=== PATIENT | female | born 1930 | race Caucasian/White ===

== ENCOUNTER 2016-10-31 11:59 | Emergency (ER) | payer OTHER ==
[2016-10-31 12:10] VITALS: BP 144/86; PULSE 82; TEMP 98.3; BMI 31.2
[2016-10-31] MEDS ORDERED: KETOROLAC TROMETHAMINE 30 MG/1 ML VIAL IM ONE (13:05)
--- NOTE | 2016-10-31 13:13 | PDOC ---
History of Present Illness - General Chief Complaint: Pain Stated Complaint: PAIN Time Seen by Provider: 10/31/16 12:27 - History of Present Illness Initial Comments: 10/31/16 13:07 CHIEF COMPLAINT: hip/leg pain HISTORY OF PRESENT ILLNESS: 86 yo F with hx of HTN [facility] with chronic hip and leg pain. Patient reports that she has had this pain "for a long time" and was in physical therapy last year for it, which did help but the pain has returned. She describes the pain as started from her left lower back radiating down her L hip and leg. She was prescribed gabapentin and ibuprofen by her primary care doctor but she has stopped taking the ibuprofen. She reports that the gabapentin does help with her pain but only for a short amount of time. She denies any recent fall, trauma, or injury. She denies any loss of sensation to her legs or any loss of bowel or bladder function. No recent travel or sick contacts. PAST MEDICAL HISTORY: Denies past medical history FAMILY HISTORY: Denies SOCIAL HISTORY: Denies tobacco, alcohol, illicit drug use. SURGICAL HISTORY: Denies ALLERGIES: N REVIEW OF SYSTEMS General/Constitutional: Denies fever or chills. Denies weakness, weight change. HEENT: Denies change in vision. Denies ear pain or discharge. Denies sore throat. Cardiovascular: Denies chest pain or shortness of breath. Respiratory: Denies cough, wheezing, or hemoptysis. Gastrointestinal: Denies nausea, vomiting, diarrhea or constipation. Denies rectal bleeding. Genitourinary: Denies dysuria, frequency, or change in urination. Musculoskeletal: Left lower back/hip/leg pain. Denies neck pain Skin and breasts: Denies rash or easy bruising. Neurologic: Denies headache, vertigo, loss of consciousness, or loss of sensation. PHYSICAL EXAM General Appearance: Well-appearing, appropriately dressed. No apparent distress. HEENT: EOMI, PERRLA Respiratory/Chest: Lungs CTAB. Cardiovascular: RRR. S1, S2. Gastrointestinal/Abdominal: Normal bowel sounds. Abdomen soft, non-distended. No tenderness or rebound tenderness. No organomegaly, pulsatile mass, guarding , hernia, hepatomegaly, splenomegaly. Musculoskeletal/Extremities: Tenderness to L hip on palpation. Normal inspection. FROM of all extremities, normal capillary refill. Pelvis Stable. No tenderness to extremities, pedal edema, swelling, erythema or deformity. Integumentary: Appropriate color, dry, warm. No cyanosis, erythema, jaundice or rash Neurologic: microstrategy developer II-XII intact. Fully oriented, alert. Appropriate mood/affect. Motor strength 5/5. No appreciable EOM palsy, facial droop or sensory deficit. Past History - Past Medical History Allergies/Adverse Reactions: Allergies Allergy/AdvReac Type Severity Reaction Status Date / Time Penicillins Allergy Unknown Verified 10/31/16 12:06 Home Medications: Ambulatory Orders Aspirin [Aspirin EC] 81 mg PO DAILY 06/09/11 Enalapril Maleate [Vasotec -] 2.5 mg PO DAILY 06/09/11 Hydrochlorothiazide [Hydrodiuril] 25 mg PO DAILY 06/09/11 Ibuprofen [Motrin -] 600 mg PO QID 03/29/14 Anemia: No Asthma: No Cancer: No Cardiac Disorders: No CVA: No COPD: No CHF: No Dementia: No Diabetes: No GI Disorders: No Disorders: No HTN: Yes Hypercholesterolemia: No Liver Disease: No Seizures: No Thyroid Disease: No - Surgical History Abdominal Surgery: Yes Appendectomy: Yes Cardiac Surgery: No Cholecystectomy: Yes Lung Surgery: No Neurologic Surgery: No Orthopedic Surgery: No - Psycho/Social/Smoking Cessation Hx Anxiety: No Suicidal Ideation: No Smoking Status: No Smoking History: Never smoked Have you smoked in the past 12 months: No Number of Cigarettes Smoked Daily: 0 Information on smoking cessation initiated: No Hx Alcohol Use: No Drug/Substance Use Hx: No Substance Use Type: None Hx Substance Use Treatment: No *Physical Exam - Vital Signs Last Vital Signs Temp Pulse Resp BP Pulse Ox 98.3 F 82 18 144/86 100 10/31/16 12:07 10/31/16 12:07 10/31/16 12:07 10/31/16 12:07 10/31/16 12:07 Medical Decision Making - Medical Decision Making 10/31/16 13:11 86 yo F with hx of HTN [facility] with chronic L hip and leg pain. -30 mg IM Toradol Advised patient to f/u with orthopedics for MRI/PT and of signs and symptoms for return to ER. Patient and daughter at bedside verbalized understanding and agree to plan. *DC/Admit/Observation/Transfer Diagnosis at time of Disposition: Leg pain, left Hip pain Qualifiers: Laterality: left Qualified Code(s): M25.552 - Pain in left hip - Discharge Dispostion Disposition: HOME Condition at time of disposition: Stable Admit: No - Referrals Referrals: Melva Lopez MD [Primary Care Provider] - Mayur Castellon MD [Staff Physician] - - Patient Instructions Printed Discharge Instructions: Help for Hip Pain, DI for Back Pain With Sciatica Additional Instructions: As discussed, please continue taking the gabapenting that was prescribed by your primary care doctor. Please follow up with orthopedics this week for a possible MRI and/or physical therapy to help with your pain. If you experience any numbness, tingling, or loss of sensation to your legs, loss of bowel or bladder function, fever, chest pain, shortness of breath, or any new or worsening symptoms, please return to the ER. [place] se discuti, por favor contine tomando gabapentin que fue recetado por romo mdico. Por favor, siga con la ortopedia esta semana para namita posible MRI y / o terapia fsica para ayudar con romo dolor. Si experimenta cualquier entumecimiento , hormigueo o prdida de sensibilidad en las piernas, prdida de la funcin de orina or defecacion, fiebre, dolor en el pecho, dificultad para respirar o cualquier sntoma nuevo o que empeora, por favor regrese a la edvin de emergencias. Print Language: NAMIBIAN
[2016-10-31] MEDS ORDERED: KETOROLAC TROMETHAMINE 30 MG/1 ML VIAL ONE (13:15)
== END 2016-10-31 13:34 | disposition home or self-care (01) ==
LOC: JERFT 11:59
PROC: 3E0233Z Introduction of Anti-inflammatory into Muscle, Percutaneous Approach (ICD-10-PCS; principal; 2016-10-31)
DX: M25.552 Pain in left hip (principal); M79.605 Pain in left leg; G89.29 Other chronic pain
CPT/HCPCS: 96372; 99281-25

== ENCOUNTER 2016-11-14 06:48 | Emergency (ER) | payer OTHER ==
[2016-11-14 07:25] VITALS: BP 124/68; PULSE 76; TEMP 98; BMI 31.4
--- NOTE | 2016-11-14 08:20 | PDOC ---
History of Present Illness - General Chief Complaint: Back Pain Stated Complaint: RIGHT HIP PAIN Time Seen by Provider: 11/14/16 08:17 History Source: Patient Exam Limitations: No Limitations - History of Present Illness Initial Comments: CHIEF COMPLAINT: 86 y/o afebrile female with PMH HTN here with right hip and leg pain. HISTORY OF PRESENT ILLNESS: The patient has chronic left hip pain, was seen here about 10 days ago for that pain and had a toradol injection in her right buttock. She states since then she has had right hip pain that radiates into her right leg. She is currently taking meloxicam once a day for her symptoms which doesn't help as much as the ibuprofen she used to take. She denies fall, trauma to back or hip, inability to walk, numbness/tingling in LEs, saddle anesthesia, bowel/bladder incontinence. Vital signs on arrival are within normal limits. REVIEW OF SYSTEMS: GENERAL/CONSTITUTIONAL: No fever/chills. No weakness. No weight change.. GENITOURINARY: No dysuria, frequency, or change in urination. MUSCULOSKELETAL: +right hip pain. No neck or back pain. SKIN: No rash or easy bruising. NEUROLOGIC: No headache, vertigo, loss of consciousness, or loss of sensation. PHYSICAL EXAM GENERAL: The patient is awake, alert, and fully oriented, in no acute distress. She ambulates with a limp and uses a cane. HEAD: Normal with no signs of trauma. EYES: Pupils equal, round and reactive to light, extraocular movements intact, sclera anicteric, conjunctiva clear. BACK: No midline lumbar spine TTP. Full flexion/extension of lumbar spine. EXTREMITIES: Normal range of motion, no edema. Pain and reproduction of sympotoms with palpation of right buttock, especially in the area of the piriformis muscles. NEUROLOGICAL: Normal speech. ambulates with limp. No saddle anesthesia. SKIN: Warm, Dry, normal turgor, no rashes or lesions noted. Past History - Past Medical History Allergies/Adverse Reactions: Allergies Allergy/AdvReac Type Severity Reaction Status Date / Time Penicillins Allergy Unknown Verified 11/14/16 07:05 Home Medications: Ambulatory Orders Aspirin [Aspirin EC] 81 mg PO DAILY 06/09/11 Enalapril Maleate [Vasotec -] 2.5 mg PO DAILY 06/09/11 Hydrochlorothiazide [Hydrodiuril] 25 mg PO DAILY 06/09/11 Ibuprofen [Motrin -] 600 mg PO QID 03/29/14 Meloxicam [Mobic (Nf) -] 15 mg PO DAILY #30 tablet MDD 15mg 11/03/16 Anemia: No Asthma: No Cancer: No Cardiac Disorders: No CVA: No COPD: No CHF: No Dementia: No Diabetes: No GI Disorders: No Disorders: No HTN: Yes Hypercholesterolemia: No Liver Disease: No Seizures: No Thyroid Disease: No - Surgical History Abdominal Surgery: Yes Appendectomy: Yes Cardiac Surgery: No Cholecystectomy: Yes Lung Surgery: No Neurologic Surgery: No Orthopedic Surgery: No - Psycho/Social/Smoking Cessation Hx Anxiety: No Suicidal Ideation: No Smoking Status: No Smoking History: Never smoked Have you smoked in the past 12 months: No Number of Cigarettes Smoked Daily: 0 Information on smoking cessation initiated: No Hx Alcohol Use: No Drug/Substance Use Hx: No Substance Use Type: None Hx Substance Use Treatment: No *Physical Exam - Vital Signs Last Vital Signs Temp Pulse Resp BP Pulse Ox 98.0 F 76 18 124/68 100 11/14/16 07:05 11/14/16 07:05 11/14/16 07:05 11/14/16 07:05 11/14/16 07:05 Medical Decision Making - Medical Decision Making A/P: 86 y/o female with right sided sciatica. When she was here 10 days ago she was instructed to call Dr. Castellon and her PCP for follow up MRI and physical therapy. She has not called either doctor. I strongly encouraged her to follow up with both as soon as possible. Her daughter is here with her and states she will call today. I showed her some stretching exercises in the ER to help with her pain and suggested she do them every hour but she is refusing because it causes pain. I suggested she stop taking the meloxicam and restart taking the ibuprofen as it helped her more. Pt instructed to return to the ER with any worsening or concerning symptoms. The patient verbalizes understanding of all instructions, has no further questions and is awaiting discharge. *DC/Admit/Observation/Transfer Diagnosis at time of Disposition: Piriformis syndrome of right side - Discharge Dispostion Disposition: HOME Condition at time of disposition: Good - Referrals Referrals: Melva Lopez MD [Primary Care Provider] - (Call today) Mayur Castellon MD [Staff Physician] - (Call today) - Patient Instructions Printed Discharge Instructions: DI for Sciatica Additional Instructions: Discharge Instructions: -Stop taking Meloxicam. Start taking Ibuprofen again - you can take 3 times per day with food -Stretch both hips every hour at home -Call Dr. Gely Nelson and Dr. Castellon today to schedule follow up appointments for MRI and Physical therapy Instrucciones de sudhakar: - Deje de misael Meloxicam. Comience a misael de nuevo el ibuprofeno - puede misael 3 veces al da con alimentos - Estirar ambas caderas cada hora en casa - Llame al Dr. Gely Nelson y al Dr. Ravinder huggins para programar citas de seguimiento para MRI y Fisioterapia
== END 2016-11-14 09:06 | disposition home or self-care (01) ==
LOC: JERFT 06:48 → JER 06:48 → JERFT 09:06
DX: M54.31 Sciatica, right side (principal); I10 Essential (primary) hypertension
CPT/HCPCS: 99281-25

== ENCOUNTER 2018-11-01 06:17 | Emergency (ER) | payer OTHER | END 2018-11-01 11:08 | disposition home or self-care (01) | LOC: JER 06:17 ==

== ENCOUNTER 2019-07-24 06:42 | Emergency (ER) | payer OTHER ==
[2019-07-24 06:58] VITALS: BMI 29.9
[2019-07-24 07:59] LABS: BASO % 0.9 % (0-2.0); EOS % 2.2 % (0-4.5); HEMATOCRIT 40.8 % (32.4-45.2); HEMOGLOBIN 13.9 GM/dL (10.7-15.3); LYMPH % 20.6 % (8-40); MCH 33.5 pg (25.7-33.7); MCHC 34.1 g/dl (32.0-36.0); MEAN CELL VOLUME 98.3 fl (80-96); MEAN PLT VOLUME 8.4 fl (7.5-11.1); MONO % 11.3 % (3.8-10.2); PLATELET COUNT 241 K/MM3 (134-434); RBC 4.15 M/mm3 (3.60-5.2); RDW 14.6 % (11.6-15.6); WHITE BLOOD COUNT 5.5 K/mm3 (4.0-10.0)
[2019-07-24 08:22] LABS: ALBUMIN 3.4 g/dl (3.4-5.0); BLOOD UREA NITROGEN 19.1 mg/dL (7-18); CALCIUM 8.7 mg/dL (8.5-10.1); CREATININE 0.8 mg/dL (0.55-1.3); POTASSIUM 4.7 mmol/L (3.5-5.1); TOT PROT 7.1 g/dl (6.4-8.2)
[2019-07-24 08:30] LABS: PH,URINE 6.5 (5.0-8.0); URINE APPEARANCE CLEAR; URINE BILIRUBIN NEGATIVE (NEGATIVE); URINE COLOR YELLOW; URINE GLUCOSE (UA) NEGATIVE (NEGATIVE); URINE KETONE NEGATIVE (NEGATIVE); URINE LEUK ESTERASE NEGATIVE (NEGATIVE); URINE NITRITE NEGATIVE (NEGATIVE); URINE PROTEIN NEGATIVE (NEGATIVE); URINE UROBILINOGEN 0.2 mg/dL (0.2-1.0)
--- NOTE | 2019-07-24 08:34 | PDOC ---
Documentation entered by Mouna Abraham SCRIBE, acting as scribe for Braden Ornelas MD. Braden Ornelas MD: This documentation has been prepared by the Jarad de anda Adrianna, SCRIBE, under my direction and personally reviewed by me in its entirety. I confirm that the documentation accurately reflects all work, treatment, procedures, and medical decision making performed by me. History of Present Illness - General Chief Complaint: Urinary Problem Stated Complaint: URINARY RETENTION Time Seen by Provider: 07/24/19 07:10 - History of Present Illness Initial Comments: The patient is an 89 year old female, with a significant PMH of HTN, depression , and overactive bladder, who presents to the ED for evaluation of urinary retention and constipation for 2-3 days. Patient complains of urinary urgency and frequency, but voids little to no urine (feels like she cannot void entirely ). She states it takes effort to urinate, and when trying to do so she experiences suprapubic discomfort. Denies any dysuria or hematuria. Patient additionally complains of constipation, noting she strains but is only able to pass small, hard stools. Denies nausea, vomit, diarrhea, flank pain. Allergies: Penicillins Surgical History: Appendectomy, cholecystectomy Social History: No toxic habits PCP: Dr. Hong Past History - Past Medical History Allergies/Adverse Reactions: Allergies Allergy/AdvReac Type Severity Reaction Status Date / Time Penicillins Allergy Unknown Verified 07/24/19 06:58 Home Medications: Ambulatory Orders Bupropion HCl [Bupropion Xl] 150 mg PO DAILY 07/24/19 Cholecalciferol (Vitamin D3) [Vitamin D3] 50,000 unit PO WEEKLY 07/24/19 Enalapril Maleate 2.5 mg PO DAILY 07/24/19 Trospium Chloride [Trospium Chloride ER] 20 mg PO BID 07/24/19 Anemia: No Asthma: No Cancer: No Cardiac Disorders: No CVA: No COPD: No CHF: No DVT: No Dementia: No Diabetes: No GI Disorders: No Disorders: No HTN: Yes Hypercholesterolemia: No Liver Disease: No Seizures: No Thyroid Disease: No - Surgical History Abdominal Surgery: Yes Appendectomy: Yes Cardiac Surgery: No Cholecystectomy: Yes Lung Surgery: No Neurologic Surgery: No Orthopedic Surgery: No - Psycho Social/Smoking Cessation Hx Smoking Status: No Smoking History: Unknown if ever smoked Have you smoked in the past 12 months: No Number of Cigarettes Smoked Daily: 0 Hx Alcohol Use: No Drug/Substance Use Hx: No Substance Use Type: None Hx Substance Use Treatment: No Abd/GI Specific PMHX - Complaint Specific PMHX Colitis: No Diverticulitis: No Gall Bladder Disease: No GERD: No Hepatitis: No Irritable Bowel Synd (IBS): No Pancreatitis: No GI Ulcer Disease: No Review of Systems - Review of Systems Comments:: CONSTITUTIONAL: No fever, no chills, no fatigue EYES: No visual changes ENT: No ear pain, no sore throat CARDIOVASCULAR: No chest pain, no palpitations RESPIRATORY: No cough, no SOB GI: +Constipation. +Suprapubic discomfort when trying to void. No nausea, no vomiting, no diarrhea GENITOURINARY: +Urinary retention. +Urinary frequency. +Urinary urgency. No dysuria, no hematuria MUSKULOSKELETAL: No back pain, no joint pain, no myalgias SKIN: No rash NEURO: No headache *Physical Exam - Vital Signs Last Vital Signs Temp Pulse Resp BP Pulse Ox 98.3 F 96 H 18 147/72 95 07/24/19 06:51 07/24/19 06:51 07/24/19 06:51 07/24/19 06:51 07/24/19 06:51 - Physical Exam CONSTITUTIONAL: Well-appearing; well-nourished; in no apparent distress HEAD: Normocephalic; atraumatic EYES: PERRL; EOM intact ENMT: External appears normal; normal oropharynx NECK: Supple; non-tender; no cervical lymphadenopathy CARD: Normal S1, S2; no murmurs, rubs, or gallops RESP: Normal chest excursion with respiration; breath sounds clear and equal bilaterally; no wheezes, rhonchi, or rales ABD: Soft, non-distended; non-tender; no palpable organomegaly, no palpable hernias EXT: Normal ROM in all four extremities; non-tender to palpation; distal pulses intact SKIN: Warm, dry, no rash NEURO: No focal neurological deficiencies. ED Treatment Course - LABORATORY CBC & Chemistry Diagram: 07/24/19 07:40 07/24/19 07:40 - ADDITIONAL ORDERS Additional order review: Laboratory Results 07/24/19 07:40 Sodium 137 Potassium 4.7 Chloride 105 Carbon Dioxide 26 Anion Gap 5 L BUN 19.1 H Creatinine 0.8 Est GFR (CKD-EPI)AfAm 76.29 Est GFR (CKD-EPI)NonAf 65.82 Random Glucose 99 Calcium 8.7 Total Bilirubin 1.0 AST 19 ALT 17 Alkaline Phosphatase 75 Total Protein 7.1 Albumin 3.4 07/24/19 07:40 RBC 4.15 MCV 98.3 H MCHC 34.1 RDW 14.6 MPV 8.4 Neutrophils % 65.0 Lymphocytes % 20.6 D Monocytes % 11.3 H Eosinophils % 2.2 Basophils % 0.9 - RADIOLOGY Radiology Studies Ordered: Category Date Time Status ABDOMEN-KUB FLAT PLATE [RAD] Stat Radiology 07/24/19 07:29 Ordered Radiograph Interpretation: EXAM#: TYPE/EXAM: RESULT: [id number] RAD/ABDOMEN-KUB FLAT PLATE ADDENDUM ADDENDUM #1 Incidental note is made of some punctate densities seen in the excessive soft tissues and projected over the right colon. ORIGINAL REPORT Abdomen: Pain Impression: Constipation. Scoliosis with degenerative changes. Reported By: Venkatesh Brown MD 07/24/19 09:01 Medical Decision Making - Medical Decision Making 07/24/19 08:32 Patient is an 89-year-old Upper Sor[place]-speaking female with history of hypertension, depression, overactive bladder who presents to the ER with 3 days of persistent symptoms of constipation and difficulty urinating, requiring excessive straining to void. Patient denies abdominal pain/dysuria/fever/chills/nausea/ vomiting. In the ER, patient is awake and alert; serial abdominal exams reveal no focal abdominal tenderness. There is no CVA tenderness bilaterally. Cadena catheter placement revealed 200 mL of clear urine. I suspect patient's symptoms are related to medication used for treatment of the overactive bladder. Will obtain KUB to evaluate degree of constipation. Will consider fleets enema for treatment if noted. Will obtain CBC/CMP/UA/urine culture. Likely discharge. 07/24/19 09:23 As per patient reassessed. Patient is resting comfortably, remains symptom- free. CBC/CMP within normal limit. Urinalysis reveals no evidence of pyuria. KUB reveals significant amount of retained stool. Patient's urinary symptoms are likely related to her trospium treatment for hyperactive bladder. Patient has follow-up with PMD at which time I have advised the patient to discuss decreasing the dosage. Will prescribe mineral oil enema and MiraLAX for the treatment of constipation. Plan of care explained to the patient and her daughter and they have expressed understanding. Discharge - Discharge Information Problems reviewed: Yes Clinical Impression/Diagnosis: Dysuria Constipation Qualifiers: Constipation type: unspecified constipation type Qualified Code(s): K59.00 - Constipation, unspecified Condition: Stable Disposition: HOME - Follow up/Referral Referrals: Melva Lopez MD [Primary Care Provider] - - Patient Discharge Instructions Patient Printed Discharge Instructions: DI for Urinary Retention in Women, DI for Constipation Additional Instructions: Your difficulty urinating is likely related to trospium therapy. Please discuss with your primary care physician decreasing the dosage. Use mineral oil enemas and MiraLAX as prescribed. Return to the ER for severe abdominal pain, nausea, vomiting, fevers, chills. Print Language: MOHAWK - Post Discharge Activity
[2019-07-24 10:02] VITALS: BP 144/74; PULSE 83; TEMP 98.2
== END 2019-07-24 10:00 | disposition home or self-care (01) ==
LOC: JER 06:42 → EDBD 06:42 → JER 10:00
DX: K59.00 Constipation, unspecified (principal); I10 Essential (primary) hypertension; F32.9 Major depressive disorder, single episode, unspecified; N32.81 Overactive bladder
CPT/HCPCS: 36415; 74018-TC-FY; 80053; 81003; 85025; 87086; 99284-25

== ENCOUNTER 2020-02-20 07:41 | Emergency (ER) | payer OTHER ==
[2020-02-20 07:54] VITALS: TEMP 98.1; BMI 29.9
--- OUTSIDE RECORDS SUMMARY | 2020-02-20 08:02 | XMS ---
:1930 [facility] Providers Name Role Phone ED STAFF PHYSICIANHARRIETT Unavailable Unavailable ELIZABETH WYATT Unavailable Unavailable HERNANDEZ, HANNAH A DO Unavailable HERNANDEZ, A DO Unavailable HERNANDEZ, A DO Unavailable HERNANDEZ, A DO Unavailable HERNANDEZ, A DO Unavailable HERNANDEZ, A DO Unavailable HERNANDEZ, A DO Unavailable HERNANDEZ, A DO Unavailable ED STAFF PHYSICIAN Unavailable Unavailable NEGHASSI Unavailable Unavailable ED STAFF PHYSICIAN Unavailable Unavailable RANJIT POSADA Unavailable Unavailable ED STAFF PHYSICIAN Unavailable Unavailable CHASIDY CORDERO Unavailable Unavailable SHERINE Aldridge Unavailable Unavailable Re-disclosure Warning The records that you are about to access may contain information from federally- assisted alcohol or drug abuse programs. If such information is present, then the following federally mandated warning applies: This information has been disclosed to you from records protected by federal confidentiality rules (42 CFR part 2). The federal rules prohibit you from making any further disclosure of this information unless further disclosure is expressly permitted by the written consent of the person to whom it pertains or as otherwise permitted by 42 CFR part 2. A general authorization for the release of medical or other information is NOT sufficient for this purpose. The Federal rules restrict any use of the information to criminally investigate or prosecute any alcohol or drug abuse patient.The records that you are about to access may contain highly sensitive health information, the redisclosure of which is protected by Article 27-F of the [facility] Public Health law. If you continue you may haveaccess to information: Regarding HIV / AIDS; Provided by facilities licensed or operated by the [facility] Office of Mental Health; or Provided by the [facility] Office for People With Developmental Disabilities. If such information is present, then the following [facility] mandated warning applies: This information has been disclosed to you from confidential records which are protected by state law. State law prohibits you from making any further disclosure of this information without the specific written consent of the person to whom it pertains, or as otherwise permitted by law. Any unauthorized further disclosure in violation of state law may result in a fine or alf sentence or both. A general authorization for the release of medical or other information is NOT sufficient authorization for further disclosure. Allergies and Adverse Reactions Type Description Substance Reaction Status Data Source(s ) No Known No Known Allergies No Known eCW3 ( [facility] Allergies Allergies [facility]) No Known No Known Allergies No Known eCW3 ( [facility] Allergies Allergies [facility]) No Known No Known Allergies No Known eCW3 ( [facility] Allergies Allergies [facility]) No Known No Known Allergies No Known eCW3 ( [facility] Allergies Allergies [facility]) Encounters Encounter Providers Location Date Indications Data Source(s ) Emergency Attender: HARRIETT ED H 02/04/2020 Martha Covarrubias STAFF 06:52:00 AM EDT Medical C enter PHYSICIANAttender: - 02/04/2020 STAFF ED STAFF 10:32:00 AM EDT PHYSICIANAdmitter: HARRIETT ED STAFF PHYSICIAN Patient discharged. Emergency Attender: CONOR Diez 01/31/2020 08:09 :00 AM [facility] Lupe: STAFF ED STAFF EDT - 01/31/2020 [facility] PHYSICIANAdmitter: CONOR 10:39:00 AM EDT SHERINE PERDOMO CReferrer: STAFF ED STAFF PHYSICIAN Patient discharged. Outpatient Attender: DENYS Diez 01/20/2020 01:48:00 P M [facility] AKINYEMIAdmitter: GIL EDT [facility] BITACHODBRYAN PATRICKZUNI COMPRE[facility] HEALTH CENTERReferrer: HANNAH HERNANDEZ DO Emergency Attender: ED STAFF H 11/29/2019 08:16:00 AM [facility] PHYSICIANAttender: ELIZABETH EDT - 11/29/2019 [facility] OUSEPH ELIZABETH AAttender: STAFF 12:25:00 PM EDT ED STAFF PHYSICIANAdmitter: ED STAFF PHYSICIAN Patient discharged. 11/29/2019 12:00:00 AM [facility] Emergency Attender: CONOR Diez 09/10/2019 11:01:00 AM [facility] CAtgerry: STAFF EDT - 09/10/2019 06:09:0 0 Center ED STAFF PM EDT PHYSICIANAdmitter: CONOR Aldridge Patient discharged. Emergency Attender: PETRA ED STAFF H 05/04/2019 01:53:00 PM [facility] PHYSICIANAttender: STAFF ED EST - 05/04/2019 Medical Center STAFF PHYSICIANAdmitter: PETRA 07:53:00 PM EST ED STAFF PHYSICIAN Patient discharged. Outpatient [facility] 02/12/2019 12:00:00 e CW3 ([facility] A28 AM EDT - 02/12/2019 [facility] 12:00:00 AM EDT Care) Outpatient [facility] 02/05/2019 12:00:00 e CW3 ([facility] A28 AM EDT - 02/05/2019 [facility] 12:00:00 AM EDT Care) Outpatient [facility] 11/13/2018 12:00:00 e CW3 ([facility] A28 AM EDT - 11/13/2018 [facility] 12:00:00 AM EDT Care) Outpatient Attender: GIL Diez 11/08/2018 08:29:00 [facility] CHASIDY EDT Medical Sheri shahid GILAdmitter: GIL CORDEROReferrer: CODY MCKEON Outpatient [facility] 11/05/2018 12:00:00 e CW3 ([facility] A28 AM EDT - 11/05/2018 [facility] 12:00:00 AM EDT Care) Emergency H 10/01/2018 06:58:00 [facility] EDT [facility] Immunizations Vaccine Date Status Description Data Source(s) Tdap 02/23/2012 09:22:20 AM completed eCW3 ([facility] EDT Care) Medications Medication Brand Start Product Dose Route Administrative Pharmacy [facility] Indications Reaction Description Data Name Date Form Instructions Instructions Source(s) Vitamin B Vitami 10/01/ active Vitamin B -12 eCW3 12 0.05 MG n B-12 2019 50 MCG ([facility] Oral Tablet 50 MCG 12:00: Rive r Vitamin 00 AM Health B-12 50 MCG EDT Care) Vitamin B Vitami 10/01/ suspend Vitamin B-12 eCW3 12 0.05 MG n B-12 2019 ed 50 MCG ([facility] Oral Tablet 50 MCG 12:00: Rive r Vitamin 00 AM Health B-12 50 MCG EDT Care) Vitamin B Vitami 10/01/ suspend Vitamin B-12 eCW3 12 0.05 MG n B-12 2020 ed 50 MCG ([facility] Oral Tablet 50 MCG 12:00: Rive r Vitamin 00 AM Health B-12 50 MCG EDT Care) Vitamin B Vitami 10/01/ active Vitamin B -12 eCW3 12 0.05 MG n B-12 2019 50 MCG ([facility] Oral Tablet 50 MCG 12:00: Rive r Vitamin 00 AM Health B-12 50 MCG EDT Care) Trazodone Trazod 1.0 active Trazodone eCW3 Hydrochlori one 2019 {tabl HCl 50 MG ([facility] de 50 MG HCl 50 12:00: et_at [place] Oral Tablet MG 00 AM _bedt Health Trazodone EST ime_a Care) HCl 50 MG s_nee ded} Trazodone Trazod 1.0 active Trazodone eCW3 Hydrochlori one 2019 {tabl HCl 50 MG ([facility] de 50 MG HCl 50 12:00: et_at [place] Oral Tablet MG 00 AM _bedt Health Trazodone EST ime_a Care) HCl 50 MG s_nee ded} Blood Blood 11/13/ suspend Blood eCW3 Pressure Pressu 2019 ed Pressure ([facility] Monitor - re 12:00: Monitor - Lorie er Monito 00 AM Health r - EDT Care) RAI Bandage UNK 11/13/ suspend RAI Band age eCW3 - 2018 ed - ([facility] 12:00: [facility] 00 AM Health EDT Care) Acetaminoph Acetam 11/13/ active Acetami nophe eCW3 en 500 MG inophe 2019 n 500 mg ([facility] Oral Tablet n 500 12:00: [facility] Acetaminoph mg 00 AM Health en 500 mg EDT Care) Acetaminoph Acetam 11/13/ active Acetami nophe eCW3 en 500 MG inophe 2019 n 500 mg ([facility] Oral Tablet n 500 12:00: [facility] Acetaminoph mg 00 AM Health en 500 mg EDT Care) RAI Bandage UNK 11/13/ suspend RAI Band age eCW3 - 2018 ed - ([facility] 12:00: [facility] 00 AM Health EDT Care) Acetaminoph Acetam 11/13/ active Acetami nophe eCW3 en 500 MG inophe 2019 n 500 mg ([facility] Oral Tablet n 500 12:00: [facility] Acetaminoph mg 00 AM Health en 500 mg EDT Care) RAI Bandage UNK 11/13/ suspend RAI Band age eCW3 - 2018 ed - ([facility] 12:00: [facility] 00 AM Health EDT Care) Blood Blood 11/13/ suspend Blood eCW3 Pressure Pressu 2019 ed Pressure ([facility] Monitor - re 12:00: Monitor - Lorie er Monito 00 AM Health r - EDT Care) Blood Blood 11/13/ suspend Blood eCW3 Pressure Pressu 2019 ed Pressure ([facility] Monitor - re 12:00: Monitor - Lorie er Monito 00 AM Health r - EDT Care) Acetaminoph Acetam 11/13/ active Acetami nophe eCW3 en 500 MG inophe 2019 n 500 mg ([facility] Oral Tablet n 500 12:00: [facility] Acetaminoph mg 00 AM Health en 500 mg EDT Care) RAI Bandage UNK suspend RAI Band age eCW3 - 2019 ed - ([facility] 12:00: [facility] 00 AM Health EDT Care) Blood Blood suspend Blood eCW3 Pressure Pressu 2018 ed Pressure ([facility] Monitor - re 12:00: Monitor - Lorie er Monito 00 AM Health r - EDT Care) cetirizine ZyrTEC .0 suspend ZyrTEC eCW3 hydrochlori Allerg 2018 {tabl ed Allergy 10 ([facility] de 10 MG y 10 12:00: et} mg [place] Oral Tablet mg 00 AM Health [[facility]] EST Care) ZyrTEC Allergy 10 mg cetirizine ZyrTEC .0 suspend ZyrTEC eCW3 hydrochlori Allerg 2018 {tabl ed Allergy 10 ([facility] de 10 MG y 10 12:00: et} mg [place] Oral Tablet mg 00 AM Health [[facility]] EST Care) ZyrTEC Allergy 10 mg Flonase 50 Flonas .0 suspend Flonase 50 eCW3 MCG/DOSE e 50 2017 {spra ed MCG/DOSE ([facility] MCG/DO 12:00: y_in_ [place] SE 00 AM each_ Health EST nostr Care) il} Flonase 50 Flonas .0 suspend Flonase 50 eCW3 MCG/DOSE e 50 2017 {spra ed MCG/DOSE ([facility] MCG/DO 12:00: y_in_ [place] SE 00 AM each_ Health EST nostr Care) il} cetirizine ZyrTEC .0 suspend ZyrTEC eCW3 hydrochlori Allerg 2018 {tabl ed Allergy 10 ([facility] de 10 MG y 10 12:00: et} mg [place] Oral Tablet mg 00 AM Health [[facility]] EST Care) ZyrTEC Allergy 10 mg Flonase 50 Flonas .0 suspend Flonase 50 eCW3 MCG/DOSE e 50 2017 {spra ed MCG/DOSE ([facility] MCG/DO 12:00: y_in_ [place] SE 00 AM each_ Health EST nostr Care) il} Flonase 50 Flonas .0 suspend Flonase 50 eCW3 MCG/DOSE e 50 2018 {spra ed MCG/DOSE ([facility] MCG/DO 12:00: y_in_ [place] SE 00 AM each_ Health EST nostr Care) il} cetirizine ZyrTEC .0 suspend ZyrTEC eCW3 hydrochlori Allerg 2018 {tabl ed Allergy 10 ([facility] de 10 MG y 10 12:00: et} mg [place] Oral Tablet mg 00 AM Health [Zyrte] EST Care) ZyrTEC Allergy 10 mg Simvastatin Zocor .0 suspend Zocor 2 0 mg eCW3 20 MG Oral 20 mg 2016 {tabl ed ([facility] Tablet 12:00: et_in [place] [Zocor] 00 AM _the_ Health Zocor 20 mg EDT eveni Care) ng} Simvastatin Zocor .0 suspend Zocor 2 0 mg eCW3 20 MG Oral 20 mg 2016 {tabl ed ([facility] Tablet 12:00: et_in [place] [Zocor] 00 AM _the_ Health Zocor 20 mg EDT eveni Care) ng} Simvastatin Zocor .0 suspend Zocor 2 0 mg eCW3 20 MG Oral 20 mg 2017 {tabl ed ([facility] Tablet 12:00: et_in [place] [Zocor] 00 AM _the_ Health Zocor 20 mg EDT eveni Care) ng} Simvastatin Zocor .0 suspend Zocor 2 0 mg eCW3 20 MG Oral 20 mg 2017 {tabl ed ([facility] Tablet 12:00: et_in [place] [Zocor] 00 AM _the_ Health Zocor 20 mg EDT eveni Care) ng} gabapentin Gabape .0 suspend Gabapen tin eCW3 300 MG Oral ntin 2017 {caps ed 300 MG ([facility] Capsule 300 MG 12:00: ule} [facility] Gabapentin 00 AM Health 300 MG EST Care) gabapentin Gabape .0 suspend Gabapen tin eCW3 300 MG Oral ntin 2017 {caps ed 300 MG ([facility] Capsule 300 MG 12:00: ule} [facility] Gabapentin 00 AM Health 300 MG EST Care) gabapentin Gabape .0 suspend Gabapen tin eCW3 300 MG Oral ntin 2017 {caps ed 300 MG ([facility] Capsule 300 MG 12:00: ule} [facility] Gabapentin 00 AM Health 300 MG EST Care) gabapentin Gabape .0 suspend Gabapen tin eCW3 300 MG Oral ntin 2017 {caps ed 300 MG ([facility] Capsule 300 MG 12:00: ule} [place] Gabapentin 00 AM Health 300 MG EST Care) Aspirin 81 ASPIRI 1.0 suspend ASPIRIN 81 eCW3 MG Delayed N 81 2016 {tabl ed mg ([facility] Release mg 12:00: et} [facility] Oral Tablet 00 AM Health ASPIRIN 81 EDT Care) mg Aspirin 81 ASPIRI .0 suspend ASPIRIN 81 eCW3 MG Delayed N 81 2016 {tabl ed mg ([facility] Release mg 12:00: et} [facility] Oral Tablet 00 AM Health ASPIRIN 81 EDT Care) mg Aspirin 81 ASPIRI .0 suspend ASPIRIN 81 eCW3 MG Delayed N 81 2016 {tabl ed mg ([facility] Release mg 12:00: et} [place] Oral Tablet 00 AM Health ASPIRIN 81 EDT Care) mg Aspirin 81 ASPIRI 1.0 suspend ASPIRIN 81 eCW3 MG Delayed N 81 2016 {tabl ed mg ([facility] Release mg 12:00: et} [place] Oral Tablet 00 AM Health ASPIRIN 81 EDT Care) mg Meclizine Mecliz .0 suspend Meclizin e eCW3 Hydrochlori ine 2013 {tabl ed HCl 12.5 MG ([facility] de 12.5 MG HCl 12:00: ets_a [place] Oral Tablet 12.5 00 AM s_nee Health Meclizine MG EDT ded} Care) HCl 12.5 MG Meclizine Mecliz .0 suspend Meclizin e eCW3 Hydrochlori ine 2013 {tabl ed HCl 12.5 MG ([facility] de 12.5 MG HCl 12:00: ets_a [place] Oral Tablet 12.5 00 AM s_nee Health Meclizine MG EDT ded} Care) HCl 12.5 MG Meclizine Mecliz 09/11/ 1.0 active Meclizine eCW3 Hydrochlori ine 2014 {tabl HCl 12.5 MG ([facility] de 12.5 MG HCl 12:00: ets_a [place] Oral Tablet 12.5 00 AM s_nee Health Meclizine MG EDT ded} Care) HCl 12.5 MG Meclizine Mecliz .0 active Meclizine eCW3 Hydrochlori ine 2013 {tabl HCl 12.5 MG ([facility] de 12.5 MG HCl 12:00: ets_a [place] Oral Tablet 12.5 00 AM s_nee Health Meclizine MG EDT ded} Care) HCl 12.5 MG olopatadine Patada 1.0 suspend Patada y 0.2 eCW3 2 MG/ML y 0.2 2013 {drop ed % ([facility] Ophthalmic % 12:00: _into [place] Solution 00 AM _affe Health [Pataday] EDT cted_ Care) Pataday 0.2 eye} % olopatadine Patada 1.0 suspend Patada y 0.2 eCW3 2 MG/ML y 0.2 2014 {drop ed % ([facility] Ophthalmic % 12:00: _into [place] Solution 00 AM _[facility] [Pataday] EDT cted_ Care) Pataday 0.2 eye} % olopatadine Patada 1.0 suspend Patada y 0.2 eCW3 2 MG/ML y 0.2 2013 {drop ed % ([facility] Ophthalmic % 12:00: _into [place] Solution 00 AM _[facility] [Pataday] EDT cted_ Care) Pataday 0.2 eye} % olopatadine Patada 1.0 suspend Patada y 0.2 eCW3 2 MG/ML y 0.2 2013 {drop ed % ([facility] Ophthalmic % 12:00: _into [place] Solution 00 AM _[facility] [Pataday] EDT cted_ Care) Pataday 0.2 eye} % Cholecalcif Cholec suspend Cholecal cife eCW3 carole [id number] alcife ed rol [id number] ([facility] ud[facility] UNT Oral rol UNIT [facility] Capsule 66570 Health Cholecalcif UNIT Care) carole [id number] UNIT Ibuprofen Ibupro suspend Ibuprofen eCW3 800 MG Oral fen ed 800 MG ([facility] Tablet 800 MG [facility] Care) Enalapril Enalap 1.0 active Enalapril e CW3 Maleate 2.5 ril {tabl Maleate 2.5 ([facility] MG Oral Maleat et} MG [facility] Tablet e 2.5 Health Care) Estradiol Estrac suspend Estrace 0. 1 eCW3 0.1 MG/ML e 0.1 ed MG/GM ([facility] Vaginal MG/GM [facility] [Estrace] Care) Estrace 0.1 MG/GM miconazole [id number] 1.5 complet Monistat 1 [facility] nitrate mL ed Combo Pack Deonte s (Monistat 1 Medical Combo Pack) Center 1,200 mg-2 % Kit, Ordered By: Josey Ramos s: 1.5 mL per vagina twice a day Estradiol Estrac suspend Estrace 0. 1 eCW3 0.1 MG/ML e 0.1 ed MG/GM ([facility] Vaginal MG/GM [facility] [Estrace] Care) Estrace 0.1 MG/GM Simvastatin Simvas suspend Simvasta tin eCW3 20 MG Oral tatin ed 20 MG ([facility] Tablet 20 MG [facility]) Ibuprofen Ibupro suspend Ibuprofen eCW3 800 MG Oral fen ed 800 MG ([facility] Tablet 800 MG [facility]) Trazodone Trazod 1.0 suspend Trazodone eCW3 Hydrochlori one {tabl ed HCl 50 MG (H udson de 50 MG HCl 50 et_at [place] Oral Tablet MG _bedt [facility] Trazodone ime_a Care) HCl 50 MG s_nee ded} Aspirin 81 Aspiri 1.0 suspend Aspirin 8 1 eCW3 MG Chewable n 81 {tabl ed MG ([facility] Tablet MG et} [facility] Care) Ibuprofen Ibupro suspend Ibuprofen eCW3 800 MG Oral fen ed 800 MG ([facility] Tablet 800 MG [facility]) Estradiol Estrac suspend Estrace 0. 1 eCW3 0.1 MG/ML e 0.1 ed MG/GM ([facility] Vaginal MG/GM Exira Cream [facility] [Estrace] Care) Estrace 0.1 MG/GM gabapentin Gabape 1.0 active Gabapentin eCW3 100 MG Oral ntin {caps 100 MG ([facility] Capsule 100 MG ule} [facility] Gabapentin Health 100 MG Care) Cholecalcif Cholec suspend Cholecal cife eCW3 carole [id number] [place] rol [id number] ([facility] UNT Oral rol UNIT [place] Capsule 79924 Health Cholecalcif UNIT Care) carole [id number] UNIT Ibuprofen IBUPRO 1.0 active IBUPROFEN e CW3 400 MG Oral FEN {tabl 400 MG ([facility] Tablet 400 MG et} [facility] IBUPROFEN Health 400 MG Care) Aspirin 81 Aspiri 1.0 suspend Aspirin 8 1 eCW3 MG Chewable n 81 {tabl ed MG ([facility] Tablet MG et} [facility]) Ibuprofen Ibupro suspend Ibuprofen eCW3 800 MG Oral fen ed 800 MG ([facility] Tablet 800 MG [facility]) Pramipexole Pramip 1.0 suspend Pramipex ole eCW3 Dihydrochlo exole {tabl ed Dihydrochlo r ([facility] ride 0.5 MG Dihydr et} ludwig 0.5 MG [facility]) 0.5 MG trospium Trospi 1.0 suspend Trospium eC W3 chloride 20 um {tabl ed Chloride 20 ([facility] MG Oral Chlori et_at MG [place] Tablet de 20 _bedt Health Trospium MG ime_o Care) Chloride 20 n_an_ MG empty _stom ach} Cholecalcif Cholec suspend Cholecal cife eCW3 carole [id number] [place] rol [id number] ([facility] UNT Oral rol UNIT [place] Capsule 63534 Health Cholecalcif UNIT Care) carole [id number] UNIT Vitamin D Vitami 1.0 active Vitamin D 5 0 eCW3 50 MCG n D 50 {caps MCG (1999 ([facility] (1999 [place]) MCG ule} [place]) [place] (1999 Health [place]) Care) Simvastatin Simvas suspend Simvasta tin eCW3 20 MG Oral tatin ed 20 MG ([facility] Tablet 20 MG [facility] Care) Fluconazole flucon 1 complet Raul nt 100 MG Oral azole ed Marci Tablet 100 mg Medical fluconazole Tablet Center 100 mg , Tablet, Ordere Ordered By: d By: Mine Metzgerirection ch, s: 1 tablet MDDire oral daily ctions : 1 tablet oral daily trospium Trospi 1.0 active Trospium eCW 3 chloride 20 um {tabl Chloride 20 ([facility] MG Oral Chlori et_at MG [facility] Tablet de 20 _bedt Health Trospium MG ime_o Care) Chloride 20 n_an_ MG empty _stom ach} Ibuprofen IBUPRO 1.0 active IBUPROFEN e CW3 400 MG Oral FEN {tabl 400 MG ([facility] Tablet 400 MG et} [facility] IBUPROFEN Health 400 MG Care) Enalapril Enalap 1.0 active Enalapril e CW3 Maleate 2.5 ril {tabl Maleate 2.5 ([facility] MG Oral Maleat et} MG [place] Tablet e 2.5 Health MG Care) Ketorolac ketoro 1 complet [facility] Tromethamin lac 10 ed Deonte s e 10 MG mg Medical Oral Tablet Tablet Center ketorolac , 10 mg Ordere Tablet, d By: Ordered By: Conor Mott, , MDDirection MDDire s: 1 tablet ctions oral every : 1 six hours tablet PRN pain oral every six hours PRN pain Enalapril Enalap 1.0 active Enalapril e CW3 Maleate 2.5 ril {tabl Maleate 2.5 ([facility] MG Oral Maleat et} MG [facility] Tablet e 2.5 Health MG Care) gabapentin Gabape 1.0 active Gabapentin eCW3 100 MG Oral ntin {caps 100 MG ([facility] Capsule 100 MG ule} [facility] Gabapentin Health 100 MG Care) Vitamin D Vitami 1.0 suspend Vitamin D 50 eCW3 50 MCG n D 50 {caps ed MCG (1999 ([facility] ([place]) MCG ule} [place]) [place] (1999 Health [place]) Care) Estradiol Estrac suspend Estrace 0. 1 eCW3 0.1 MG/ML e 0.1 ed MG/GM ([facility] Vaginal MG/GM Exira Cream Health [Estrace] Care) Estrace 0.1 MG/GM Trazodone Trazod 1.0 active Trazodone e CW3 Hydrochlori one {tabl HCl 50 MG (H udson de 50 MG HCl 50 et_at [place] Oral Tablet MG _bedt Health Trazodone ime_a Care) HCl 50 MG s_nee ded} Vitamin D Vitami 1.0 active Vitamin D 5 0 eCW3 50 MCG n D 50 {caps MCG (1999 ([facility] (1999 [place]) MCG ule} [place]) [place] (1999 Health [place]) Care) Enalapril Enalap 1.0 active Enalapril e CW3 Maleate 2.5 ril {tabl Maleate 2.5 ([facility] MG Oral Maleat et} MG [place] Tablet e 2.5 Health MG Care) Aspirin 81 Aspiri 1.0 suspend Aspirin 8 1 eCW3 MG Chewable n 81 {tabl ed MG ([facility] Tablet MG et} [facility] Care) Vitamin D Vitami 1.0 suspend Vitamin D 50 eCW3 50 MCG n D 50 {caps ed MCG (1999 ([facility] ([place]) MCG ule} [place]) [place] ([facility]) Care) Ibuprofen IBUPRO 1.0 active IBUPROFEN e CW3 400 MG Oral FEN {tabl 400 MG ([facility] Tablet 400 MG et} [facility] IBUPROFEN Health 400 MG Care) gabapentin gabape 1 complet Martha t 100 MG Oral ntin ed Marci Capsule 100 mg Medical gabapentin Capsul Center 100 mg e, Capsule, Ordere Ordered By: d By: Rhonda Brice, Yuniel, MDDirection MDDire s: 1 ctions capsule : 1 oral twice capsul a day e oral twice a day Ibuprofen ibupro 1 complet [facility] 400 MG Oral fen ed Marci Tablet 400 mg Medical ibuprofen Tablet Center 400 mg , Tablet, Ordere Ordered By: d By: odilon Casas MDDirection Leno, s: 1 tablet MDDire oral every ctions six hours : 1 PRN pain tablet oral every six hours PRN pain trospium Trospi 1.0 active Trospium eCW 3 chloride 20 um {tabl Chloride 20 ([facility] MG Oral Chlori et_at MG [place] Tablet de 20 _bedt Health Trospium MG ime_o Care) Chloride 20 n_an_ MG empty _stom ach} Aspirin 81 Aspiri 1.0 suspend Aspirin 8 1 eCW3 MG Chewable n 81 {tabl ed MG ([facility] Tablet MG et} [facility] Care) Cholecalcif Cholec suspend Cholecal cife eCW3 carole [id number] [place] rol [id number] ([facility] UNT Oral rol UNIT [place] Capsule 06571 Health Cholecalcif UNIT Care) carole [id number] UNIT trospium Trospi 1.0 suspend Trospium eC W3 chloride 20 um {tabl ed Chloride 20 ([facility] MG Oral Chlori et_at MG [place] Tablet de 20 _bedt Health Trospium MG ime_o Care) Chloride 20 n_an_ MG empty _stom ach} Simvastatin Simvas suspend Simvasta tin eCW3 20 MG Oral tatin ed 20 MG ([facility] Tablet 20 MG [facility] Care) Ibuprofen IBUPRO 1.0 active IBUPROFEN e CW3 400 MG Oral FEN {tabl 400 MG ([facility] Tablet 400 MG et} [facility] IBUPROFEN Health 400 MG Care) Simvastatin Simvas suspend Simvasta tin eCW3 20 MG Oral tatin ed 20 MG ([facility] Tablet 20 MG [facility]) Pramipexole Pramip 1.0 suspend Pramipex ole eCW3 Dihydrochlo exole {tabl ed Dihydrochlo r ([facility] ride 0.5 MG Dihydr et} ludwig 0.5 MG [facility] ludwig Care) 0.5 MG Insurance Providers Payer name Policy type Policy ID Covered Covered democrat's Policy P jamison / Coverage democrat ID relationship to [place]avez Inf ormation type chavez MEDICAID [id number] SP [id number] MEDICARE [id number] SP [id number] 94 4 M [id number] 01 [id number] 94 4 W [id number] 01 [id number] M [id number] M MEDICAID [id number] SP [id number] MEDICAID [id number] SP [id number] MEDICARE [id number] SP [id number] 94 4 Problems, Conditions, and Diagnoses Code Display Name Description Problem Type Effective Data Dates Source(s) M25.512 Acute pain of left Acute pain of left Problem 0 eCW3 ([facility] shoulder shoulder 12:00:00 AM [facility]) R20.2 Paresthesia Paresthesia Problem 11/01/2019 eCW3 [facility] M25.552 Left hip pain Left hip pain Problem 11/01/2019 eCW3 (Hu dson 12:00:00 AM [facility]) E55.9 Vitamin D Vitamin D Problem 10/02/2019 eCW3 ([facility] deficiency [facility] N32.81 Overactive bladder Overactive bladder Problem 0 eCW3 ([facility] 12:00:00 AM [facility] EDT Care) E55.9 Vitamin D Vitamin D Problem 10/02/2019 eCW3 ([facility] deficiency deficiency 12:00:00 AM [facility] EDT Care) N32.81 Overactive bladder Overactive bladder Problem 0 eCW3 ([facility] 12:00:00 AM [facility] EDT Care) 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 06/21/2019 eCW3 ([facility] other mental other mental 12:00:00 AM [facility] lt disorder disorder EST Care) F99 Mental disorder, Mental disorder, Problem 06/21/2019 eC W3 ([facility] not otherwise not otherwise 12:00:00 AM [facility] specified specified EST Care) F99 Mental disorder, Mental disorder, Problem 06/21/2019 eC W3 ([facility] not otherwise not otherwise 12:00:00 AM [facility] specified specified EST Care) E66.9 Obesity (BMI Obesity (BMI Problem 02/12/2019 eCW3 ([facility] 30-39.9) 30-39.9) 12:00:00 AM [facility] EDT Care) E66.9 Obesity (BMI Obesity (BMI Problem 02/12/2019 eCW3 ([facility] 30-39.9) 30-39.9) 12:00:00 AM [facility] EDT Care) 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 11/05/2018 eCW3 ([facility] left hip, left hip, 12:00:00 AM [facility] unspecified unspecified EDT Care) osteoarthritis type osteoarthritis type 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 11/05/2018 eCW3 ([facility] left hip, left hip, 12:00:00 AM [facility] unspecified unspecified EDT Care) osteoarthritis type osteoarthritis type Z68.37 Body mass index Adult BMI 37.0-37.9 Problem 06/25/2018 eCW3 ([place] 35.00 to 39.99 kg/sq m 12:00:00 AM [facility] EST Care) E66.01 Morbid obesity Extreme obesity Problem 06/25/2018 eCW3 ([place] 12:00:00 AM [facility] EST Care) E66.01 Morbid obesity Extreme obesity Problem 06/25/2018 eCW3 ([place] 12:00:00 AM [facility] EST Care) Z68.37 Body mass index Adult BMI 37.0-37.9 Problem 06/25/2018 eCW3 ([place] 35.00 to 39.99 kg/sq m 12:00:00 AM [facility] EST Care) 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 Problem 04/03/2018 eCW3 ([place] right hip, right hip, 12:00:00 AM [facility] unspecified unspecified EST Care) osteoarthritis type osteoarthritis type 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 Problem 04/03/2018 eCW3 ([place] right hip, right hip, 12:00:00 AM [facility] unspecified unspecified EST Care) osteoarthritis type osteoarthritis type H54.7 Decreased vision Decreased vision Problem 06/16/2017 eC W3 ([place] 12:00:00 AM [facility] EST Care) E78.4 Hyperlipidemia Other Problem 06/16/2017 eCW3 ([place] hyperlipidemia 12:00:00 AM [facility] EST Care) H54.7 Decreased vision Decreased vision Problem 06/16/2017 eC W3 ([place] 12:00:00 AM [facility] EST Care) E78.4 Hyperlipidemia Other Problem 06/16/2017 eCW3 ([place] hyperlipidemia 12:00:00 AM [facility] EST Care) N95.1 Menopause Menopausal and Problem 03/16/2017 eCW3 ([place] female climacteric 12:00:00 AM [facility] EDT Care) 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, Problem 03/16/2017 e CW3 ([place] unspecified 12:00:00 AM [facility] EDT Care) I10 Essential Essential (primary) Problem 03/16/2017 eCW3 ([place] hypertension hypertension 12:00:00 AM [facility] EDT Care) I10 Essential Essential (primary) Problem 03/16/2017 eCW3 ([place] hypertension hypertension 12:00:00 AM [facility] EDT Care) N95.1 Menopause Menopausal and Problem 03/16/2017 eCW3 ([place] female climacteric 12:00:00 AM [facility] states EDT Care) 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, Problem 03/16/2017 e CW3 ([place] unspecified 12:00:00 AM [facility] EDT Care) M19.90 Osteoarthritis Osteoarthritis Problem 08/22/2016 eCW3 ( [place] 12:00:00 AM [facility] EDT Care) M19.90 Osteoarthritis Osteoarthritis Problem 08/22/2016 eCW3 ( [place] 12:00:00 AM [facility] EDT Care) M54.42 Lumbago with Lumbago with Problem 06/23/2016 eCW3 ([place] sciatica, left side sciatica, left side 12:00:0 0 AM [facility] EST Care) M16.12 Primary Primary Problem 06/23/2016 eCW3 ([place] osteoarthritis of osteoarthritis of 12:00:00 AM [facility] left hip left hip EST Care) M16.12 Primary Primary Problem 06/23/2016 eCW3 ([place] osteoarthritis of osteoarthritis of 12:00:00 AM [facility] left hip left hip EST Care) M54.42 Lumbago with Lumbago with Problem 06/23/2016 eCW3 ([place] sciatica, left side sciatica, left side 12:00:0 0 AM [facility] EST Care) G89.29 Other chronic pain Other chronic pain Problem 6 eCW3 ([place] 12:00:00 AM [facility] EDT Care) M54.40 Lumbago with Lumbago with Problem 03/09/2016 eCW3 ([place] sciatica, sciatica, 12:00:00 AM [facility] unspecified side unspecified side EDT Ca re) G89.29 Other chronic pain Other chronic pain Problem 6 eCW3 ([place] 12:00:00 AM [facility] EDT Care) M54.40 Lumbago with Lumbago with Problem 03/09/2016 eCW3 ([place] sciatica, sciatica, 12:00:00 AM [facility] unspecified side unspecified side EDT Ca re) R73.09 Prediabetes Prediabetes Problem 05/05/2015 eCW3 ([place] 12:00:00 AM [facility] EST Care) E78.5 Hyperlipidemia Hyperlipidemia Problem 05/05/2015 eCW3 ( [place] 12:00:00 AM [facility] EST Care) R73.09 Prediabetes Prediabetes Problem 05/05/2015 eCW3 ([place] 12:00:00 AM [facility] EST Care) E78.5 Hyperlipidemia Hyperlipidemia Problem 05/05/2015 eCW3 ( [place] 12:00:00 AM [facility]) I10 Essential (primary) ESSENTIAL (PRIMARY) Diagnosis 020 [facility] hypertension HYPERTENSION 06:52:00 AM Medical EDT Center N76.0 Acute vaginitis ACUTE VAGINITIS Diagnosis 02/04/2020 Martha Covarrubias 06:52:00 AM Medical EDT Center R30.0 Dysuria DYSURIA Diagnosis 02/04/2020 [facility] 06:52:00 AM Medical EDT Center R30.9 Painful PAINFUL Diagnosis 02/04/2020 [facility] micturition, MICTURITION, 06:52:00 AM Medical unspecified UNSPECIFIED EDT Center M54.16 Radiculopathy, RADICULOPATHY, Diagnosis 01/31/2020 [facility] lumbar region LUMBAR REGION 08:09:00 AM Medical EDT Center B37.2 Candidiasis of skin CANDIDIASIS OF SKIN Diagnosis 020 [facility] and nail AND NAIL 08:09:00 AM Medical EDT Center M25.562 Pain in left knee PAIN IN LEFT KNEE Diagnosis 01/20/2020 [facility] 01:48:00 PM Medical EDT Center M25.561 Pain in right knee PAIN IN RIGHT KNEE Diagnosis 0 [facility] 01:48:00 PM Medical EDT Center M25.552 Pain in left hip PAIN IN LEFT HIP Diagnosis 01/20/2020 Sa darrick Covarrubias 01:48:00 PM Medical EDT Center M16.12 Unilateral primary UNILATERAL PRIMARY Diagnosis 0 [facility] osteoarthritis, OSTEOARTHRITIS, 08:16:00 AM Med ical left hip LEFT HIP EDT Center M19.012 Primary PRIMARY Diagnosis 11/29/2019 [facility] osteoarthritis, OSTEOARTHRITIS, 08:16:00 AM Med ical left shoulder LEFT SHOULDER EDT Center G62.9 Polyneuropathy, POLYNEUROPATHY, Diagnosis 11/29/2019 Martha Covarrubias unspecified UNSPECIFIED 08:16:00 AM Medical EDT Center R20.0 Anesthesia of skin ANESTHESIA OF SKIN Diagnosis 0 [facility] 08:16:00 AM Medical EDT Center G89.29 Other chronic pain OTHER CHRONIC PAIN Diagnosis 0 [facility] 11:01:00 AM Medical EDT Center M25.559 Pain in unspecified PAIN IN UNSPECIFIED Diagnosis 020 [facility] hip HIP 11:01:00 AM Medical EDT Center E11.9 Type 2 diabetes TYPE 2 DIABETES Diagnosis 05/04/2019 Martha Covarrubias mellitus without MELLITUS WITHOUT 01:53:00 PM edical complications COMPLICATIONS EST Center R42 Dizziness and DIZZINESS AND Diagnosis 05/04/2019 [facility] giddiness GIDDINESS 01:53:00 PM Medical EST Center M79.661 Pain in right lower PAIN IN RIGHT LOWER Diagnosis 019 [facility] leg LEG 06:58:00 AM Medical EDT Center M79.662 Pain in left lower PAIN IN LEFT LOWER Diagnosis 9 [facility] leg LEG 06:58:00 AM Medical EDT Center M79.669 Pain in unspecified PAIN IN UNSPECIFIED Diagnosis 019 [facility] lower leg LOWER LEG 06:58:00 AM Medical EDT Center Results ID Date Data Source Urinalysis.[id number] 02/04/2020 07:50:00 AM EDT [facility] 0 Name Value Range Interpretation Description Data Sup porting Code Source(s) Document(s ) UNK CLEAR <content [facility] styleCode="[facility] Clemonss d">Urine Medical Clarity Center </content>JEOVANNY R <content styleCode="Cheri lics"> (CLEAR )</content> Color of Urine YELLOW <content [facility] styleCode="[facility] d">Color, Medical Urine Center </content>YELL OW <content styleCode="Cheri lics"> (YELLOW )</content> Glucose NEGATIVE <content [facility] [Mass/volume] styleCode="Ross Covarrubias in Urine by d">Urine Medical Test strip Glucose Center </content>NEGA TIVE MG/DL<content styleCode="Cheri lics"> (NEGATIVE MG/DL)</conten t> Specific 1.015-1.02 <content [facility] gravity of 5 styleCode="Ross Covarrubias Urine by Test d">Urine Medical strip Specific Center [place] </content>1.02 5 <content styleCode="Cheri lics"> (1.015-1.025 )</content> Ketones NEGATIVE <content [facility] [Mass/volume] styleCode="[facility] Clemonss in Urine by d">Urine Medical Test strip Ketone Center </content>NEGA TIVE MG/DL<content styleCode="Cheri lics"> (NEGATIVE MG/DL)</conten t> UNK NEGATIVE <content [facility] styleCode="[facility] d">Urine Medical Bilirubin Center </content>NEGA TIVE <content styleCode="Cheri lics"> (NEGATIVE )</content> Urobilinogen 0.2-1.0 <content [facility] [Units/volume] styleCode="[facility] Clemonss in Urine by d">Urine Medical Test strip Urobilinogen Center </content>0.2 MG/DL<content styleCode="Cheri lics"> (0.2-1.0 MG/DL)</conten t> pH of Urine by 4.5-8.0 <content [facility] Test strip styleCode="[facility] Clemonss d">Urine pH Medical </content>6.0 Center <content styleCode="Cheri lics"> (4.5-8.0 )</content> Protein NEGATIVE <content [facility] [Mass/volume] styleCode="[facility] Clemons[facility] in Urine by d">Urine Medical Test strip Protein Center </content>NEGA TIVE MG/DL<content styleCode="Cheri lics"> (NEGATIVE MG/DL)</conten t> Hemoglobin NEGATIVE <content [facility] [Presence] in styleCode="Ross Covarrubias Urine by Test d">Urine Blood Medical strip </content>NEGA Center TIVE <content styleCode="Cheri lics"> (NEGATIVE )</content> Leukocyte NEGATIVE <content [facility] esterase styleCode="[facility] Clemonss [Presence] in d">Urine Medical Urine by Test Leukocyte Center strip </content>NEGA TIVE <content styleCode="Cheri lics"> (NEGATIVE )</content> Nitrite NEGATIVE <content [facility] [Presence] in styleCode="[facility] Clemonss Urine by Test d">Urine Medical strip Nitrite Center </content>NEGA TIVE <content styleCode="Cheri lics"> (NEGATIVE )</content> ID Date Data Source [id number] 09/18/2019 12:00:00 AM EDT [facility] Name Value Range Interpretation Code Description Data Carolina rce(s) Supporting Document(s ) [facility] XXX LATRICE+probe- Imp This lab was ordered by [employer] IKAREEM [id number] and reported by [employer]. ID Date Data Source Liver 05/04/2019 04:08:00 PM EST [facility] Profile.[id number] Name Value Range Interpretation Description Data Sup porting Code Source(s) Document(s ) Alanine 7-30 <content [facility] aminotransferase styleCode="Bold"> Shmuel hs [Enzymatic Alanine Medical activity/volume] Aminotransferase Center in Serum or Plasma (ALT) </content>14 IU/L<content styleCode="Italic s"> (7-30 IU/L)</content> Alkaline 38-126 <content [facility] phosphatase styleCode="Bold"> Marci [Enzymatic Alkaline Medical activity/volume] Phosphatase (ALP) Cente r in Serum or Plasma </content>82 IU/L<content styleCode="Italic s"> (38-126 IU/L)</content> Aspartate 14-36 <content [facility] aminotransferase styleCode="Bold"> Shmuel hs [Enzymatic Aspartate Medical activity/volume] Aminotransferase Center in Serum or Plasma (AST) </content>26 IU/L<content styleCode="Italic s"> (14-36 IU/L)</content> UNK 0.0-0.3 <content [facility] styleCode="Bold"> Macri Bilirubin, Direct Medical </content>< 0.2 Center MG/DL<content styleCode="Italic s"> (0.0-0.3 MG/DL)</content> Bilirubin.total 0.2-1.3 <content [facility] [Mass/volume] in styleCode="Bold"> Shmuel hs Serum or Plasma Bilirubin Total Medical </content>0.5 Center MG/DL<content styleCode="Italic s"> (0.2-1.3 MG/DL)</content> Albumin 3.5-5.0 <content [facility] [Mass/volume] in styleCode="Bold"> Shmuel hs Serum or Plasma Albumin Medical </content>3.9 Center G/DL<content styleCode="Italic s"> (3.5-5.0 G/DL)</content> ID Date Data Source HematologyRou.[id number] 05/04/2019 04:08:00 PM REGI [facility] 0500 Name Value Range Interpretation Description Data Sup porting Code Source(s) Document(s ) Erythrocytes 4.0-5.1 <content [facility] [#/volume] in styleCode="Bold Marci Blood by ">Red Blood Medical Automated count Cell Count Center </content>4.17 MCUMM<content styleCode="Ital ics"> (4.0-5.1 MCUMM)</content > Hemoglobin 12.3-16. <content [facility] [Mass/volume] in 0 styleCode="Bold [facility] Blood ">Hemoglobin Medical </content>13.7 Center G/DL<content styleCode="Ital ics"> (12.3-16.0 G/DL)</content> Leukocytes 4.4-11.0 <content [facility] [#/volume] in styleCode="Bold [facility] Blood by ">White Blood Medical Automated count Cell Count Center </content>7.64 KCUMM<content styleCode="Ital ics"> (4.4-11.0 KCUMM)</content > Erythrocyte mean 80.0-100 <content [facility] corpuscular .0 styleCode="Bold [facility]ci volume [Entitic ">Mean Medical volume] by Corpuscular Center Automated count Volume </content>97.4 FL<content styleCode="Ital ics"> (80.0-100.0 FL)</content> Erythrocyte mean 26.0-34. <content [facility] corpuscular 0 styleCode="Bold [facility] hemoglobin ">Mean Medical [Entitic mass] Corposcular Center by Automated Hemoglobin count </content>32.9 PG<content styleCode="Ital ics"> (26.0-34.0 PG)</content> Hematocrit 36.0-46. <content Saint [Volume 0 styleCode="Bold Marci Fraction] of ">Hematocrit Medical Blood by </content>40.6 Center Automated count %<content styleCode="Ital ics"> (36.0-46.0 %)</content> Erythrocyte mean 32.0-37. <content [facility] corpuscular 0 styleCode="Bold [facility] hemoglobin ">Mean Corpus. Medical concentration Hgb Center [Mass/volume] by Concentration Automated count (MCHC) </content>33.7 G/DL<content styleCode="Ital ics"> (32.0-37.0 G/DL)</content> Erythrocyte 11.5-14. <content [facility] distribution 5 styleCode="Bold [facility] width [Ratio] by ">Red Cell Medical Automated count Distribution Center Width </content>13.8 %<content styleCode="Ital ics"> (11.5-14.5 %)</content> Platelet mean 8.0-11.0 <content [facility] volume [Entitic styleCode="Bold [facility] volume] in Blood ">Mean Platelet Medical by Automated Volume Center count </content>10.8 FL<content styleCode="Ital ics"> (8.0-11.0 FL)</content> Platelets 130-400 <content Saint [#/volume] in styleCode="Bold [facility] Blood by ">Platelet Medical Automated count Count Center </content>222 KCUMM<content styleCode="Ital ics"> (130-400 KCUMM)</content > Neutrophils 36-66 Above high <content Saint [#/volume] in normal styleCode="Bold [facility] Blood by ">Neutrophil Medical Automated count </content>73.8 Center % H<content styleCode="Ital ics"> (36-66 %)</content> Lymphocytes 24.0-44. Below low normal <content Saint [#/volume] in 0 styleCode="Bold [facility] Blood by ">Lymphocyte Medical Automated count </content>15.7 Center % L<content styleCode="Ital ics"> (24.0-44.0 %)</content> UNK 1.6-7.3 <content [facility] styleCode="Bold [facility] ">Neutrophil Medical Count Center </content>5.64 KCUMM<content styleCode="Ital ics"> (1.6-7.3 KCUMM)</content > UNK 1.0-4.8 <content [facility] styleCode="Bold Mar[facility] ">Lymphocyte Medical Count Center </content>1.20 KCUMM<content styleCode="Ital ics"> (1.0-4.8 KCUMM)</content > UNK 0.2-0.9 <content [facility] styleCode="Bold Mar[facility] ">Monocyte Medical Count Center </content>0.59 KCUMM<content styleCode="Ital ics"> (0.2-0.9 KCUMM)</content > Monocytes 3.0-10.0 <content Saint [#/volume] in styleCode="Bold [facility] Blood by ">Monocyte Medical Automated count </content>7.7 Center %<content styleCode="Ital ics"> (3.0-10.0 %)</content> Eosinophils 0-5.0 <content Saint [#/volume] in styleCode="Bold [facility] Blood by ">Eosinophil Medical Automated count </content>1.6 Center %<content styleCode="Ital ics"> (0-5.0 %)</content> UNK 0.0-0.6 <content [facility] styleCode="Bold [facility]ci ">Eosinophil Medical Count Center </content>0.12 KCUMM<content styleCode="Ital ics"> (0.0-0.6 KCUMM)</content > UNK 0 <content Saint styleCode="Bold [facility] ">Nucleated Red Medical Blood Cell Center </content>0.0 /100<content styleCode="Ital ics"> (0 /100)</content> UNK 0.0-0.3 <content [facility] styleCode="Bold Marci ">Basophil Medical Count Center </content>0.06 KCUMM<content styleCode="Ital ics"> (0.0-0.3 KCUMM)</content > Basophils 0.0-1.0 <content Saint [#/volume] in styleCode="Bold [facility] Blood by ">Basophil Medical Automated count </content>0.8 Center %<content styleCode="Ital ics"> (0.0-1.0 %)</content> UNK 0-0.1 <content styleCode="Bold Marci ">Immature Medical Granulocyte Center Count </content>0.03 KCUMM<content styleCode="Ital ics"> (0-0.1 KCUMM)</content > UNK < 1 <content [facility] styleCode="Bold Marci ">Immature Medical Granulocyte Center Ratio </content>0.4 %<content styleCode="Ital ics"> (< 1 %)</content> UNK 0.0 <content styleCode="Bold [facility] ">Nucleated Red Medical Blood Cell Center Count </content>0.00 KCUMM<content styleCode="Ital ics"> (0.0 KCUMM)</content > ID Date Data Source GFR(Creatinine).[id number] 05/04/2019 04:08:00 PM EST [facility] 0-0500 Name Value Range Interpretation Code Description Data Carolina rce(s) Supporting Document(s ) UNK > 60 <content [facility] styleCode="Bold"> Medical Cent er EGFR </content>124 GFR<content styleCode="Italic s"> (> 60 GFR)</content> ID Date Data Source Coagulation 05/04/2019 04:08:00 PM [facility] ical Center Rout.[id number] EST Name Value Range Interpretation Description Data Sup porting Code Source(s) Document(s ) INR in 0.80-1.2 <content [facility] Platelet poor 0 styleCode="Bold" [facility] plasma by >INR Medical Coagulation </content>1.04 Center assay #<content styleCode="Itali cs"> (0.80-1.20 #)</content> UNK 9.0-13.0 <content styleCode="Bold" Marci >Protime Medical </content>11.5 Center SEC<content styleCode="Itali cs"> (9.0-13.0 SEC)</content> aPTT in 25.1-36. <content [facility] Platelet poor 5 styleCode="Bold" [facility] plasma by >Partial Medical Coagulation Thromboplastin Center assay Time </content>31.5 SEC<content styleCode="Itali cs"> (25.1-36.5 SEC)</content> ID Date Data Source SUNSHINE.[id number] 05/04/2019 04:08:00 PM EST [facility] -0500 Name Value Range Interpretation Description Data Sup porting Code Source(s) Document(s ) Natriuretic < 450 <content [facility] peptide.B styleCode="Ross [facility]ci prohormone d">NT Pro BNP Medical N-Terminal </content>298 Center [Mass/volume] PG/ML<content in Serum or styleCode="Cheri Plasma lics"> (< 450 PG/ML)</conten t> ID Date Data Source CardiacMarkers.[id number] 05/04/2019 04:08:00 PM [facility] -0500 Name Value Range Interpretation Description Data Sup porting Code Source(s) Document(s ) Troponin < 0.034 <content Saint I.cardiac styleCode="Bold Marci [Mass/volume ">Troponin I Medical ] in Serum </content>< Center or Plasma 0.012 NG/ML<content styleCode="Ital ics"> (< 0.034 NG/ML)</content > Creatine 30-135 <content [facility] kinase styleCode="Bold Marci [Enzymatic ">CK Medical activity/vol </content>92 Center ume] in IU/L<content Serum or styleCode="Ital Plasma ics"> (30-135 IU/L)</content> ID Date Data Source [facility].[id number] 05/04/2019 04:08:00 PM [facility] Name Value Range Interpretation Description Data Sup porting Code Source(s) Document(s ) Potassium 3.5-5.3 <content Saint [Moles/volume] in styleCode="Bold"> Naveed phs Serum or Plasma Potassium Medical </content>4.6 Center MEQ/L<content styleCode="Italic s"> (3.5-5.3 MEQ/L)</content> Chloride 98-107 <content [facility] [Moles/volume] in styleCode="Bold"> Naveed phs Serum or Plasma Chloride Medical </content>103 Center MEQ/L<content styleCode="Italic s"> (98-107 MEQ/L)</content> Sodium 137-145 Below low <content [facility] [Moles/volume] in normal styleCode="Bold"> Naveed phs Serum or Plasma Sodium Medical </content>135 Center MEQ/L L<content styleCode="Italic s"> (137-145 MEQ/L)</content> Creatinine 0.5-1.3 <content [facility] [Mass/volume] in styleCode="Bold"> Shmuel hs Serum or Plasma Creatinine Medical </content>0.5 Center MG/DL<content styleCode="Italic s"> (0.5-1.3 MG/DL)</content> Glucose 74-106 Above high <content Saint [Mass/volume] in normal styleCode="Bold"> Shmuel hs Serum or Plasma Glucose Medical </content>108 Center MG/DL H<content styleCode="Italic s"> (74-106 MG/DL)</content> Carbon dioxide, 22-30 <content Saint total styleCode="Bold"> [facility] [Moles/volume] in Carbon Dioxide Medical Serum or Plasma </content>25 Center MEQ/L<content styleCode="Italic s"> (22-30 MEQ/L)</content> Calcium 8.4-10. <content [facility] [Mass/volume] in 2 styleCode="Bold"> Shmuel hs Serum or Plasma Calcium Medical </content>9.7 Center MG/DL<content styleCode="Italic s"> (8.4-10.2 MG/DL)</content> UNK 7-17 <content Saint styleCode="Bold"> [facility] BUN </content>17 Medical MG/DL<content Center styleCode="Italic s"> (7-17 MG/DL)</content> Aspartate 14-36 <content [facility] aminotransferase styleCode="Bold"> Shmuel hs [Enzymatic Aspartate Medical activity/volume] Aminotransferase Center in Serum or Plasma (AST) </content>26 IU/L<content styleCode="Italic s"> (14-36 IU/L)</content> Alkaline 38-126 <content [facility] phosphatase styleCode="Bold"> Marci [Enzymatic Alkaline Medical activity/volume] Phosphatase (ALP) Cente r in Serum or Plasma </content>82 IU/L<content styleCode="Italic s"> (38-126 IU/L)</content> UNK > 60 <content [facility] styleCode="Bold"> [facility] EGFR Medical </content>124 Center GFR<content styleCode="Italic s"> (> 60 GFR)</content> Alanine 7-30 <content [facility] aminotransferase styleCode="Bold"> Shmuel hs [Enzymatic Alanine Medical activity/volume] Aminotransferase Center in Serum or Plasma (ALT) </content>14 IU/L<content styleCode="Italic s"> (7-30 IU/L)</content> Bilirubin.total 0.2-1.3 <content [facility] [Mass/volume] in styleCode="Bold"> Shmuel hs Serum or Plasma Bilirubin Total Medical </content>0.5 Center MG/DL<content styleCode="Italic s"> (0.2-1.3 MG/DL)</content> Albumin 3.5-5.0 <content [facility] [Mass/volume] in styleCode="Bold"> Shmuel hs Serum or Plasma Albumin Medical </content>3.9 Center G/DL<content styleCode="Italic s"> (3.5-5.0 G/DL)</content> ID Date Data Source Urinalysis.[id number] 05/04/2019 04:05:00 PM EST [facility] nt [facility] 0 Name Value Range Interpretation Description Data Sup porting Code Source(s) Document(s ) Glucose NEGATIVE <content Saint [Mass/volume] styleCode="Ross Covarrubias in Urine by d">Urine Medical Test strip Glucose Center </content>NEGA TIVE MG/DL<content styleCode="Cheri lics"> (NEGATIVE MG/DL)</conten t> UNK CLEAR <content Saint styleCode="Ross Covarrubias d">Urine Medical Clarity Center </content>JEOVANNY R <content styleCode="Cheri lics"> (CLEAR )</content> Color of Urine YELLOW <content Saint styleCode="Ross Marci d">Color, Medical Urine Center </content>YELL OW <content styleCode="Cheri lics"> (YELLOW )</content> UNK NEGATIVE <content Saint styleCode="Ross Marci d">Urine Medical Bilirubin Center </content>NEGA TIVE <content styleCode="Cheri lics"> (NEGATIVE )</content> Specific 1.015-1.02 <content Saint gravity of 5 styleCode="Ross Clemonss Urine by Test d">Urine Medical strip Specific Center [place] </content>1.01 5 <content styleCode="Cheri lics"> (1.015-1.025 )</content> Ketones NEGATIVE <content Saint [Mass/volume] styleCode="Ross Clemonss in Urine by d">Urine Medical Test strip Ketone Center </content>NEGA TIVE MG/DL<content styleCode="Cheri lics"> (NEGATIVE MG/DL)</conten t> Protein NEGATIVE <content Saint [Mass/volume] styleCode="Ross Marci in Urine by d">Urine Medical Test strip Protein Center </content>NEGA TIVE MG/DL<content styleCode="Cheri lics"> (NEGATIVE MG/DL)</conten t> Hemoglobin NEGATIVE <content Saint [Presence] in styleCode="Ross Clemonss Urine by Test d">Urine Blood Medical strip </content>NEGA Center TIVE <content styleCode="Cheri lics"> (NEGATIVE )</content> pH of Urine by 4.5-8.0 <content Saint Test strip styleCode="Ross Marci d">Urine pH Medical </content>7.0 Center <content styleCode="Cheri lics"> (4.5-8.0 )</content> Nitrite NEGATIVE <content Saint [Presence] in styleCode="Ross Marci Urine by Test d">Urine Medical strip Nitrite Center </content>NEGA TIVE <content styleCode="Cheri lics"> (NEGATIVE )</content> Leukocyte NEGATIVE <content [facility] esterase styleCode="Ross Marci [Presence] in d">Urine Medical Urine by Test Leukocyte Center strip </content>NEGA TIVE <content styleCode="Cheri lics"> (NEGATIVE )</content> Urobilinogen 0.2-1.0 <content Saint [Units/volume] styleCode="Ross Marci in Urine by d">Urine Medical Test strip Urobilinogen Center </content>0.2 MG/DL<content styleCode="Cheri lics"> (0.2-1.0 MG/DL)</conten t> Procedure Social History Code Duration Value Status Description Data Source(s ) Smoking 02/04/2020 Denies Ever completed Denies Ever Smoked [facility] 07:46:00 AM EDT Smoked Medical C enter Smoking 02/04/2020 Denies Ever completed Denies Ever Smoked [facility] 07:29:00 AM EDT Smoked Medical C enter Smoking 02/04/2020 Denies Ever completed Denies Ever Smoked [facility] 07:25:00 AM EDT Smoked Medical C enter Smoking 01/31/2020 Denies Ever completed Denies Ever Smoked [facility] 08:32:00 AM EDT Smoked Medical C enter Smoking 01/31/2020 Denies Ever completed Denies Ever Smoked [facility] 08:25:00 AM EDT Smoked [facility] enter Smoking 11/29/2019 Denies Ever completed Denies Ever Smoked [facility] 10:14:00 AM EDT Smoked [facility] enter Smoking 11/29/2019 Denies Ever completed Denies Ever Smoked [facility] 08:25:00 AM EDT Smoked [facility] enter Smoking 09/10/2019 Denies Ever completed Denies Ever Smoked [facility] 02:51:00 PM EDT Smoked Medical C enter Smoking 09/10/2019 Denies Ever completed Denies Ever Smoked [facility] 02:50:00 PM EDT Smoked [facility] enter Smoking 09/10/2019 Denies Ever completed Denies Ever Smoked [facility] 01:12:00 PM EDT Smoked [facility] enter Smoking 05/04/2019 Denies Ever completed Denies Ever Smoked [facility] 03:00:00 PM EST Sm[facility] enter Smoking 05/04/2019 Denies Ever completed Denies Ever Smoked [facility] 02:12:00 PM EST Smoked [facility] enter Smoking 05/04/2019 Denies Ever completed Denies Ever Smoked [facility] 02:05:00 PM EST [facility] enter Smoking 10/01/2018 Denies Ever completed Denies Ever Smoked [facility] 07:38:00 AM EDT Smoked Medical C enter Smoking 10/01/2018 Denies Ever completed Denies Ever Smoked [facility] 07:35:00 AM EDT Smoked Medical C enter Smoking 10/01/2018 Denies Ever completed Denies Ever Smoked [facility] 07:01:00 AM EDT Smoked Medical C enter Smoking Unknown if ever completed Unknown if ever [facility] smoked smoked [facility] Smoking Unknown if ever completed Unknown if ever eCW3 ([facility] smoked smoked [facility]) Smoking Unknown if ever completed Unknown if ever eCW3 ([facility] smoked smoked [facility]) Smoking Unknown if ever completed Unknown if ever eCW3 ([facility] smoked smoked [facility]) Smoking Unknown if ever completed Unknown if ever eCW3 ([facility] smoked smoked [facility]) Vital Signs ID Date Data Source UNK Name Value Range Interpretation Code Description Data Source(s) Body temperature 37.553538 37.899531 [facility] Respiratory rate 18 /min 18 /min [facility] Oxygen saturation 98 % 98 % [facility]ph[facility] in Arterial blood [facility] by Pulse oximetry Heart rate 80 /min 80 /min [facility] Diastolic blood 90 mm[Hg] 90 mm[Hg] [facility] pressure [facility] Systolic blood 186 mm[Hg] 186 mm[Hg] [facility] pressure Medical Center Body weight 81.838156 kg 81.126851 kg [facility] Measured [facility] Body temperature 36.079557 36.953984 [facility] Respiratory rate 19 /min 19 /min [facility] Oxygen saturation 96 % 96 % [facility] Renuka osephs in Arterial [facility] [address] [facility] by Pulse oximetry Heart rate 81 /min 81 /min [facility] Body height 149.930780 149.326867 cm [facility] Medical [place] Diastolic blood 89 mm[Hg] 89 mm[Hg] [facility] pressure Medical Center Systolic blood 179 mm[Hg] 179 mm[Hg] [facility] pressure Medical Center Body mass index 36.3 kg/m2 36.3 kg/m2 [facility] (BMI) [Ratio] Medical [address] Body weight 75.526486 kg 75.897683 kg [facility] Measured [facility] Body temperature 36.698121 36.763053 [facility] Respiratory rate 18 /min 18 /min [facility] Oxygen saturation 96 % 96 % [facility] in Arterial blood [facility] by Pulse oximetry Heart rate 84 /min 84 /min [facility] Body height 147.949999 147.132606 cm [facility] Diastolic blood 84 mm[Hg] 84 mm[Hg] [facility] pressure Medical Center Systolic blood 169 mm[Hg] 169 mm[Hg] [facility] Body mass index 34.9 kg/m2 34.9 kg/m2 [facility] (BMI) [Ratio] Medical [facility] ter Body temperature 36.427374 36.752918 [facility] Respiratory rate 18 /min 18 /min [facility] Oxygen saturation 98 % 98 % [facility] in Arterial blood [facility] by Pulse oximetry Heart rate 85 /min 85 /min [facility] Diastolic blood 84 mm[Hg] 84 mm[Hg] [facility] Systolic blood 146 mm[Hg] 146 mm[Hg] [facility] Oxygen saturation 98 % 98 % [facility] in [facility] blood [facility] by Pulse oximetry Heart rate 89 /min 89 /min [facility] Diastolic blood 82 mm[Hg] 82 mm[Hg] [facility] Systolic blood 158 mm[Hg] 158 mm[Hg] [facility] Body temperature 36.894842 36.577868 [facility] Respiratory rate 18 /min 18 /min [facility] Body weight 81.507177 kg 81.952896 kg [facility] Body temperature 36.055696 36.535991 [facility] Respiratory rate 16 /min 16 /min [facility] Oxygen saturation 99 % 99 % [facility] in [facility] blood [facility] by Pulse oximetry Heart rate 91 /min 91 /min [facility] Body height 152.730575 152.841322 cm [facility] Medical [place] Diastolic blood 88 mm[Hg] 88 mm[Hg] [facility] Center Systolic blood 138 mm[Hg] 138 mm[Hg] [facility] pressure [facility] Body mass index 35.1 kg/m2 35.1 kg/m2 [facility] (BMI) [Ratio] Medical [address] Body temperature 36.525153 36.058485 [facility] Respiratory rate 18 /min 18 /min [facility] Oxygen saturation 98 % 98 % [facility] nichole in Arterial blood Medical Center by Pulse oximetry Heart rate 79 /min 79 /min [facility] Diastolic blood 71 mm[Hg] 71 mm[Hg] [facility] pressure [facility] Systolic blood 131 mm[Hg] 131 mm[Hg] [facility] pressure [facility] Diastolic blood 65 mm[Hg] 65 mm[Hg] eCW3 ([facility]) Systolic blood 111 mm[Hg] 111 mm[Hg] eCW3 ([facility]) Body temperature 98.1 [degF] 98.1 [degF] eCW3 ( [facility]) Heart rate 18 /min 18 /min eCW3 ([facility]) Body mass index 39.81 kg/m2 39.81 kg/m2 eCW3 ([facility] (BMI) [Ratio] [facility]) Body weight 184.0 184.0 [lb_av] eCW3 ([facility] [lb_av] [facility]) Body height 57.0 [in_i] 57.0 [in_i] eCW3 ([facility]) Diastolic blood 80 mm[Hg] 80 mm[Hg] eCW3 ([facility]) Systolic blood 136 mm[Hg] 136 mm[Hg] eCW3 ([facility]) Body temperature 98.7 [degF] 98.7 [degF] eCW3 ( [facility]) Heart rate 20 /min 20 /min eCW3 ([facility]) Body weight [lb_av] eCW3 ([facility]) Body height 57.25 [in_i] 57.25 [in_i] eCW3 ([facility]) Diastolic blood 80 mm[Hg] 80 mm[Hg] eCW3 ([facility]) Systolic blood 154 mm[Hg] 154 mm[Hg] eCW3 ([facility]) Body temperature 98.2 [degF] 98.2 [degF] eCW3 ( [facility]) Heart rate 20 /min 20 /min eCW3 ([facility]) Body mass index 39.04 kg/m2 39.04 kg/m2 eCW3 ([facility] (BMI) [Ratio] [facility]) Body weight 182 [lb_av] 182 [lb_av] eCW3 ([facility]) Body height 57.25 [in_i] 57.25 [in_i] eCW3 ([facility]) Body temperature 36.778181 36.217810 [facility] Respiratory rate 18 /min 18 /min [facility] Oxygen saturation 97 % 97 % [facility] in Arterial blood [facility] by Pulse oximetry Heart rate 77 /min 77 /min [facility] Diastolic blood 86 mm[Hg] 86 mm[Hg] [facility] Systolic blood 144 mm[Hg] 144 mm[Hg] [facility] Body temperature 36.632138 36.066881 [facility] Respiratory rate 17 /min 17 /min [facility] Oxygen saturation 96 % 96 % [facility] in Arterial blood [facility] by Pulse oximetry Heart rate 88 /min 88 /min [facility] Diastolic blood 78 mm[Hg] 78 mm[Hg] [facility] Systolic blood 128 mm[Hg] 128 mm[Hg] [facility] Patient Treatment Plan of Care Planned Activity Planned Date Details Description Data Source (s) Vitamin B 12 0.05 MG Oral 10/02/2019 12:00:00 eCW3 ([facility] Tablet [facility]) Vitamin B 12 0.05 MG Oral 10/02/2019 12:00:00 eCW3 ([facility]) miconazole nitrate [facility] (Monistat 1 Combo Pack) Cent er 1,200 mg-2 % Kit, Ordered By: SHARONDA Ramosirections: 1.5 mL per vagina twice a day Ketorolac Tromethamine 10 Sa int [facility] MG Oral Tablet Center Fluconazole 100 MG Oral [facility] Tablet Center Trazodone Hydrochloride eCW3 ([facility] 50 MG Oral Tablet Health Car e) gabapentin 100 MG Oral [facility] Vitamin D 50 MCG (1999 eCW3 ([facility]) Ibuprofen 400 MG Oral eCW3 ( [facility]) trospium chloride 20 MG eCW3 ([facility] Oral Tablet [facility]) Vitamin D 50 MCG (1999 eCW3 ([facility]) Ibuprofen 400 MG Oral eCW3 ( [facility]) trospium chloride 20 MG eCW3 ([facility]t [facility]) Ibuprofen 400 MG Oral [facility]
--- NOTE | 2020-02-20 08:22 | PDOC ---
Attending Attestation - Resident Resident Name: Jenaro Rasmussen - HPI HPI: 02/27/20 11:32 Pt presents to the ED complaining of suprapubic pain, dysuria, and urinary frequency. Denies fevers. Complains of nausea without vomiting. Also feels that she is incompletely emptying her bladder. Was seen by outside ED and treated with macrobid without relief. 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 Presents to the ED because symptoms have persisted despite treatment. - Physicial Exam PE: 02/27/20 12:06 Agree with resident exam. PAtient is alert and oriented and in no acute distress. Abdomen is soft, non tender, non distended, no guarding or rebound. - Medical Decision Making 02/27/20 12:23 Pt presents to the ED complaining of suprapubic pain and dysuria. Labs are consistent with UTI. Pelvic exam and bladder ultrasound are normal. Will discharge home with instructions to return to the ED for worsening symptoms. Discharge - Discharge Information Problems reviewed: Yes Clinical Impression/Diagnosis: Dysuria Condition: Good Disposition: HOME - Additional Discharge Information Prescriptions: Amoxicillin/Potassium Clav [Augmentin 500-125 Tablet] 1 each PO BID 10 Days #20 tablet Phenazopyridine HCl [Pyridium] 200 mg PO TID 2 Days #6 tablet - Follow up/Referral - Patient Discharge Instructions Patient Printed Discharge Instructions: DI for Urinary Tract Infection (UTI) Additional Instructions: Usted fue evaluada por dolor urinario. Romo orine muestra signos de infeccion, tome a romo antibiotico dos veces al eleni, por 10 greene. Ve a romo doctor de cabezera lo mas pronto posible, in 4-5 greene. Regresa a la edvin de urgencias si empiezas a tener fiebres altas, nauseas y vomitos, dolor de pecho, o dificultad respirando. Print Language: NIGERIEN - Post Discharge Activity
--- NOTE | 2020-02-20 08:32 | PDOC ---
History of Present Illness - General Chief Complaint: Urinary Problem Stated Complaint: VAGINAL PAIN Time Seen by Provider: 02/20/20 08:06 History Source: Patient - History of Present Illness Initial Comments: 02/20/20 09:08 89F w/hx HTN p/w 7 days of ongoing dysuria, suprapubic pain. She reports [facility] when symptoms began and being prescribed macrobid. 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 During that visit a vaginal wall lesion was noted on pelvic exam and biopsy taken, results pending. She was prescribed hormonal creams at that time. She reports ongoing dysuria since then, and reports only passing small amounts of urine at a time due to the dysuria. She denies fevers, chills, sob, chest pain, hematuria, or vaginal discharge or bleeding. Past History - Medical History Allergies/Adverse Reactions: Allergies Allergy/AdvReac Type Severity Reaction Status Date / Time Penicillins Allergy Unknown Verified 02/20/20 07:44 Home Medications: Ambulatory Orders Bupropion HCl [Bupropion Xl] 150 mg PO DAILY 07/24/19 Cholecalciferol (Vitamin D3) [Vitamin D3] 50,000 unit PO WEEKLY 07/24/19 Docusate Sodium [Colace -] 100 mg PO BID #60 capsule 07/24/19 Enalapril Maleate 2.5 mg PO DAILY 07/24/19 Mineral Oil Enema [Fleet Mineral Oil Rectal Enema -] 133 ml NR ONCE #7 enema 07/24/19 Polyethylene Glycol 3350 [Miralax (For Bowel Prep) -] 17 gm PO DAILY #1 bottle 07/24/19 Trospium Chloride [Trospium Chloride ER] 20 mg PO BID 07/24/19 Amoxicillin/Potassium Clav [Augmentin 500-125 Tablet] 1 each PO BID 10 Days #20 tablet 02/20/20 Phenazopyridine HCl [Pyridium] 200 mg PO TID 2 Days #6 tablet 02/20/20 Anemia: No Asthma: No Cancer: No Cardiac Disorders: No CVA: No COPD: No CHF: No DVT: No Dementia: No Diabetes: No GI Disorders: No Disorders: No HTN: Yes Hypercholesterolemia: No Liver Disease: No Seizures: No Thyroid Disease: No - Surgical History Abdominal Surgery: Yes Appendectomy: Yes Cardiac Surgery: No Cholecystectomy: Yes Lung Surgery: No Neurologic Surgery: No Orthopedic Surgery: No - Immunization History Immunization Up to Date: Yes - Psycho-Social/Smoking History Smoking Status: No Smoking History: Never smoked Have you smoked in the past 12 months: No Number of Cigarettes Smoked Daily: 0 - Substance Abuse Hx (Audit-C & DAST Scrn) How often the patient has a drink containing alcohol: Never Score: In Men: 4 or > Positive; In Women: 3 or > Positive: 0 Screen Result (Pos requires Nsg. Audit-10AR): Negative In the last yr the pt used illegal drug/Rx for NonMed reason: No Score: Yes response is considered Positive: 0 Screen Result (Positive result requires Nsg. DAST-10): Negative Review of Systems - Review of Systems Able to Perform ROS?: Yes Comments:: 02/20/20 09:11 GENERAL/CONSTITUTIONAL: No fever or chills. No weakness. HEAD, EYES, EARS, NOSE AND THROAT: No change in vision. No ear pain or discharge. No sore throat. CARDIOVASCULAR: No chest pain or shortness of breath RESPIRATORY: No cough, wheezing, or hemoptysis. GASTROINTESTINAL: No nausea, vomiting, diarrhea or constipation. GENITOURINARY: Dysuria, decreased urine output. No frequency, or other change in urination. MUSCULOSKELETAL: No joint or muscle swelling or pain. No neck or back pain. SKIN: No rash NEUROLOGIC: No headache, vertigo, loss of consciousness, or change in strength/sensation. ENDOCRINE: No increased thirst. No abnormal weight change HEMATOLOGIC/LYMPHATIC: No anemia, easy bleeding, or history of blood clots. ALLERGIC/IMMUNOLOGIC: No hives or skin allergy. *Physical Exam - Vital Signs Last Vital Signs Temp Pulse Resp BP Pulse Ox 98.1 F 96 H 16 146/70 97 02/20/20 07:44 02/20/20 07:44 02/20/20 07:44 02/20/20 07:44 02/20/20 07:44 - Physical Exam 02/20/20 09:11 GENERAL: Awake, alert, and fully oriented, in no acute distress HEAD: No signs of trauma, normocephalic, atraumatic EYES: PERRLA, EOMI, sclera anicteric, conjunctiva clear ENT: Auricles normal inspection, hearing grossly normal, nares patent, oropharynx clear without exudates. Moist mucosa NECK: Normal ROM, supple, no lymphadenopathy, JVD, or masses LUNGS: No distress, speaks full sentences, clear to auscultation bilaterally HEART: Regular rate and rhythm, normal S1 and S2, no murmurs, rubs or gallops, peripheral pulses normal and equal bilaterally. ABDOMEN: Suprapubic tenderness. Soft, otherwise nontender, normoactive bowel sounds. No guarding, no rebound. No masses EXTREMITIES : Normal inspection, Normal range of motion, no edema. No clubbing or cyanosis NEUROLOGICAL: Cranial nerves II through XII grossly intact. Normal speech, normal gait, no focal sensorimotor deficits SKIN: Warm, Dry, normal turgor, no rashes or lesions noted ED Treatment Course - LABORATORY CBC & Chemistry Diagram: 02/20/20 08:55 02/20/20 08:55 Medical Decision Making - Medical Decision Making 02/20/20 09:12 89F w/hx HTN, dysuria p/w ongoing dysuria after macrobid course. Ddx pyelonephritis, refractory UTI. Plan: CBC CMP 1L LR UA Urine culture Pyridium Dispo: Pending Discharge - Discharge Information Problems reviewed: Yes Clinical Impression/Diagnosis: Dysuria Condition: Good Disposition: HOME - Admission No - Additional Discharge Information Prescriptions: Amoxicillin/Potassium Clav [Augmentin 500-125 Tablet] 1 each PO BID 10 Days #20 tablet Phenazopyridine HCl [Pyridium] 200 mg PO TID 2 Days #6 tablet - Follow up/Referral - Patient Discharge Instructions Patient Printed Discharge Instructions: DI for Urinary Tract Infection (UTI) Additional Instructions: Usted fue evaluada por dolor urinario. Romo orine muestra signos de infeccion, tome a romo antibiotico dos veces al eleni, por 10 greene. Ve a romo doctor de cabezera lo mas pronto posible, in 4-5 greene. Regresa a la edvin de urgencias si empiezas a tener fiebres altas, nauseas y vomitos, dolor de pecho, o dificultad respirando. Print Language: FRENCH - Post Discharge Activity
[2020-02-20 09:09] LABS: BASO % 0.8 % (0-2.0); EOS % 0.7 % (0-4.5); HEMOGLOBIN 13.9 GM/dL (10.7-15.3); LYMPH % 13.7 % (8-40); MCHC 33.9 g/dl (32.0-36.0); MEAN CELL VOLUME 100.1 fl (80-96); MEAN PLT VOLUME 8.8 fl (7.5-11.1); MONO % 11.3 % (3.8-10.2); NEUT % 73.5 % (42.8-82.8); PLATELET COUNT 221 K/MM3 (134-434); RBC 4.09 M/mm3 (3.60-5.2); RDW 14.1 % (11.6-15.6); WHITE BLOOD COUNT 8.3 K/mm3 (4.0-10.0)
[2020-02-20] MEDS ORDERED: PHENAZOPYRIDINE HCL 100 MG TABLET (FP) PO ONE (09:12)
[2020-02-20 09:17] LABS: EPI CELLS >36 /uL (0-25.1); HYALINE CASTS 6 /uL (0-3.1); URINE APPEARANCE CLOUDY; URINE BACTERIA 494 /uL (0-1359); URINE BILIRUBIN NEGATIVE (NEGATIVE); URINE COLOR YELLOW; URINE GLUCOSE (UA) NEGATIVE (NEGATIVE); URINE KETONE TRACE (NEGATIVE); URINE LEUK ESTERASE 2+ (NEGATIVE); URINE NITRITE NEGATIVE (NEGATIVE); URINE PROTEIN NEGATIVE (NEGATIVE); URINE RBC 12 /uL (0-23.9); URINE WBC 181 /uL (0-25.8)
[2020-02-20 09:35] LABS: ALBUMIN 3.6 g/dl (3.4-5.0); BILIRUBIN,TOTAL 0.7 mg/dL (0.2-1); BLOOD UREA NITROGEN 15.5 mg/dL (7-18); CALCIUM 9.3 mg/dL (8.5-10.1); CREATININE 0.7 mg/dL (0.55-1.3); POTASSIUM 4.5 mmol/L (3.5-5.1); TOT PROT 7.1 g/dl (6.4-8.2)
[2020-02-20] MEDS ORDERED: PHENAZOPYRIDINE HCL 100 MG TABLET (FP) ONE (10:30)
[2020-02-20 10:50] VITALS: BP 132/74; PULSE 81
== END 2020-02-20 10:59 | disposition home or self-care (01) ==
LOC: JER 07:41
DX: R30.0 Dysuria (principal)
CPT/HCPCS: 36415; 80053; 81003; 85025; 87077; 87086; 99283-25

== ENCOUNTER 2020-02-23 07:29 | Emergency (ER) | payer OTHER ==
[2020-02-23 07:34] VITALS: BP 153/81; PULSE 89; TEMP 98.1; BMI 25.0
--- OUTSIDE RECORDS SUMMARY | 2020-02-23 07:44 | XMS ---
:1930 [facility] Organization [facility] Care Team Providers Name Role Phone ED STAFF PHYSICIANHARRIETT Unavailable Unavailable ELIZABETH WYATT Unavailable Unavailable HERNANDEZ, HANNAH A DO Unavailable HERNANDEZ, A DO Unavailable HERNANDEZ, A DO Unavailable HERNANDEZ, A DO Unavailable HERNANDEZ, A DO Unavailable HERNANDEZ, A DO Unavailable HERNANDEZ, A DO Unavailable HERNANDEZ, A DO Unavailable ED STAFF PHYSICIAN Unavailable Unavailable NEGHASSI Unavailable Unavailable ED STAFF PHYSICIAN Unavailable Unavailable ED STAFF PHYSICIAN Unavailable Unavailable ED STAFF PHYSICIAN Unavailable Unavailable CHASIDY CORDERO Unavailable Unavailable MITCHEL POSADA Unavailable Unavailable Re-disclosure Warning The records that [...] is protected by Article 27-F of the [facility] Public Health law. If you continue you may haveaccess to information: Regarding HIV / AIDS; Provided by facilities licensed or operated by the [facility] Office of Mental Health; or Provided by the [facility] Office for People With Developmental Disabilities. If such information is present, then the following [facility] mandated warning applies: This information has been [...] law may result in a fine or penitentiary sentence or both. A general authorization for the release of medical or other information is NOT sufficient authorization for further disclosure. Allergies and Adverse Reactions Type Description Substance Reaction Status Data Source(s ) No Known No Known Allergies No Known eCW3 ( [facility] Allergies Allergies [facility]) No Known No Known Allergies No Known eCW3 ( [facility] Allergies Allergies [facility]) No Known No Known Allergies No Known eCW3 ( [facility] Allergies Allergies [facility]) No Known No Known Allergies No Known eCW3 ( [facility] Allergies Allergies [facility]) Encounters Encounter Providers Location Date Indications Data Source(s ) Emergency Attender: HARRIETT BERRY H 02/04/2020 [facility] Covarr[facility]ias STAFF 06:52:00 AM EDT Medical C enter PHYSICIANAttender: - 02/04/2020 STAFF ED STAFF 10:32:00 AM EDT PHYSICIANAdmitter: HARRIETT ED STAFF PHYSICIAN Patient discharged. Emergency Attender: CONOR ED STAFF H 01/31/2020 08:09:00 AM [facility] PHYSICIANAttender: STAFF ED EDT - 01/31/2020 Medical Center STAFF PHYSICIANAdmitter: CONOR 10:39:00 AM EDT ED STAFF PHYSICIANReferrer: STAFF ED STAFF PHYSICIAN Patient discharged. Outpatient Attender: NEIDA GRULLON H 01/20/2020 01:48:00 PM [facility] AKINYEMIAdmitter: [facility] Center CHASIDY NGUYENPRESBYTERIAN KASEMAN HOSPITALReferrer: HANNAH HERNANDEZ DO Emergency Attender: ED STAFF H 11/29/2019 08:16:00 AM [facility] PHYSICIANAttender: ELIZABETH EDT - 11/29/2019 [facility] OULATOSHA JOHNSON AAttender: STAFF 12:25:00 PM EDT ED STAFF PHYSICIANAdmitter: ED STAFF PHYSICIAN Patient discharged. 11/29/2019 12[facility]00:[facility] [place] Emergency Attender: CONOR ED STAFF H 09/10/2019 11:01:00 AM [facility] PHYSICIANAttender: STAFF EDT - 09/10/2019 06:09 :00 Center ED STAFF PM EDT PHYSICIANAdmitter: CONOR ED STAFF PHYSICIAN Patient discharged. Emergency Attender: PETRA ED STAFF H 05/04/2019 01:53:00 PM [facility] PHYSICIANAttender: STAFF ED EST - 05/04/2019 Medical Center STAFF PHYSICIANAdmitter: PETRA 07:53:00 PM EST ED STAFF PHYSICIAN Patient discharged. Outpatient [facility] 02/12/2019 12:00:00 e CW3 ([facility] A28 AM EDT - 02/12/2019 [facility] 12:00:00 AM EDT Care) Outpatient [facility] 02/05/2019 12:00:00 e CW3 ([facility] A28 AM EDT - 02/05/2019 [facility] 12:00:00 AM EDT Care) Outpatient [facility] 11/13/2018 12:00:00 e CW3 ([facility] A28 AM EDT - 11/13/2018 [facility] 12:00:00 AM EDT Care) Outpatient Attender: GIL Diez 11/08/2018 08:29:00 [facility] CHASIDY EDT Medical Brentondenisha CORDEROAdmitter: GIL CORDEROReferrer: CODY MIKE Outpatient [facility] 11/05/2018 12:00:00 e CW3 ([facility] A28 AM EDT - 11/05/2018 [facility] 12:00:00 AM EDT Care) Emergency H [facility]:58[facility] Immunizations Vaccine Date Status Description Data Source(s) Tdap 02/23/2012 09:22:20 AM completed eCW3 ([facility] EDT Care) Medications Medication Brand Start Product Dose Route [facility] Indications Reaction Description Data Name Date Form Instructions Instructions Source(s) Vitamin B Vitami 10/01/ active Vitamin B -12 eCW3 12 0.05 MG n B-12 2020 50 MCG ([facility] Oral Tablet 50 [...] -12 eCW3 12 0.05 MG n B-12 2020 50 MCG ([facility] Oral Tablet 50 MCG 12:00: Rive r Vitamin 00 AM Health B-12 50 MCG EDT Care) Trazodone Trazod 1.0 active Trazodone eCW3 Hydrochlori one 2019 {tabl HCl 50 MG ([facility] de 50 MG HCl 50 12:00: et_at [facility] Oral Tablet MG 00 AM _bedt Health Trazodone EST ime_a Care) HCl 50 MG s_nee ded} Trazodone Trazod 01/24/ 1.0 active Trazodone eCW3 Hydrochlori one 2019 [...] 11/13/ suspend RAI Band age eCW3 - 2019 [...] Blood Blood suspend Blood eCW3 Pressure Pressu 2019 ed Pressure ([facility] Monitor - re 12:00: Monitor - Lorie er Monito 00 AM Health r - EDT Care) cetirizine ZyrTEC .0 suspend ZyrTEC eCW3 hydrochlori Allerg 2018 {tabl ed Allergy 10 ([facility] de 10 MG y 10 12:00: et} mg [facility] Oral Tablet mg 00 AM Health [[facility]] EST Care) ZyrTEC Allergy 10 mg cetirizine ZyrTEC .0 suspend ZyrTEC eCW3 hydrochlori Allerg 2018 {tabl ed Allergy 10 ([facility] de 10 MG y 10 12:00: et} mg [facility] Oral Tablet mg 00 AM Health [[facility]] EST Care) ZyrTEC Allergy 10 mg Flonase 50 Flonas .0 suspend Flonase 50 eCW3 MCG/DOSE e 50 2017 {spra ed MCG/DOSE ([facility] MCG/DO 12:00: y_in_ [facility] SE 00 AM [facility] Health EST nostr Care) il} Flonase 50 Flonas .0 suspend Flonase 50 eCW3 MCG/DOSE e 50 2017 {spra ed MCG/DOSE ([facility] [facility] MCG/DO 12:00: y_in_ [facility] SE 00 AM each Health EST nostr Care) il} cetirizine ZyrTEC .0 suspend ZyrTEC eCW3 hydrochlori Allerg 2018 {tabl ed Allergy 10 ([facility] de 10 MG y 10 12:00: et} mg [facility] Oral Tablet mg 00 AM Health [[facility]] EST Care) ZyrTEC Allergy 10 mg Flonase [...] ZyrTEC .0 suspend ZyrTEC eCW3 hydrochlori Allerg 2017 {tabl ed Allergy 10 ([facility] de 10 MG y 10 12:00: et} mg [facility] Oral Tablet mg 00 AM Health [Zyrtec] EST Care) ZyrTEC Allergy 10 mg Simvastatin [...] 300 MG EST Care) Aspirin 81 ASPIRI .0 suspend ASPIRIN 81 eCW3 MG Delayed N 81 2015 {tabl ed mg ([facility] Release mg 12:00: et} [facility] Oral Tablet 00 AM Health ASPIRIN 81 EDT Care) mg Aspirin 81 ASPIRI .0 suspend ASPIRIN 81 eCW3 MG Delayed N 81 2015 {tabl ed mg ([facility] Release mg 12:00: [...] ded} Care) HCl 12.5 MG Meclizine Mecliz 1.0 active Meclizine eCW3 Hydrochlori ine 2013 {tabl [...] Cholecalcif Cholec suspend Cholecal cife eCW3 carole [id number] [place] rol [address] ([facility] UNT Oral rol UNIT [facility] Capsule 65980 Health Cholecalcif UNIT Care) carole 90446 UNIT Ibuprofen Ibupro suspend Ibuprofen eCW3 800 MG Oral fen ed 800 MG ([facility] Tablet 800 MG [facility] Care) Enalapril Enalap 1.0 active Enalapril e CW3 Maleate 2.5 ril {tabl Maleate 2.5 ([facility] MG Oral Maleat et} MG [facility] Tablet e 2.5 Health Care) Estradiol Estrac suspend Estrace 0. 1 eCW3 0.1 MG/ML e 0.1 ed MG/GM ([facility] Vaginal MG/GM [facility] [Estrace] Care) Estrace 0.1 MG/GM miconazole [id number] 1.5 complet Monistat 1 [facility] nitrate mL ed Combo Pack Deonte s (Monistat 1 Medical Combo Pack) Center 1,200 mg-2 % Kit, Ordered By: Josey Ramos s: 1.5 mL per vagina twice a day Estradiol Estrac suspend Estrace 0. 1 eCW3 0.1 MG/ML e 0.1 ed MG/GM ([facility] Vaginal MG/GM [facility] [Estrace] Care) Estrace 0.1 MG/GM Simvastatin Simvas suspend Simvasta tin eCW3 20 MG Oral tatin ed 20 MG ([facility] Tablet 20 MG [facility]) Ibuprofen Ibupro suspend Ibuprofen eCW3 800 MG Oral fen ed 800 MG ([facility] [facility] Tablet 800 MG [facility]) Trazodone Trazod 1.0 suspend Trazodone eCW3 Hydrochlori one {tabl ed HCl 50 MG (H udson de 50 MG HCl 50 et_at [facility] Oral Tablet MG _bedt [facility] Trazodone ime_a Care) HCl 50 MG s_nee ded} Aspirin 81 Aspiri 1.0 suspend Aspirin 8 1 eCW3 MG Chewable n 81 {tabl ed MG ([facility] Tablet MG et} [facility] Care) Ibuprofen Ibupro suspend Ibuprofen eCW3 800 MG Oral fen ed 800 MG ([facility] Tablet 800 MG [facility]) Estradiol Estrac suspend Estrace 0. 1 eCW3 0.1 MG/ML e 0.1 ed MG/GM ([facility] Vaginal MG/GM [facility] [Estrace] Care) Estrace 0.1 MG/GM gabapentin Gabape 1.0 active Gabapentin eCW3 100 MG Oral ntin {caps 100 MG ([facility] Capsule 100 MG ule} [facility] Gabapentin [facility] 100 MG Care) Cholecalcif Cholec suspend Cholecal cife eCW3 carole 65358 [place] rol 42067 ([facility] UNT Oral rol UNIT [facility] Capsule 46587 Health Cholecalcif UNIT Care) carole 65429 UNIT Ibuprofen IBUPRO 1.0 active IBUPROFEN e CW3 400 MG Oral FEN {tabl 400 MG ([facility] Tablet 400 MG et} [facility] IBUPROFEN Health 400 MG Care) Aspirin 81 Aspiri 1.0 suspend Aspirin 8 1 eCW3 MG Chewable n 81 {tabl ed MG ([facility] Tablet MG et} [facility]) Ibuprofen Ibupro suspend Ibuprofen eCW3 800 MG Oral fen ed 800 MG ([facility] [facility] Tablet 800 MG [facility]) Pramipexole Pramip 1.0 suspend Pramipex ole eCW3 Dihydrochlo exole {tabl ed Dihydrochlo r ([facility] ride 0.5 MG Dihydr et} ludwig 0.5 MG [facility] ludwig Care) 0.5 MG trospium Trospi 1.0 suspend Trospium eC W3 chloride 20 um {tabl ed Chloride 20 ([facility] MG Oral Chlori et_at MG [facility] Tablet de 20 _bedt Health Trospium MG ime_o Care) Chloride 20 n_an_ MG empty _stom ach} Cholecalcif Cholec suspend Cholecal cife eCW3 carole [address]07 [place] rol [address]676 ([facility] UNT Oral rol UNIT [facility] Capsule 80149 Health Cholecalcif UNIT Care) carole 78708 UNIT Vitamin D Vitami 1.0 active Vitamin D 5 0 eCW3 50 MCG n D 50 {caps MCG (1999 ([place] (1999 [place]) MCG ule} [place]) [facility] (1999 Health [place]) Care) Simvastatin Simvas suspend Simvasta tin eCW3 20 MG Oral tatin ed 20 MG ([facility] Tablet 20 MG [facility]) Fluconazole flucon 1 complet Raul nt 100 [...] MG ([facility] [place] Capsule 100 MG ule} [facility] Gabapentin [facility] 100 MG Care) Vitamin D Vitami 1.0 suspend Vitamin D 50 eCW3 50 MCG n D 50 {caps ed MCG (1999 ([facility] (1999 [place]) MCG ule} [place]) [facility] (1999 Health [place]) Care) Estradiol Estrac suspend Estrace 0. 1 eCW3 0.1 MG/ML e 0.1 ed MG/GM ([facility] Vaginal MG/GM [facility] [Estrace] Care) Estrace 0.1 MG/GM Trazodone Trazod 1.0 active Trazodone e CW3 Hydrochlori one {tabl HCl 50 MG (H udson de 50 MG HCl 50 et_at [facility] Oral Tablet MG _bedt Health Trazodone ime_a Care) HCl 50 MG s_nee ded} Vitamin D Vitami 1.0 active Vitamin D 5 0 eCW3 50 MCG n D 50 {caps MCG (1999 ([place] [place] (1999) MCG ule} [place]) [facility] (1999 [facility]) Care) Enalapril Enalap 1.0 active Enalapril e CW3 Maleate 2.5 ril {tabl Maleate 2.5 ([facility] MG Oral Maleat et} MG [facility] Tablet e 2.5 Health MG Care) Aspirin 81 Aspiri 1.0 suspend Aspirin 8 1 eCW3 MG Chewable n 81 {tabl ed MG ([facility] Tablet MG et} [facility] Care) Vitamin D Vitami 1.0 suspend Vitamin D 50 eCW3 50 MCG n D 50 {caps ed MCG (1999 ([facility] [place] (1999) MCG ule} [place]) [facility] (1999 [facility]) Care) Ibuprofen IBUPRO 1.0 active IBUPROFEN e CW3 400 MG Oral FEN {tabl 400 MG ([facility] [place] Tablet 400 MG et} [facility] IBUPROFEN Health 400 MG Care) gabapentin gabape 1 complet Martha t 100 MG Oral ntin ed [facility] Capsule 100 mg Medical gabapentin Capsul Center 100 mg e, Capsule, Ordere Ordered By: d By: Rhonda Brice, Palli, MDDirection MDDire s: 1 ctions capsule : 1 oral twice capsul a day e oral twice a day Ibuprofen ibupro 1 complet [facility] 400 MG Oral fen ed [facility] Tablet 400 mg Medical ibuprofen Tablet Center 400 mg , Tablet, Ordere Ordered By: d By: Harriett Delacruz, odilon MDDirection Leno, s: 1 tablet MDDire oral [...] {tabl ed MG ([facility] Tablet MG et} [facility] Care) Cholecalcif Cholec suspend Cholecal cife eCW3 carole 19332 [place] rol 06641 ([facility] UNT Oral rol UNIT [facility] Capsule 38215 Health Cholecalcif UNIT Care) carole 62417 UNIT trospium Trospi 1.0 suspend Trospium eC W3 chloride 20 um {tabl ed Chloride 20 ([facility] MG Oral Chlori et_at MG [facility] Tablet de 20 _bedt Health Trospium MG ime_o Care) Chloride 20 n_an_ MG empty _stom ach} Simvastatin Simvas suspend Simvasta tin eCW3 20 MG Oral tatin ed 20 MG ([facility] Tablet 20 MG [facility] Care) Ibuprofen IBUPRO 1.0 active IBUPROFEN e CW3 400 MG Oral FEN {tabl 400 MG ([facility] Tablet 400 MG et} [facility] IBUPROFEN Health 400 MG Care) Simvastatin Simvas suspend Simvasta tin eCW3 20 MG Oral tatin ed 20 MG ([facility] Tablet 20 MG [facility]) Pramipexole Pramip 1.0 suspend Pramipex ole eCW3 Dihydrochlo exole {tabl ed Dihydrochlo r ([facility] ride 0.5 MG Dihydr et} ludwig 0.5 MG [facility] ludwig Care) 0.5 MG Insurance Providers Payer name Policy type Policy ID Covered Covered democrat's Policy P jamison / Coverage democrat ID relationship to [place] Inf ormation type chavez MEDICAID [id number] SP [id number] MEDICARE [id number] SP [id number] M [id number] 01 [id number] W [id number] 01 [id number] 01 [id number] M MEDICAID [id number] SP [id number] MEDICAID [id number] SP [id number] MEDICARE [id number] SP [id number] 94 4 Problems, Conditions, and Diagnoses Code Display Name Description Problem Type Effective Data Dates Source(s) M25.512 Acute pain of left Acute pain of left Problem 0 eCW3 ([facility] [facility] R20.2 Paresthesia Paresthesia Problem 11/01/2019 eCW3 ([facility] 12:00:00 AM [facility] EDT Care) M25.552 Left hip pain Left hip pain Problem 11/01/2019 eCW3 ([facility]00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 06/21/2019 eCW3 ([facility] other mental other mental 12:00:00 AM [facility] disorder disorder EST Care) F99 Mental disorder, Mental disorder, Problem 06/21/2019 eC W3 ([facility] not otherwise not otherwise 12:00:00 AM [facility] e[facility] specified specified EST Care) F99 Mental disorder, Mental disorder, Problem 06/21/2019 eC W3 ([facility] not otherwise not otherwise 12:00:00 AM [facility] H ealt specified specified EST Care) E66.9 Obesity (BMI Obesity (BMI Problem 02/12/2019 eCW3 ([facility] 30-39.9) 30-39.9) 12:00:00 AM [facility] EDT Care) E66.9 Obesity (BMI Obesity (BMI Problem 02/12/2019 eCW3 ([facility] 30-39.9) 30-39.9) 12:00:00 AM [facility] EDT Care) 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 11/05/2018 eCW3 ([facility] left hip, left hip, 12:00:00 AM [facility] unspecified unspecified EDT Care) osteoarthritis type osteoarthritis type 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 11/05/2018 eCW3 ([facility] left hip, left hip, 12:00:00 AM [facility] unspecified unspecified EDT Care) osteoarthritis type osteoarthritis type Z68.37 Body mass index Adult BMI 37.0-37.9 Problem 06/25/2018 eCW3 ([facility] 35.00 to 39.99 kg/sq m 12:00:00 AM [facility] EST Care) E66.01 Morbid obesity Extreme obesity Problem 06/25/2018 eCW3 ([facility] 12:00:00 AM [facility] EST Care) E66.01 Morbid obesity Extreme obesity Problem 06/25/2018 eCW3 ([facility] 12:00:00 AM [facility] EST Care) Z68.37 Body mass index Adult BMI 37.0-37.9 Problem 06/25/2018 eCW3 ([facility] 35.00 to 39.99 kg/sq m 12:00:00 AM [facility] EST Care) 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 Problem 04/03/2018 eCW3 ([facility] right hip, right hip, 12:00:00 AM [facility] unspecified unspecified EST Care) osteoarthritis type osteoarthritis type 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 Problem 04/03/2018 eCW3 ([facility] right hip, right hip, 12:00:00 AM [facility] unspecified unspecified EST Care) osteoarthritis type osteoarthritis type H54.7 Decreased vision Decreased vision Problem 06/16/2017 eC W3 ([facility] 12:00:00 AM [facility] EST Care) E78.4 Hyperlipidemia Other Problem 06/16/2017 eCW3 ([facility] hyperlipidemia 12:00:00 AM [facility] EST Care) H54.7 Decreased vision Decreased vision Problem 06/16/2017 eC W3 ([facility] 12:00:00 AM [facility] EST Care) E78.4 Hyperlipidemia Other Problem 06/16/2017 eCW3 ([facility] hyperlipidemia 12:00:00 AM [facility] EST Care) N95.1 Menopause Menopausal and Problem 03/16/2017 eCW3 ([facility] female climacteric 12:00:00 AM [facility] EDT Care) 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, Problem 03/16/2017 e CW3 ([facility] unspecified 12:00:00 AM [facility] EDT Care) I10 Essential Essential (primary) Problem 03/16/2017 eCW3 ([facility] hypertension hypertension 12:00:00 AM [facility] EDT Care) I10 Essential Essential (primary) Problem 03/16/2017 eCW3 ([facility] hypertension hypertension 12:00:00 AM [facility] EDT Care) N95.1 Menopause Menopausal and Problem 03/16/2017 eCW3 ([facility] female climacteric 12:00:00 AM [facility] EDT Care) 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, Problem [...] Prediabetes Problem 05/05/2015 eCW3 ([facility] 12:00:00 AM [facility]) E78.5 Hyperlipidemia Hyperlipidemia Problem 05/05/2015 eCW3 ( [facility] 12:00:00 AM [facility]) I10 Essential (primary) ESSENTIAL (PRIMARY) Diagnosis 020 [...] skin CANDIDIASIS OF SKIN Diagnosis 020 [facility] and nail AND NAIL 08:09:00 AM Medical [...] Center M19.012 Primary PRIMARY Diagnosis 11/29/2019 [facility] Covarrubias osteoarthritis, OSTEOARTHRITIS, 08:16:00 AM Med ical left shoulder LEFT SHOULDER EDT Center G62.9 Polyneuropathy, POLYNEUROPATHY, Diagnosis 11/29/2019 Martha Covarrubias unspecified UNSPECIFIED 08:16:00 AM Medical EDT Center R20.0 Anesthesia of skin ANESTHESIA OF SKIN Diagnosis 0 [facility] 08:16:00 AM Medical EDT Center G89.29 Other chronic pain OTHER CHRONIC PAIN Diagnosis 0 [facility] [place] 11:01:00 AM Medical EDT Center M25.559 Pain in unspecified PAIN IN UNSPECIFIED Diagnosis 020 [facility] hip HIP 11:01:00 AM Medical EDT Center [...] EDT Center Results ID Date Data Source Urinalysis.[id number] 02/04/2020 07:50:00 AM EDT [facility] 0 Name Value Range Interpretation Description Data Sup porting Code Source(s) Document(s ) UNK CLEAR <content [facility] styleCode="Ross Marci d">Urine Medical Clarity Center </content>JEOVANNY R <content [...] by Test d">Urine Medical strip Specific Center Sells </content>1.02 5 <content styleCode="Cheri lics"> (1.015-1.025 )</content> Ketones NEGATIVE <content [facility] [Mass/volume] styleCode="Ross Clemonss in Urine by d">Urine Medical Test strip Ketone Center </content>NEGA TIVE MG/DL<content styleCode="Cheri lics"> (NEGATIVE MG/DL)</conten t> UNK NEGATIVE <content [facility] styleCode="Ross Clemonss d">Urine Medical Bilirubin Center </content>NEGA TIVE <content [...] lics"> (NEGATIVE )</content> ID Date Data Source [id number] 09/18/2019 12:00:00 AM EDT [facility] Name Value Range Interpretation Code Description Data Carolina rce(s) Supporting Document(s ) 2019-nCoV [facility] RNA XXX LATRICE+probe- Imp This lab was ordered by METPAAYRE 5 [phone] and reported by [employer]. ID Date Data Source Liver 05/04/2019 04:08:00 PM EST [facility] Profile.[id number] Name Value Range Interpretation Description Data Sup [...] (14-36 IU/L)</content> UNK 0.0-0.3 <content Saint styleCode="Bold"> Marci Bilirubin, Direct Medical </content>< 0.2 Center MG/DL<content styleCode="Italic s"> (0.0-0.3 MG/DL)</content> Bilirubin.total 0.2-1.3 <content [facility] [Mass/volume] in styleCode="Bold"> Shmuel hs Serum or Plasma Bilirubin Total Medical </content>0.5 Center MG/DL<content styleCode="Italic s"> (0.2-1.3 MG/DL)</content> Albumin 3.5-5.0 <content [facility] [Mass/volume] in styleCode="Bold"> Shmuel hs Serum or Plasma Albumin Medical </content>3.9 Center G/DL<content styleCode="Italic s"> (3.5-5.0 G/DL)</content> ID Date Data Source HematologyRou.[id number] 05/04/2019 04:08:00 PM REGI [facility] 0500 Name Value Range Interpretation Description [...] styleCode="Ital ics"> (0.0-1.0 %)</content> UNK 0-0.1 <content Saint styleCode="Bold Marci ">Immature Medical Granulocyte Center Count </content>0.03 KCUMM<content styleCode="Ital ics"> (0-0.1 KCUMM)</content > UNK < 1 <content [facility] styleCode="Bold Marci ">Immature Medical Granulocyte Center Ratio </content>0.4 %<content styleCode="Ital ics"> (< 1 %)</content> UNK 0.0 <content [facility] styleCode="Bold Marci ">Nucleated Red Medical Blood Cell Center Count </content>0.00 KCUMM<content styleCode="Ital ics"> (0.0 KCUMM)</content > ID Date Data Source GFR(Creatinine).[id number] 05/04/2019 04:08:00 PM EST [facility] 0-0500 Name Value Range Interpretation Code Description Data Carolina rce(s) Supporting Document(s ) UNK > 60 <content [facility] styleCode="Bold"> Medical Cent er EGFR </content>124 GFR<content styleCode="Italic s"> (> 60 GFR)</content> ID Date Data Source Coagulation 05/04/2019 04:08:00 PM [facility] ical Center Rout.[id number] EST Name Value Range Interpretation Description Data Sup porting Code Source(s) Document(s ) INR in 0.80-1.2 <content [facility] Platelet poor 0 styleCode="Bold" [facility]ci plasma by >INR Medical Coagulation </content>1.04 Center assay #<content styleCode="Itali cs"> (0.80-1.20 #)</content> UNK 9.0-13.0 <content [facility] styleCode="Bold" Marci >Protime Medical </content>11.5 Center SEC<content styleCode="Itali cs"> (9.0-13.0 SEC)</content> aPTT in 25.1-36. <content [facility] Platelet poor 5 styleCode="Bold" Marci plasma by >Partial Medical Coagulation Thromboplastin Center assay Time </content>31.5 SEC<content styleCode="Itali cs"> (25.1-36.5 SEC)</content> ID Date Data Source [facility].[id number] 05/04/2019 04:08:00 PM EST [facility] -0500 Name Value Range Interpretation Description Data Sup porting Code Source(s) Document(s ) Natriuretic < 450 <content [facility] peptide.B styleCode="Ross Marci prohormone d">NT Pro BNP Medical N-Terminal </content>298 Center [Mass/volume] PG/ML<content in Serum or styleCode="Cheri Plasma lics"> (< 450 PG/ML)</conten t> ID Date Data Source [employer].[id number] 05/04/2019 04:08:00 PM EST [facility] -0500 Name Value Range Interpretation Description Data [...] ics"> (30-135 IU/L)</content> ID Date Data Source [facility].[id number] 05/04/2019 04:08:00 PM EST [facility] Center Name Value Range Interpretation Description Data [...] IU/L)</content> Alkaline 38-126 <content [facility] phosphatase styleCode="Bold"> [facility] [Enzymatic Alkaline Medical activity/volume] Phosphatase (ALP) Cente r in Serum or Plasma </content>82 IU/L<content styleCode="Italic s"> (38-126 IU/L)</content> UNK > 60 <content [facility] styleCode="Bold"> [facility] EGFR Medical </content>124 Center GFR<content styleCode="Italic s"> [...] s"> (3.5-5.0 G/DL)</content> ID Date Data Source Urinalysis.[id number] 05/04/2019 04:05:00 PM EST Raul nt [facility] 0 Name Value Range Interpretation [...] 1.015-1.02 <content Saint gravity of 5 styleCode="Ross Marci Urine by Test d">Urine Medical strip Specific Center Sells </content>1.01 5 <content styleCode="Cheri lics"> (1.015-1.025 )</content> Ketones NEGATIVE <content Saint [Mass/volume] styleCode="Ross Marci in [...] Unknown if ever eCW3 ([facility] smoked smoked [facility]) Smoking Unknown if ever completed Unknown if ever eCW3 ([facility] smoked smoked [facility]) Smoking Unknown if ever completed Unknown if ever eCW3 ([facility] smoked smoked [facility]) Smoking Unknown if ever completed Unknown if ever eCW3 ([facility]ar smoked smoked [facility]) Vital Signs ID Date Data Source UNK Name Value Range Interpretation Code Description Data Source(s) Body temperature 37.088514 37.553045 [facility] Respiratory rate 18 /min 18 /min [facility] Oxygen saturation 98 % 98 % [facility] blood [facility] by Pulse oximetry Heart rate 80 /min 80 /min [facility] Diastolic blood 90 mm[Hg] 90 mm[Hg] [facility] pressure [facility] Center Systolic blood 186 mm[Hg] 186 mm[Hg] [facility] Body weight 81.686025 kg 81.198433 kg [facility] Body temperature 36.673498 36.383133 [facility] Respiratory rate 19 /min 19 /min [facility] Oxygen saturation 96 % 96 % [facility] by Pulse oximetry Heart rate 81 /min 81 /min [facility] Body height 149.143806 149.008552 [facility] Diastolic blood 89 mm[Hg] 89 mm[Hg] [facility] pressure Medical Center Systolic blood 179 mm[Hg] 179 mm[Hg] [facility] Center Body mass index 36.3 kg/m2 36.3 kg/m2 [facility] (BMI) [Ratio] Medical [address] Body weight 75.514346 kg 75.166268 kg [facility] Body temperature 36.448282 36.540545 [facility] Respiratory rate 18 /min 18 /min [facility] Oxygen saturation 96 % 96 % [facility] in Arterial blood [facility] Center by Pulse oximetry Heart rate 84 /min 84 /min [facility] Body height 147.823614 147.328045 [facility] Diastolic blood 84 mm[Hg] 84 mm[Hg] [facility] pressure Medical Center Systolic blood 169 mm[Hg] 169 mm[Hg] [facility] Body mass index 34.9 kg/m2 34.9 kg/m2 [facility] (BMI) [Ratio] Medical [facility] ter Body temperature 36.387297 36.785625 [facility] Respiratory rate 18 /min 18 /min [facility] Oxygen saturation 98 % 98 % [facility] in Arterial blood [facility] Center by Pulse oximetry Heart rate 85 /min 85 /min [facility] Diastolic blood 84 mm[Hg] 84 mm[Hg] [facility] pressure Medical Center Systolic blood 146 mm[Hg] 146 mm[Hg] [facility] Oxygen saturation 98 % 98 % [facility] blood [facility] Center by Pulse oximetry Heart rate 89 /min 89 /min [facility] Diastolic blood 82 mm[Hg] 82 mm[Hg] [facility] Systolic blood 158 mm[Hg] 158 mm[Hg] [facility] Body temperature 36.586234 36.422082 [facility] Respiratory rate 18 /min 18 /min [facility] Body weight 81.040089 kg 81.607351 kg [facility] Body temperature 36.523587 36.825863 [facility] Respiratory rate 16 /min 16 /min [facility] Oxygen saturation 99 % 99 % [facility] blood [facility] by Pulse oximetry Heart rate 91 /min 91 /min [facility] Body height 152.769269 152.738864 [facility] Diastolic blood 88 mm[Hg] 88 mm[Hg] [facility] pressure Medical Center Systolic blood 138 mm[Hg] 138 mm[Hg] [facility] pressure [facility] Center Body mass index 35.1 kg/m2 35.1 kg/m2 [facility] (BMI) [Ratio] Medical [facility] Body temperature 36.962850 36.831963 [facility] Respiratory rate 18 /min 18 /min [facility] Oxygen saturation 98 % 98 % [facility] in Arterial blood Medical Center by Pulse oximetry Heart rate 79 /min 79 /min [facility] Diastolic blood 71 mm[Hg] 71 mm[Hg] [facility] pressure Medical Center Systolic blood 131 mm[Hg] 131 mm[Hg] [facility] pressure [facility] Center Diastolic blood 65 mm[Hg] 65 mm[Hg] eCW3 ([facility]) Systolic blood 111 mm[Hg] 111 mm[Hg] eCW3 ([facility]) Body temperature 98.1 [degF] 98.1 [degF] eCW3 ( [facility]) Heart rate 18 /min 18 /min eCW3 ([facility]) Body mass index 39.81 kg/m2 39.81 kg/m2 eCW3 ([facility] (BMI) [Ratio] [facility]) Body weight 184.0 184.0 [lb_av] eCW3 ([facility] [lb_av] [facility]) Body height 57.0 [in_i] 57.0 [in_i] eCW3 ([facility]) Diastolic blood 80 mm[Hg] 80 mm[Hg] eCW3 ([facility]) Systolic blood 136 mm[Hg] 136 mm[Hg] eCW3 ([facility]) Body temperature 98.7 [degF] 98.7 [degF] eCW3 ( [facility]) Heart rate 20 /min 20 /min eCW3 ([facility]) Body weight [lb_av] eCW3 ([facility]) Body height 57.25 [in_i] 57.25 [in_i] eCW3 ([facility]) Diastolic blood 80 mm[Hg] 80 mm[Hg] eCW3 ([facility]) Systolic blood 154 mm[Hg] 154 mm[Hg] eCW3 ([facility]) Body temperature 98.2 [degF] 98.2 [degF] eCW3 ( [facility]) Heart rate 20 /min 20 /min eCW3 ([facility]) Body mass index 39.04 kg/m2 39.04 kg/m2 eCW3 ([facility] (BMI) [Ratio] [facility]) Body weight 182 [lb_av] 182 [lb_av] eCW3 ([facility]) Body height 57.25 [in_i] 57.25 [in_i] eCW3 ([facility]) Body temperature 36.293899 36.428586 [facility] Respiratory rate 18 /min 18 /min [facility] Oxygen saturation 97 % 97 % [facility] J osephs in Arterial blood [facility] by Pulse oximetry Heart rate 77 /min 77 /min [facility] Diastolic blood 86 mm[Hg] 86 mm[Hg] [facility] Systolic blood 144 mm[Hg] 144 mm[Hg] [facility] Body temperature 36.520531 36.305120 [facility] Respiratory rate 17 /min 17 /min [facility] Oxygen saturation 96 % 96 % [facility] by Pulse oximetry Heart rate 88 /min 88 /min [facility] Diastolic blood 78 mm[Hg] 78 mm[Hg] [facility] Systolic blood 128 mm[Hg] 128 mm[Hg] [facility] Patient Treatment Plan of Care Planned Activity Planned Date Details Description Data Source (s) Vitamin B 12 0.05 MG Oral 10/02/2019 12:00:00 eCW3 ([facility] Tablet [facility]) Vitamin B 12 0.05 MG Oral 10/02/2019 12:00:00 eCW3 ([facility] Tablet [facility]) miconazole nitrate [facility] (Monistat 1 Combo Pack) Cent er 1,200 mg-2 % Kit, Ordered By: SHARONDA Ramosirections: 1.5 mL per vagina twice a day Ketorolac Tromethamine 10 [facility] MG Oral Tablet Center Fluconazole 100 MG Oral [facility] Tablet [place] Trazodone Hydrochloride eCW3 ([facility] 50 MG Oral [facility]) gabapentin 100 MG Oral [facility] Vitamin D 50 MCG (1999 eCW3 ([facility]) Ibuprofen 400 MG Oral eCW3 ( [facility]) trospium chloride 20 MG eCW3 ([facility] Oral Tablet [facility]) Vitamin D 50 MCG (1999 eCW3 ([facility]) Ibuprofen 400 MG Oral eCW3 ( [facility]) trospium chloride 20 MG eCW3 ([facility] Oral Tablet [facility]) Ibuprofen 400 MG Oral [facility]
--- NOTE | 2020-02-23 08:07 | PDOC ---
History of Present Illness - General Chief Complaint: Urinary Problem Stated Complaint: URINARY PROBLEM Time Seen by Provider: 02/23/20 08:07 History Source: Patient - History of Present Illness Initial Comments: 02/23/20 10:05 89F w/hx HTN, recent evaluation for dysuria p/w ongoing dysuria. She reports ongoing dysuria, suprapubic pressure with urination. She reports being nervous to urinate secondary to pain. She denies any fevers, chills, nausea, vomiting, weakness, confusion. She reports that symptoms resolved with pyridium but has had ongoing dysuria despite taking abx as directed. She was discharged on 02/19 with augmentin, previously had taken course of macrobid by PCP. She also reports that documented penicillin allergy is false, but she reported that initially since she has heard that "some people have a bad reaction to it". She has taken penicillins in the past without incident. Past History - Medical History Allergies/Adverse Reactions: Allergies Allergy/AdvReac Type Severity Reaction Status Date / Time Penicillins Allergy Unknown Verified 02/23/20 07:34 Home Medications: Ambulatory Orders Bupropion HCl [Bupropion Xl] 150 mg PO DAILY 07/24/19 Cholecalciferol (Vitamin D3) [Vitamin D3] 50,000 unit PO SA 07/24/19 Docusate Sodium [Colace -] 100 mg PO BID #60 capsule 07/24/19 Enalapril Maleate 2.5 mg PO DAILY 07/24/19 Mineral Oil Enema [Fleet Mineral Oil Rectal Enema -] 133 ml NR ONCE #7 enema 07/24/19 Amoxicillin/Potassium Clav [Augmentin 500-125 Tablet] 1 each PO BID 10 Days #20 tablet 02/20/20 Phenazopyridine HCl [Pyridium] 200 mg PO TID 2 Days #6 tablet 02/20/20 Phenazopyridine HCl [Pyridium] 200 mg PO TID 2 Days #6 tablet 02/23/20 Sulfamethoxazole/Trimethoprim [Bactrim Ds -] 1 tab PO BID 14 Days #28 tablet 02/23/20 Anemia: No Asthma: No Cancer: No Cardiac Disorders: No CVA: No COPD: No CHF: No DVT: No Dementia: No Diabetes: No GI Disorders: No Disorders: No HTN: Yes Hypercholesterolemia: No Liver Disease: No Seizures: No Thyroid Disease: No - Surgical History Abdominal Surgery: Yes Appendectomy: Yes Cardiac Surgery: No Cholecystectomy: Yes Lung Surgery: No Neurologic Surgery: No Orthopedic Surgery: No - Immunization History Immunization Up to Date: Yes - Psycho-Social/Smoking History Smoking Status: No Smoking History: Never smoked Have you smoked in the past 12 months: No Number of Cigarettes Smoked Daily: 0 *Physical Exam - Vital Signs Last Vital Signs Temp Pulse Resp BP Pulse Ox 98.1 F 89 18 153/81 96 02/23/20 07:30 02/23/20 07:30 02/23/20 07:30 02/23/20 07:30 02/23/20 07:30 Discharge - Discharge Information Problems reviewed: Yes Clinical Impression/Diagnosis: Dysuria Urinary tract infection Qualifiers: Urinary tract infection type: acute cystitis Hematuria presence: without hematuria Qualified Code(s): N30.00 - Acute cystitis without hematuria Condition: Stable Disposition: HOME - Admission No - Additional Discharge Information Prescriptions: Sulfamethoxazole/Trimethoprim [Bactrim Ds -] 1 tab PO BID 14 Days #28 tablet Phenazopyridine HCl [Pyridium] 200 mg PO TID 2 Days #6 tablet - Follow up/Referral Referrals: ON STAFF,NOT [Primary Care Provider] - - Patient Discharge Instructions Patient Printed Discharge Instructions: DI for Urinary Tract Infection (UTI) Additional Instructions: Usted fue evaluada por dolor urinario. Romo orine muestra infeccion. Por favor saida el antibiotico dos veces al eleni, por dos semanas, con comida. Ve a romo doctor de cabezera lo mas pronto posible, en 2-3 greene. Regresa a la edvin de urgencias si empiezas a tener fiebres altas, dolor de tr, nausea, o vomitos. - Post Discharge Activity
[2020-02-23 08:46] LABS: EPI CELLS >36 /uL (0-25.1); HYALINE CASTS 3 /uL (0-3.1); PH,URINE 6.5 (5.0-8.0); URINE APPEARANCE CLEAR; URINE BILIRUBIN 1+ (NEGATIVE); URINE COLOR DK YELLOW; URINE GLUCOSE (UA) NEGATIVE (NEGATIVE); URINE KETONE NEGATIVE (NEGATIVE); URINE LEUK ESTERASE 1+ (NEGATIVE); URINE NITRITE POSITIVE (NEGATIVE); URINE PROTEIN NEGATIVE (NEGATIVE); URINE RBC 15 /uL (0-23.9); URINE WBC 27 /uL (0-25.8)
--- NOTE | 2020-02-23 09:01 | PDOC ---
Attending Attestation - Resident Resident Name: Jenaro Rasmussen - ED Attending Attestation I have performed the following: I have examined & evaluated the patient, The case was reviewed & discussed with the resident, I agree w/resident's findings & plan, Exceptions are as noted - HPI HPI: 02/23/20 08:58 89 F with h/o HTN presenting with dysuria x 10 days. Pt was initially started on Macrobid. Was seen in ED 3 days ago and had labwork done. Pt was switched to augmentin, which she has been taking. However, pt reports persistent dysuria. Denies F/C. Denies abdominal pain or flank pain. - Physicial Exam PE: 02/23/20 09:00 "GENERAL: Awake, alert, and fully oriented, in no acute distress. HEAD: No signs of trauma EYES: PERRLA, EOMI, sclera anicteric, conjunctiva clear ENT: Auricles normal inspection, hearing grossly normal, nares patent, oropharynx clear without exudates. Moist mucosa NECK: Nontender, no stepoffs, Normal ROM, supple, no lymphadenopathy, JVD, or masses LUNGS: Breath sounds equal, clear to auscultation bilaterally. No wheezes, and no crackles HEART: Regular rate and rhythm, normal S1 and S2, no murmurs, rubs or gallops ABDOMEN: Soft, nontender, normoactive bowel sounds. No guarding, no rebound. No masses EXTREMITIES: Normal range of motion, no edema. No clubbing or cyanosis. No cords, erythema, or tenderness NEUROLOGICAL: Cranial nerves II through XII intact. 5/5 strength and sensation in all extremities, Normal speech, normal gait, normal cerebellar function SKIN: Warm, Dry, normal turgor, no rashes or lesions noted. - Medical Decision Making 02/23/20 09:00 89 F with dysuria. Suspect persistent UTI. - UA, UCx 02/23/20 09:23 UA consistent with UTI Will change abx from augmentin to bactrim Pt is well appearing, with normal vitals. Clinically stable for DC at this time. I discussed the physical exam findings, ancillary test results and final diagnoses with the patient. I answered all of the patient's questions. The patient was satisfied with the care received and felt comfortable with the discharge plan and treatment plan. The patient agrees to follow up with the primary care physician within 24-72 hours. Discharge - Discharge Information Problems reviewed: Yes Clinical Impression/Diagnosis: Dysuria Urinary tract infection Qualifiers: Urinary tract infection type: acute cystitis Hematuria presence: without hematuria Qualified Code(s): N30.00 - Acute cystitis without hematuria Condition: Stable Disposition: HOME - Additional Discharge Information Prescriptions: Sulfamethoxazole/Trimethoprim [Bactrim Ds -] 1 tab PO BID 14 Days #28 tablet Phenazopyridine HCl [Pyridium] 200 mg PO TID 2 Days #6 tablet - Follow up/Referral Referrals: ON STAFF,NOT [Primary Care Provider] - - Patient Discharge Instructions Patient Printed Discharge Instructions: DI for Urinary Tract Infection (UTI) Additional Instructions: Usted fue evaluada por dolor urinario. Romo orine muestra infeccion. Por favor saida el antibiotico dos veces al eleni, por dos semanas, con comida. Ve a romo doctor de cabezera lo mas pronto posible, en 2-3 greene. Regresa a la edvin de urgencias si empiezas a tener fiebres altas, dolor de tr, nausea, o vomitos. - Post Discharge Activity
[2020-02-23 18:44] LABS: URINE BACTERIA 2.8 /uL (0-1359)
== END 2020-02-23 09:36 | disposition home or self-care (01) ==
LOC: SUPCPDRO 07:29 → JER 07:29
DX: N30.00 Acute cystitis without hematuria (principal); R30.0 Dysuria
CPT/HCPCS: 81003; 87086; 99282-25

== ENCOUNTER 2020-03-11 12:31 | Emergency (ER) | payer OTHER ==
--- NOTE | 2020-03-11 13:00 | PDOC ---
Rapid Medical Evaluation Time Seen by Provider: 03/11/20 12:38 Medical Evaluation: Allergies Allergy/AdvReac Type Severity Reaction Status Date / Time Penicillins Allergy Unknown Verified 02/23/20 07:34 03/11/20 12:59 I performed a brief in-person evaluation of this patient. Pt is an 89 y/o female with h/o HTN who presents to the ED with complaint of 3 days of constipation. She has not had a BM in 3 days. She denies any abdominal pain. She denies fevers or chills. Pt is requesting an enema. Pertinent physical exam findings: No reproducible abd pain, speaking in full sentences. I have ordered the following: abd xr Patient to proceed to ED for further evaluation. Discharge Disposition - Diagnosis Constipation - Referrals - Patient Instructions - Post Discharge Activity
--- OUTSIDE RECORDS SUMMARY | 2020-03-11 13:07 | XMS ---
:1930 [facility] Organization [facility] Care Team Providers Name Role Phone ALESSANDRA HEREDIA Unavailable Unavailable Na, Lilo MANDUJANO Unavailable Unavailable ED STAFF PHYSICIANHARRIETT Unavailable Unavailable ELIZABETH WYATT Unavailable Unavailable HERNANDEZ, HANANH A DO Unavailable HERNANDEZ, A DO Unavailable HERNANDEZ, A DO Unavailable HERNANDEZ, A DO Unavailable HERNANDEZ, A DO Unavailable HERNANDEZ, A DO Unavailable DAVID, Ramone DO Unavailable DAVID, A DO Unavailable ED STAFF PHYSICIAN Unavailable Unavailable ED STAFF PHYSICIAN Unavailable Unavailable ZUNASSIGNED Unavailable Unavailable ED STAFF PHYSICIAN Unavailable Unavailable [...] is protected by Article 27-F of the [facility] Public Health law. If you continue you may haveaccess to information: Regarding HIV / AIDS; Provided by facilities licensed or operated by the [facility] Office of Mental Health; or Provided by the [facility] Office for People With Developmental Disabilities. If such information is present, then the following [facility] mandated warning applies: This information [...] law may result in a fine or longterm sentence or both. A general authorization for the release of medical or other information is NOT sufficient authorization for further disclosure. Allergies and Adverse Reactions Type Description Substance Reaction Status Data Source(s ) Drug allergy No Known Allergies No Known NO KNOWN ALLERG [facility]erg[facility] Hospital Encounters Encounter Providers Location Date Indications Data Source(s ) Emergency Attender: ED STAFF H 02/28/2020 [facility] PHYSICIANAttender: 06:10:00 AM Medic al Center STAFF ED STAFF EDT - PHYSICIANAdmitter: ED 02/28/2020 STAFF 05:30:00 PM PHYSICIANReferrer: EDT ZUNASSIGNED Patient discharged. Emergency Attender: Lilo Louis 02/25/2020 08:57:00 KIDNEY PAIN [facility] MD AM EDT - 02/25/2020 [facility]R-AUTO [facility] 11:33:00 AM EDT KIDNEY PAIN ARR-AUTO Patient discharged. Emergency Attender: HARRIETT ED STAFF H 02/04/2020 06:52:00 AM [facility] PHYSICIANAttender: STAFF ED EDT - 02/04/2020 [facility] STAFF PHYSICIANAdmitter: 10:32:00 AM EDT HARRIETT ED STAFF PHYSICIAN Patient discharged. Emergency Attender: CONOR PERDOMO H 01/31/2020 08:09 :00 AM [facility] ED STAFF EDT - 01/31/2020 [facility] PHYSICIANAdmitter: CONOR 10:39:00 AM EDT SHERINE PERDOMO CReferrer: STAFF ED STAFF PHYSICIAN Patient discharged. Outpatient Attender: ALESSANDRA Diez 01/20/2020 01:48:00 PM [facility] PAAdmitter: GILChildren's National HospitalZECHODZMARTIN LUTHER KING JR. - HARBOR HOSPITALReferrer: HANNAH HERNANDEZ DO Emergency Attender: ED STAFF H 11/29/2019 08:16:00 AM [facility] PHYSICIANAttender: ELIZABETH BERRYT - 11/29/2019 [facility] OULATOSHA JOHNSON AAttender: 12:25:00 PM EDT STAFF ED STAFF PHYSICIANAdmitter: ED STAFF PHYSICIAN Patient discharged. [facility]: CONOR Diez 09/10/2019 11:01:00 AM [facility] CAttender: STAFF EDT - 09/10/2019 06:09:0 0 Center ED STAFF PM EDT PHYSICIANAdmitter: CONOR Aldirdge Patient discharged. Emergency Attender: PETRA ED STAFF H 05/04/2019 01:53:00 PM [facility] PHYSICIANAttender: STAFF ED EST - 05/04/2019 [facility] STAFF PHYSICIANAdmitter: PETRA 07:53:00 PM EST ED STAFF PHYSICIAN Patient discharged. Outpatient [facility] Care 02/12/2019 12:00:00 AM eCW3 ([facility] A28 EDT - 02/12/2019 12:00:00 Health Care) AM EDT Outpatient [facility] 02/05/2019 12:00:00 AM eCW3 ([facility] A28 EDT - 02/05/2019 12:00:00 Health Care) AM EDT Medications Medication Brand Start Product Dose Route Administrative Pharmacy [facility] Indications Reaction Description Data Name Date Form Instructions Instructions Source(s) celecoxib Celeco 02/24/ CAPSULE 100 ORAL active W bay[place] 100 MG Oral xib 2020 mg [place] Capsule 11:18: Hospital [Celebrex] 00 AM Celecoxib EDT Vitamin B Vitami 10/01/ active Vitamin B [...] B-12 50 MCG EDT Care) Trazodone Trazod .0 active Trazodone eCW3 Hydrochlori one 2019 {tabl HCl 50 MG (H udson de 50 MG HCl 50 12:00: et_at [facility] Oral Tablet MG 00 AM [facility] Trazodone EST ime_a Care) HCl 50 MG s_nee ded} Trazodone Trazod .0 active Trazodone eCW3 Hydrochlori one 2019 {tabl HCl 50 MG (H udson de 50 MG HCl 50 12:00: et_at [facility] Oral Tablet MG 00 AM [facility] Health Trazodone EST ime_a Care) HCl 50 MG s_nee ded} Insurance Providers Payer name Policy type Policy ID Covered Covered democrat's Policy P jamison / Coverage democrat ID relationship to Chavez Inf ormation type chavez MEDICAID [id number] SP [id number] MEDICARE [id number] SP [id number] 94 4 MEDICAID [id number] PT [id number] MEDICARE [id number] PT [id number] 94 4 M [id number] 01 [id number] 94 4 W [id number] 01 [id number] MEDICARE [id number] PT [id number] M M [id number] 01 [id number] M MEDICAID [id number] SP [id number] MEDICAID [id number] SP [id number] MEDICARE [id number] SP [id number] 94 4 Problems, Conditions, and Diagnoses Code Display Name Description Problem Type Effective Data Sour ce(s) Dates M25.512 Acute pain of left Acute pain of left Problem 0 eCW3 ([place] shoulder shoulder 12:00:00 AM [facility] EDT Care) R20.2 Paresthesia Paresthesia Problem 11/01/2019 eCW3 ([place] 12:00:00 AM [facility] EDT Care) M25.552 Left hip pain Left hip pain Problem 11/01/2019 eCW3 (Hu dson 12:00:00 AM [facility] EDT Care) E55.9 Vitamin D Vitamin D Problem 10/02/2019 eCW3 ([place] deficiency deficiency 12:00:00 AM [facility] EDT Care) N32.81 Overactive bladder Overactive bladder Problem 0 eCW3 ([place] 12:00:00 AM [facility] EDT Care) E55.9 Vitamin D Vitamin D Problem 10/02/2019 eCW3 ([place] deficiency deficiency 12:00:00 AM [facility] EDT Care) N32.81 Overactive bladder Overactive bladder Problem 0 eCW3 ([place] 12:00:00 AM [facility] EDT Care) 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 06/21/2019 eCW3 ([place] other mental other mental 12:00:00 AM [facility] lth disorder disorder EST Care) F99 Mental disorder, Mental disorder, Problem 06/21/2019 eC W3 ([place] not otherwise not otherwise 12:00:00 AM [facility] ealth specified specified EST Care) F99 Mental disorder, Mental disorder, Problem 06/21/2019 eC W3 ([place] not otherwise not otherwise 12:00:00 AM [facility] ealth specified specified EST Care) E66.9 Obesity (BMI Obesity (BMI Problem 02/12/2019 eCW3 ([place] 30-39.9) 30-39.9) 12:00:00 AM [facility] EDT Care) E66.9 Obesity (BMI Obesity (BMI Problem 02/12/2019 eCW3 ([place] 30-39.9) 30-39.9) 12:00:00 AM [facility] EDT Care) I10 Essential ESSENTIAL Diagnosis 02/28/2020 [facility] (primary) (PRIMARY) 06:10:00 AM Medical Sheri r hypertension HYPERTENSION EDT R10.9 Unspecified UNSPECIFIED Diagnosis 02/28/2020 [place] [facility] abdominal pain ABDOMINAL PAIN 06:10:00 AM Medic al Center EDT N76.0 Acute vaginitis ACUTE VAGINITIS Diagnosis 02/04/2020 [facility] 06:52:00 AM Medical Cent[facility] r EDT R30.0 Dysuria DYSURIA Diagnosis 02/04/2020 [facility] 06:52:00 AM Medical Cente r EDT R30.9 Painful PAINFUL Diagnosis 02/04/2020 [facility] micturition, MICTURITION, 06:52:00 AM Medical C enter unspecified UNSPECIFIED EDT M54.16 Radiculopathy, RADICULOPATHY, Diagnosis 01/31/2020 [facility] lumbar region LUMBAR REGION 08:09:00 AM Medical Center EDT B37.2 Candidiasis of CANDIDIASIS OF Diagnosis 01/31/2020 [facility] skin and nail SKIN AND NAIL 08:09:00 AM Medical Center EDT M25.562 Pain in left knee PAIN IN LEFT KNEE Diagnosis 01/20/2020 [facility] 01:48:00 PM Medical Cente r EDT M25.561 Pain in right knee PAIN IN RIGHT KNEE Diagnosis 0 [facility] 01:48:00 PM Medical Cente r EDT M25.552 Pain in left hip PAIN IN LEFT HIP Diagnosis 01/20/2020 [facility] 01:48:00 PM Medical Cente r EDT M16.12 Unilateral primary UNILATERAL PRIMARY Diagnosis 0 [facility] osteoarthritis, OSTEOARTHRITIS, 08:16:00 AM Med ical Center left hip LEFT HIP EDT M19.012 Primary PRIMARY Diagnosis 11/29/2019 [facility] osteoarthritis, OSTEOARTHRITIS, 08:16:00 AM Med ical Center left shoulder LEFT SHOULDER EDT G62.9 Polyneuropathy, POLYNEUROPATHY, Diagnosis 11/29/2019 [facility] unspecified UNSPECIFIED 08:16:[address] EDT R20.0 Anesthesia of skin ANESTHESIA OF SKIN Diagnosis 0 [facility] 08:16:00 AM Medical Cente r EDT G89.29 Other chronic pain OTHER CHRONIC PAIN Diagnosis 0 [facility] 11:01:00 AM Medical Cente r EDT M25.559 Pain in PAIN IN Diagnosis 09/10/2019 [facility] unspecified hip UNSPECIFIED HIP 11:01:00 AM [facility] EDT E11.9 Type 2 diabetes TYPE 2 DIABETES Diagnosis 05/04/2019 [facility] mellitus without MELLITUS WITHOUT 01:53:00 PM edical Center complications COMPLICATIONS EST R42 Dizziness and DIZZINESS AND Diagnosis 05/04/2019 [facility] giddiness GIDDINESS 01:53:00 PM Medical Cente r EST Results ID Date Data Source Urinalysis.[id number] 02/28/2020 08:33:[address] [facility] 0 Name Value Range Interpretation Description Data Sup porting Code Source(s) Document(s ) Glucose NEGATIVE <content [facility] [Mass/volume] styleCode="[facility] in Urine by d">Urine Medical Test strip Glucose Center </content>NEGA TIVE MG/DL<content styleCode="Cheri lics"> (NEGATIVE MG/DL)</conten t> Color of Urine YELLOW <content [facility] styleCode="Ross [facility]ci d">Color, Medical Urine Center </content>YELL OW <content styleCode="Cheri lics"> (YELLOW )</content> UNK CLEAR <content [facility] styleCode="[facility] d">Urine Medical Clarity Center </content>JEOVANNY R <content styleCode="Cheri lics"> (CLEAR )</content> UNK NEGATIVE <content [facility] styleCode="[facility] d">Urine Medical Bilirubin Center </content>NEGA TIVE <content styleCode="Cheri lics"> (NEGATIVE )</content> Specific 1.015-1.02 <content [facility] gravity of 5 styleCode="[facility] Urine by Test d">Urine Medical strip Specific Center Erwinna </content>1.02 0 <content styleCode="Cheri lics"> (1.015-1.025 )</content> Ketones NEGATIVE <content [facility] [Mass/volume] styleCode="[facility] in Urine by d">Urine Medical Test strip Ketone Center </content>NEGA TIVE MG/DL<content styleCode="Cheri lics"> (NEGATIVE MG/DL)</conten t> Hemoglobin NEGATIVE <content [facility] [Presence] in styleCode="[facility] Urine by Test d">Urine Blood Medical strip </content>NEGA Center TIVE <content styleCode="Cheri lics"> (NEGATIVE )</content> Protein NEGATIVE <content [facility] [Mass/volume] styleCode="[facility] in Urine by d">Urine Medical Test strip Protein Center </content>NEGA TIVE MG/DL<content styleCode="Cheri lics"> (NEGATIVE MG/DL)</conten t> pH of Urine by 4.5-8.0 <content [facility] Test strip styleCode="Ross [facility]ci d">Urine pH Medical </content>6.5 Center <content styleCode="Cheri lics"> (4.5-8.0 )</content> Nitrite NEGATIVE <content [facility] [Presence] in styleCode="Ross [facility] Urine by Test d">Urine Medical strip Nitrite Center </content>NEGA TIVE <content styleCode="Cehri lics"> (NEGATIVE )</content> Leukocyte NEGATIVE <content [facility] esterase styleCode="Ross [facility] [Presence] in d">Urine Medical Urine by Test Leukocyte Center strip </content>NEGA TIVE <content styleCode="Cheri lics"> (NEGATIVE )</content> Urobilinogen 0.2-1.0 <content [facility] [Units/volume] styleCode="[facility] in Urine by d">Urine Medical Test strip Urobilinogen Center </content>0.2 MG/DL<content styleCode="Cheri lics"> (0.2-1.0 MG/DL)</conten t> ID Date Data Source Coagulation 02/28/2020 08:30:00 AM [facility] Center Rout.[id number] EDT Name Value Range Interpretation Description Data Sup porting Code Source(s) Document(s ) UNK 9.0-13.0 <content [facility] styleCode="Bold" [facility] >Protime Medical </content>11.6 Center SEC<content styleCode="Itali cs"> (9.0-13.0 SEC)</content> aPTT in 25.1-36. <content [facility] Platelet poor 5 styleCode="Bold" [facility] plasma by >Partial Medical Coagulation Thromboplastin Center assay Time </content>29.1 SEC<content styleCode="Itali cs"> (25.1-36.5 SEC)</content> INR in 0.80-1.2 <content [facility] Platelet poor 0 styleCode="Bold" [facility] plasma by >INR Medical Coagulation </content>1.05 Center assay #<content styleCode="Itali cs"> (0.80-1.20 #)</content> ID Date Data Source Liver 02/28/2020 07:40:00 AM EDT [facility] Profile.[id number] Name Value Range Interpretation Description Data Sup porting Code Source(s) Document(s ) Aspartate 14-36 <content [facility] aminotransferase styleCode="Bold"> [facility] hs [Enzymatic Aspartate Medical activity/volume] Aminotransferase Center in Serum or Plasma (AST) </content>25 IU/L<content styleCode="Italic s"> (14-36 IU/L)</content> Alanine 7-30 <content [facility] aminotransferase styleCode="Bold"> [facility] hs [Enzymatic Alanine Medical activity/volume] Aminotransferase Center in Serum or Plasma (ALT) </content>14 IU/L<content styleCode="Italic s"> (7-30 IU/L)</content> Albumin 3.5-5.0 <content [facility] [Mass/volume] in styleCode="Bold"> [place] hs Serum or Plasma Albumin Medical </content>4.0 Center G/DL<content styleCode="Italic s"> (3.5-5.0 G/DL)</content> Bilirubin.total 0.2-1.3 <content [facility] [Mass/volume] in styleCode="Bold"> [place] hs Serum or Plasma Bilirubin Total Medical </content>0.9 Center MG/DL<content styleCode="Italic s"> (0.2-1.3 MG/DL)</content> Alkaline 38-126 <content [facility] phosphatase styleCode="Bold"> [facility] [Enzymatic Alkaline Medical activity/volume] Phosphatase (ALP) Cente r in Serum or Plasma </content>68 IU/L<content styleCode="Italic s"> (38-126 IU/L)</content> ID Date Data Source HematologyRou.[id number] 02/28/2020 07:40:[address] [facility] 0400 Name Value Range Interpretation Description Data Sup porting Code Source(s) Document(s ) Hemoglobin 12.3-16. <content [facility] [Mass/volume] in 0 styleCode="Bold [facility] Blood ">Hemoglobin Medical </content>13.5 Center G/DL<content styleCode="Ital ics"> (12.3-16.0 G/DL)</content> Leukocytes 4.4-11.0 <content [facility] [#/volume] in styleCode="Bold [facility] Blood by ">White Blood Medical Automated count Cell Count Center </content>8.97 KCUMM<content styleCode="Ital ics"> (4.4-11.0 KCUMM)</content > Erythrocytes 4.0-5.1 <content [facility] [#/volume] in styleCode="Bold [facility] Blood by ">Red Blood Medical Automated count Cell Count Center </content>4.09 MCUMM<content styleCode="Ital ics"> (4.0-5.1 MCUMM)</content > Erythrocyte mean 80.0-100 <content [facility] corpuscular .0 styleCode="Bold [facility] volume [Entitic ">Mean Medical volume] by Corpuscular Center Automated count Volume </content>98.5 FL<content styleCode="Ital ics"> (80.0-100.0 FL)</content> Hematocrit 36.0-46. <content [facility] [Volume 0 styleCode="Bold [facility] Fraction] of ">Hematocrit Medical Blood by </content>40.3 Center Automated count %<content styleCode="Ital ics"> (36.0-46.0 %)</content> Erythrocyte 11.5-14. <content [facility] distribution 5 styleCode="Bold [facility] width [Ratio] by ">Red Cell Medical Automated count Distribution Center Width </content>13.7 %<content styleCode="Ital ics"> (11.5-14.5 %)</content> Platelets 130-400 <content [facility] [#/volume] in styleCode="Bold [facility] Blood by ">Platelet Medical Automated count Count Center </content>240 KCUMM<content styleCode="Ital ics"> (130-400 KCUMM)</content > Erythrocyte mean 32.0-37. <content [facility] corpuscular 0 styleCode="Bold [facility] hemoglobin ">Mean Corpus. Medical concentration Hgb Center [Mass/volume] by Concentration Automated count (MCHC) </content>33.5 G/DL<content styleCode="Ital ics"> (32.0-37.0 G/DL)</content> Erythrocyte mean 26.0-34. <content [facility] corpuscular 0 styleCode="Bold [facility] hemoglobin ">Mean Medical [Entitic mass] Corposcular Center by Automated Hemoglobin count </content>33.0 PG<content styleCode="Ital ics"> (26.0-34.0 PG)</content> Platelet mean 8.0-11.0 <content [facility] volume [Entitic styleCode="Bold [facility] volume] in Blood ">Mean Platelet Medical by Automated Volume Center count </content>10.3 FL<content styleCode="Ital ics"> (8.0-11.0 FL)</content> UNK 0.0 <content [facility] styleCode="Bold [facility] ">Nucleated Red Medical Blood Cell Center Count </content>0.00 KCUMM<content styleCode="Ital ics"> (0.0 KCUMM)</content > UNK 0 <content [facility] styleCode="Bold [facility] ">Nucleated Red Medical Blood Cell Center </content>0.0 /100<content styleCode="Ital ics"> (0 /100)</content> ID Date Data Source GFR(Creatinine).[id number] 02/28/2020 07:40:[address] [facility] 0-0400 Name Value Range Interpretation Code Description Data [place] rce(s) Supporting Document(s ) UNK > 60 <content [facility] styleCode="Bold"> Medical Cent er EGFR </content>100 GFR<content styleCode="Italic s"> (> 60 GFR)</content> ID Date Data Source CHMROUTINECCDA.[id number] 02/28/2020 07:40:[address] [facility] -0400 Name Value Range Interpretation Description Data Sup porting Code Source(s) Document(s ) Lipase 23-300 <content [facility] [Enzymatic styleCode="Bold Medical activity/vo ">Lipase Center lume] in </content>95 Serum or IU/L<content Plasma styleCode="Ital ics"> (23-300 IU/L)</content> Lactate 0.7-2.0 <content [facility] [Mass/volum styleCode="Bold Medical e] in Serum ">Lactic Acid Center or Plasma </content>1.2 MMOLL<content styleCode="Ital ics"> (0.7-2.0 MMOLL)</content > Protein 6.3-8.2 <content [facility] [Mass/volum styleCode="Bold Medical e] in Serum ">Total Protein Center or Plasma </content>7.0 G/DL<content styleCode="Ital ics"> (6.3-8.2 G/DL)</content> UNK 2.3-3.5 <content [facility] styleCode="Bold Medical ">Globulin Center </content>3.0 G/DL<content styleCode="Ital ics"> (2.3-3.5 G/DL)</content> UNK >= 1.0 <content [facility] styleCode="Bold Medical ">AG Ratio Center </content>1.3 <content styleCode="Ital ics"> (>= 1.0 )</content> ID Date Data Source CardiacMarkers.[id number] 02/28/2020 07:40:[address] [facility] -0400 Name Value Range Interpretation Description Data Sup porting Code Source(s) Document(s ) Troponin < 0.034 <content [facility] I.cardiac styleCode="Bold [facility] [Mass/volume ">Troponin I Medical ] in Serum </content>< Center or Plasma 0.012 NG/ML<content styleCode="Ital ics"> (< 0.034 NG/ML)</content > ID Date Data Source [id number] 02/28/2020 07:40:00 AM EDT [facility] Name Value Range Interpretation Description Data Sup porting Code Source(s) Document(s ) Potassium 3.5-5.3 <content [facility] [Moles/volume] in styleCode="Bold"> [facility] Serum or Plasma Potassium Medical </content>4.6 Center MEQ/L<content styleCode="Italic s"> (3.5-5.3 MEQ/L)</content> Sodium 137-145 Below low <content [facility] [Moles/volume] in normal styleCode="Bold"> [facility] Serum or Plasma Sodium Medical </content>132 Center MEQ/L L<content styleCode="Italic s"> (137-145 MEQ/L)</content> Chloride 98-107 <content [facility] [Moles/volume] in styleCode="Bold"> [facility] Serum or Plasma Chloride Medical </content>103 Center MEQ/L<content styleCode="Italic s"> (98-107 MEQ/L)</content> Glucose 74-106 Above high <content [facility] [Mass/volume] in normal styleCode="Bold"> [facility] hs Serum or Plasma Glucose Medical </content>111 Center MG/DL H<content styleCode="Italic s"> (74-106 MG/DL)</content> Carbon dioxide, 22-30 <content [facility] total styleCode="Bold"> [facility] [Moles/volume] in Carbon Dioxide Medical Serum or Plasma </content>24 Center MEQ/L<content styleCode="Italic s"> (22-30 MEQ/L)</content> UNK 7-17 <content [facility] styleCode="Bold"> [facility] BUN </content>17 Medical MG/DL<content Center styleCode="Italic s"> (7-17 MG/DL)</content> Creatinine 0.5-1.3 <content [facility] [Mass/volume] in styleCode="Bold"> [facility] hs Serum or Plasma Creatinine Medical </content>0.6 Center MG/DL<content styleCode="Italic s"> (0.5-1.3 MG/DL)</content> UNK > 60 <content [facility] styleCode="Bold"> [facility] EGFR Medical </content>100 Center GFR<content styleCode="Italic s"> (> 60 GFR)</content> Alanine 7-30 <content [facility] aminotransferase styleCode="Bold"> [facility] hs [Enzymatic Alanine Medical activity/volume] Aminotransferase Center in Serum or Plasma (ALT) </content>14 IU/L<content styleCode="Italic s"> (7-30 IU/L)</content> Calcium 8.4-10. <content [facility] [Mass/volume] in 2 styleCode="Bold"> [facility] hs Serum or Plasma Calcium Medical </content>9.5 Center MG/DL<content styleCode="Italic s"> (8.4-10.2 MG/DL)</content> Aspartate 14-36 <content [facility] aminotransferase styleCode="Bold"> [facility] hs [Enzymatic Aspartate Medical activity/volume] Aminotransferase Center in Serum or Plasma (AST) </content>25 IU/L<content styleCode="Italic s"> (14-36 IU/L)</content> Alkaline 38-126 <content [facility] phosphatase styleCode="Bold"> [facility] [Enzymatic Alkaline Medical activity/volume] Phosphatase (ALP) Cente r in Serum or Plasma </content>68 IU/L<content styleCode="Italic s"> (38-126 IU/L)</content> Albumin 3.5-5.0 <content [facility] [Mass/volume] in styleCode="Bold"> [facility] hs Serum or Plasma Albumin Medical </content>4.0 Center G/DL<content styleCode="Italic s"> (3.5-5.0 G/DL)</content> Bilirubin.total 0.2-1.3 <content [facility] [Mass/volume] in styleCode="Bold"> [facility] hs Serum or Plasma Bilirubin Total Medical </content>0.9 Center MG/DL<content styleCode="Italic s"> (0.2-1.3 MG/DL)</content> ID Date Data Source [id number] [facility]2020 [facility] Value Range Interpretation Description Data Sup porting Code Source(s) Document(s ) Lactate 1.5 [facility] [Moles/volum mmol/L Hospital e] in Serum or Plasma ID Date Data Source [id number] 02/25/2020 09:22:00 AM [facility] Value Range Interpretation Description Data Sup porting Code Source(s) Document(s ) Aspartate 22 U/L White aminotransferase [place] [Enzymatic Hospital activity/volume] in Serum or Plasma ID Date Data Source [id number] 02/25/2020 09:22:00 AM [facility] Value Range Interpretation Description Data Sup porting Code Source(s) Document(s ) Alanine 13 U/L White aminotransferase [place] [Enzymatic Hospital activity/volume] in Serum or Plasma ID Date Data Source [id number] 02/25/2020 09:22:00 AM [facility] Value Range Interpretation Description Data Sup porting Code Source(s) Document(s ) Alkaline 67 U/L [facility] phosphatase [facility] [Enzymatic activity/volume ] in Serum or Plasma ID Date Data Source [id number] 02/25/2020 09:22:00 AM EDT [facility] Name Value Range Interpretation Description Data Sup porting Code Source(s) Document(s ) Bilirubin.t 0.8 mg/dL [facility] [Mass/volum e] in Serum or Plasma ID Date Data Source [id number] 02/25/2020 09:22:00 AM EDT [facility] Name Value Range Interpretation Code Description Data Carolina rce(s) Supporting Document(s ) [facility] in Serum or Plasma ID Date Data Source [id number] 02/25/2020 09:22:00 AM EDT [facility] Value Range Interpretation Description Data Sup porting Code Source(s) Document(s ) Albumin 4.3 g/dL [facility] [Mass/volume Hospital ] in Serum or Plasma ID Date Data Source [id number] 02/25/2020 09:22:00 AM EDT [facility] Name Value Range Interpretation Description Data Sup porting Code Source(s) Document(s ) Protein 6.8 g/dL [facility] [Mass/volume Hospital ] in Serum or Plasma ID Date Data Source [id number] 02/25/2020 09:22:00 AM EDT [facility] Name Value Range Interpretation Description Data Sup porting Code Source(s) Document(s ) Calcium 9.2 mg/dL [facility] [Mass/volume Hospital ] in Serum or Plasma ID Date Data Source [id number] 02/25/2020 09:22:00 AM EDT [facility] Name Value Range Interpretation Code Description Data Carolina rce(s) Supporting Document(s ) Urea 18.8 [facility] nitrogen/Cre Hospital atinine [Mass Ratio] in Serum or Plasma ID Date Data Source [id number] 02/25/2020 09:22:00 AM EDT [facility] Name Value Range Interpretation Description Data Sup porting Code Source(s) Document(s ) Creatinine 0.8 mg/dL [facility] [Mass/volume] Hospital in Serum or Plasma ID Date Data Source [id number] 02/25/2020 09:22:00 AM EDT [facility] Name Value Range Interpretation Description Data Sup porting Code Source(s) Document(s ) Urea 15 mg/dL [facility] nitrogen Hospital [Mass/volume ] in Serum or Plasma ID Date Data Source [id number] 02/[facility] Interpretation Code Description Data Carolina rce(s) Supporting Document(s ) Anion gap in 17 [facility] Serum or [facility] Plasma ID Date Data Source [id number] 02/25/2020 09:22:00 AM EDT [facility] Value Range Interpretation Description Data Sup porting Code Source(s) Document(s ) Carbon 21 mmol/L [facility] dioxide, Hospital total [Moles/volu me] in Serum or Plasma ID Date Data Source [id number] 02/25/2020 09:22:00 AM EDT [facility] Name Value Range Interpretation Description Data Sup porting Code Source(s) Document(s ) Chloride 102 [facility] [Moles/volum mmol/L Hospital e] in Serum or Plasma ID Date Data Source [id number] 02/25/2020 [facility] Value Range Interpretation Description Data Sup porting Code Source(s) Document(s ) Potassium 4.5 [facility] [Moles/volume mmol/L Hospital ] in Serum or Plasma ID Date Data Source [id number] 02/[facility]/2020 [facility] Value Range Interpretation Description Data Sup porting Code Source(s) Document(s ) Sodium 135 mmol/L [facility] [Moles/volu Hospital ca] in Serum or Plasma ID Date Data Source [id number] 02/25/2020 09[facility] Value Range Interpretation Description Data Sup porting Code Source(s) Document(s ) Glucose 102 mg/dL [facility] [Mass[facility]volume Hospital ] in Serum or Plasma ID Date Data Source [id number] 02/25/2020 09:22:00 AM [facility] Value Range Interpretation Description Data Sup porting Code Source(s) Document(s ) Epithelial 4+ [facility] cells.squamous Hospital [#/area] in Urine sediment by Microscopy high power field ID Date Data Source [id number] 02/25/2020 09:22:00 AM [facility] Value Range Interpretation Description Data Sup porting Code Source(s) Document(s ) Bacteria OCCASIONAL [facility] [#/area] in Hospital Urine sediment by Microscopy high power field ID Date Data Source [id number] 02/25/2020 09:22:00 AM [facility] Value Range Interpretation Description Data Sup porting Code Source(s) Document(s ) Erythrocytes NEGATIVE White [#/area] in /[HPF] Rye Urine sediment Hospital by Microscopy high power field ID Date Data Source [id number] 02/25/2020 09:22:00 AM [facility] Value Range Interpretation Description Data Sup porting Code Source(s) Document(s ) Leukocytes 3-5 [facility] [#/area] in /[HPF] Hospital Urine sediment by Microscopy high power field ID Date Data Source [id number] 02/25/2020 09:22:00 AM EDT [facility] Name Value Range Interpretation Code Description Data Supporting Source(s) Document(s ) Leukocyte 1+ [facility] esterase Hospital [Presence] in Urine by Test strip ID Date Data Source [id number] 02/25/2020 09:22:00 AM EDT [facility] Name Value Range Interpretation Description Data Sup porting Code Source(s) Document(s ) URINE POSITIVE [facility] NITRITES Hospital ID Date Data Source [id number] 02/25/2020 09:22:00 AM EDT [facility] Name Value Range Interpretation Description Data Sup porting Code Source(s) Document(s ) Erythrocytes NEGATIVE [facility] [#/volume] in Hospital Urine by Test strip ID Date Data Source [id number] 02/25/2020 09:22:00 AM EDT [facility] Name Value Range Interpretation Code Description Data Carolina rce(s) Supporting Document(s ) Bilirubin. NEGATIVE [facility] total Hospital [Presence] in Urine by Test strip ID Date Data Source [id number] 02/25/2020 09:22:00 AM EDT [facility] Name Value Range Interpretation Description Data Sup porting Code Source(s) Document(s ) Urobilinogen >= 8.0 [facility] [Units/volume] mg/dL Hospital in Urine by Test strip ID Date Data Source [id number] 02/25/2020 09:22:00 AM EDT [facility] Name Value Range Interpretation Code Description Data Carolina rce(s) Supporting Document(s ) Ketones 1+ [facility] [Mass/volume Hospital ] in Urine by Test strip ID Date Data Source [id number] 02/25/2020 09:22:00 AM EDT [facility] Name Value Range Interpretation Code Description Data Carolina rce(s) Supporting Document(s ) Glucose 1+ [facility] [Mass/volume Hospital ] in Urine by Test strip ID Date Data Source [id number] 02/25/2020 09:22:00 AM [facility] Name Value Range Interpretation Code Description Data Carolina rce(s) Supporting Document(s ) Protein 2+ [facility] [Presence] Hospital in Urine by Test strip ID Date Data Source [id number] [facility] Interpretation Code Description Data Carolina rce(s) Supporting Document(s ) pH of Urine 6.5 [facility] by Test Hospital strip ID Date Data Source [id number] 02/25/2020 09:22:00 AM [facility] Name Value Range Interpretation Code Description Data Supporting Source(s) Document(s ) Specific 1.020 [facility] gravity of Hospital Urine by Test strip ID Date Data Source [id number] 02/25/2020 09:22:00 AM [facility] Name Value Range Interpretation Description Data Sup porting Code Source(s) Document(s ) Clarity in Urine SL CLOUDY [facility] by Refractometry Hospital automated ID Date Data Source [id number] 02/25/2020 09:22:00 AM [facility] --- 02/25/20 1013 ---URINE COLOR previo usly reported as: OTHER Name Value Range Interpretation Code Description Data Carolina rce(s) Supporting Document(s ) Color of RED [facility] Urine Hospital ID Date Data Source [id number] 02/25/2020 09:22:00 AM [facility] Name Value Range Interpretation Code Description Data Supporting Source(s) Document(s ) NUCLEATED RBCS 0.0 % [facility] (AUTO Hospital DIFF%)DIS ID Date Data Source [id number] 02/25/2020 09:22:00 AM EDT [facility] Value Range Interpretation Description Data Sup porting Code Source(s) Document(s ) Differential AUTOMATED [facility] cell count [facility] method - Blood ID Date Data Source [id number] 02/25/2020 09:22:00 AM EDT [facility] Name Value Range Interpretation Description Data Sup porting Code Source(s) Document(s ) Immature 0.03 [facility] granulocytes 10*3/uL Hospital [#/volume] in Blood by Automated count ID Date Data Source [id number] 02/25/2020 09:22:00 AM EDT [facility] Value Range Interpretation Description Data Sup porting Code Source(s) Document(s ) Basophils 0.06 [facility] [#/volume] in 10*3/uL Hospital Blood by Automated count ID Date Data Source [id number] 02/25/2020 09:22:00 AM EDT [facility] Name Value Range Interpretation Description Data Sup porting Code Source(s) Document(s ) Eosinophils 0.09 [facility] [#/volume] in 10*3/uL Hospital Blood by Automated count ID Date Data Source [id number] 02/25/2020 09:22:00 AM EDT [facility] Name Value Range Interpretation Description Data Sup porting Code Source(s) Document(s ) Monocytes 1.05 [facility] [#/volume] in 10*3/uL Hospital Blood by Automated count ID Date Data Source [id number] 02/25/2020 09:22:00 AM EDT [facility] Value Range Interpretation Description Data Sup porting Code Source(s) Document(s ) Lymphocytes 1.41 [facility] [#/volume] in 10*3/uL Hospital Blood by Automated count ID Date Data Source [id number] 02/25/2020 09:22:00 AM EDT [facility] Value Range Interpretation Description Data Sup porting Code Source(s) Document(s ) Neutrophils 5.03 [facility] [#/volume] in 10*3/uL Hospital Blood by Automated count ID Date Data Source [id number] 02/25/2020 09:22:00 AM EDT [facility] Value Range Interpretation Description Data Sup porting Code Source(s) Document(s ) Nucleated 0.0 % [facility] erythrocytes/10 Hospital 0 leukocytes [Ratio] in Blood by Automated count ID Date Data Source [id number] 02/25/2020 09:22:00 AM EDT [facility] Value Range Interpretation Description Data Sup porting Code Source(s) Document(s ) Immature 0.4 % [facility] granulocytes/10 Hospital 0 leukocytes in Blood by Automated count ID Date Data Source [id number] 02/25/2020 09:22:00 AM EDT [facility] Value Range Interpretation Description Data Sup porting Code Source(s) Document(s ) Basophils/100 0.8 % [facility] leukocytes in [facility] Blood by Automated count ID Date Data Source [id number] 02/25/2020 09:22:00 AM EDT [facility] Value Range Interpretation Description Data Sup porting Code Source(s) Document(s ) Eosinophils/100 1.2 % [facility] leukocytes in Hospital Blood by Automated count ID Date Data Source [id number] 02/25/2020 09:22:00 AM EDT [facility] Value Range Interpretation Description Data Sup porting Code Source(s) Document(s ) Monocytes/100 13.7 % [facility] leukocytes in Hospital Blood by Automated count ID Date Data Source [id number] 02/25/2020 09:22:00 AM EDT [facility] Name Value Range Interpretation Description Data Sup porting Code Source(s) Document(s ) Lymphocytes/10 18.4 % [facility] 0 leukocytes Hospital in Blood by Automated count ID Date Data Source [id number] 02/25/2020 09:22:00 AM EDT [facility] Name Value Range Interpretation Description Data Sup porting Code Source(s) Document(s ) Neutrophils/10 65.5 % [facility] 0 leukocytes Hospital in Blood by Automated count ID Date Data Source [id number] 02/25/2020 09:22:00 AM EDT [facility] Name Value Range Interpretation Description Data Sup porting Code Source(s) Document(s ) Platelet mean 10.7 fL [facility] volume Hospital [Entitic volume] in Blood by Automated count ID Date Data Source [id number] 02/25/2020 09:22:00 AM EDT [facility] Name Value Range Interpretation Description Data Sup porting Code Source(s) Document(s ) Platelets 243 [facility] [#/volume] in 10*3/uL Hospital Blood by Automated count ID Date Data Source [id number] 02/25/2020 09:22:00 AM EDT [facility] Value Range Interpretation Description Data Sup porting Code Source(s) Document(s ) Erythrocyte 13.9 % [facility] distribution Hospital width [Ratio] by Automated count ID Date Data Source [id number] 02/25/2020 09:22:00 AM EDT [facility] Value Range Interpretation Description Data Sup porting Code Source(s) Document(s ) Erythrocyte mean 34.0 [facility] corpuscular g/dL Hospital hemoglobin concentration [Mass/volume] by Automated count ID Date Data Source [id number] 02/25/2020 09:22:00 AM EDT [facility] Name Value Range Interpretation Description Data Sup porting Code Source(s) Document(s ) Erythrocyte 32.6 pg [facility] corpuscular hemoglobin [Entitic mass] by Automated count ID Date Data Source [id number] 02/25/2020 09:22:00 AM EDT [facility] Name Value Range Interpretation Description Data Sup porting Code Source(s) Document(s ) Erythrocyte 95.8 fL [facility] corpuscular volume [Entitic volume] by Automated count ID Date Data Source [id number] 02/25/2020 09:22:00 AM EDT [facility] Name Value Range Interpretation Description Data Sup porting Code Source(s) Document(s ) Hematocrit 41.5 % [facility] [Volume Hospital Fraction] of Blood by Automated count ID Date Data Source [id number] 02/25/2020 09:22:00 AM EDT [facility] Name Value Range Interpretation Description Data Sup porting Code Source(s) Document(s ) Hemoglobin 14.1 g/dL [facility] [Mass/volume] Hospital in Blood ID Date Data Source [id number] 02/25/2020 09:22:00 AM EDT [facility] Name Value Range Interpretation Description Data Sup porting Code Source(s) Document(s ) Erythrocytes 4.33 [facility] [#/volume] in 10*6/uL Hospital Blood by Automated count ID Date Data Source [id number] 02/25/2020 09:22:00 AM EDT [facility] Name Value Range Interpretation Description Data Sup porting Code Source(s) Document(s ) Leukocytes 7.7 [facility] [#/volume] in 10*3/uL Hospital Blood by Automated count ID Date Data Source [id number] 02/04/2020 07:50:[address] [facility] 0 Name Value Range Interpretation Description [...] by Test d">Urine Medical strip Specific Center [place] </content>1.02 5 <content styleCode="Cheri lics"> (1.015-1.025 )</content> [...] Test strip styleCode="Ross Marci d">Urine pH Medical </content>6.0 Center <content styleCode="Cheri lics"> (4.5-8.0 )</content> Protein NEGATIVE <content [facility] [Mass/volume] styleCode="Ross Covarrubias in Urine by d">Urine Medical Test strip Protein Center </content>NEGA TIVE MG/DL<content styleCode="Cheri lics"> (NEGATIVE MG/DL)</conten t> Hemoglobin NEGATIVE <content [facility] [Presence] in styleCode="Ross Covarrubias Urine by Test d">Urine Blood Medical strip </content>NEGA Center TIVE <content styleCode="Cheri lics"> (NEGATIVE )</content> Leukocyte NEGATIVE <content [facility] esterase styleCode="Ross Covarrubias [Presence] in d">Urine Medical Urine by Test Leukocyte Center strip </content>NEGA TIVE <content styleCode="Cheri lics"> (NEGATIVE )</content> Nitrite NEGATIVE <content [facility] [Presence] in styleCode="Ross Covarrubias Urine by Test d">Urine Medical strip Nitrite Center </content>NEGA TIVE <content styleCode="Cheri lics"> (NEGATIVE )</content> ID Date Data Source [id number] 09/18/2019 12:00:00 AM EDT [facility] Name Value Range Interpretation Code Description Data Carolina rce(s) Supporting Document(s ) 2019-nCoV [facility] RNA XXX LATRICE+probe- Imp This lab was ordered by [employer] [id number] and reported by [employer] ID Date Data Source Liver 05/04/2019 04:08:00 PM EST [facility] [id number] Name Value Range Interpretation Description Data Sup [...] (14-36 IU/L)</content> UNK 0.0-0.3 <content Saint styleCode="Bold"> [facility] Bilirubin, Direct Medical </content>< 0.2 Center MG/DL<content styleCode="Italic s"> (0.0-0.3 MG/DL)</content> Bilirubin.total 0.2-1.3 <content [facility] [Mass/volume] in styleCode="Bold"> [facility] Serum or Plasma Bilirubin Total Medical </content>0.5 Center MG/DL<content styleCode="Italic s"> (0.2-1.3 MG/DL)</content> Albumin 3.5-5.0 <content [facility] [Mass/volume] in styleCode="Bold"> [facility] hs Serum or Plasma Albumin Medical </content>3.9 Center G/DL<content styleCode="Italic s"> (3.5-5.0 G/DL)</content> ID Date Data Source [id number] 05/04/2019 04:08:00 PM REGI [facility] 0500 Name Value Range Interpretation Description Data Sup porting Code Source(s) Document(s ) Erythrocytes 4.0-5.1 <content [facility] [#/volume] in styleCode="Bold [facility] Blood by ">Red Blood Medical Automated count Cell Count Center </content>4.17 MCUMM<content styleCode="Ital ics"> (4.0-5.1 MCUMM)</content > Hemoglobin 12.3-16. <content [facility] [Mass/volume] in 0 styleCode="Bold [facility] Blood ">Hemoglobin Medical </content>13.7 Center G/DL<content styleCode="Ital [...] Basophils 0.0-1.0 <content [facility] [#/volume] in styleCode="Bold [facility] Blood by ">Basophil Medical Automated count </content>0.8 [...] (0.0 KCUMM)</content > ID Date Data Source GFR(Creatinine).[id number] 05/04/2019 04:08:00 PM EST [facility] 0-0500 Name Value Range Interpretation Code Description Data Carolina rce(s) Supporting Document(s ) UNK > 60 <content [facility] styleCode="Bold"> Medical Cent er EGFR </content>124 GFR<content styleCode="Italic s"> (> 60 GFR)</content> ID Date Data Source Coagulation 05/04/2019 04:08:00 PM [facility] Rout.[id number] EST Name Value Range Interpretation Description Data [...] cs"> (25.1-36.5 SEC)</content> ID Date Data Source [id number] 05/04/2019 04:08:00 PM EST [facility] Name Value Range Interpretation Description Data Sup porting Code Source(s) Document(s ) Natriuretic < 450 <content [facility] peptide.B styleCode="Ross Marci prohormone d">NT Pro BNP Medical N-Terminal </content>298 Center [Mass/volume] PG/ML<content in Serum or styleCode="Cheri Plasma lics"> (< 450 PG/ML)</conten t> ID Date Data Source [employer]Markers.[id number] 05/04/2019 04:08:[address] [facility] -0500 Name Value Range Interpretation Description Data Sup porting Code Source(s) Document(s ) Troponin < 0.034 <content [facility] I.cardiac styleCode="Bold [facility] [Mass/volume ">Troponin I Medical ] in Serum </content>< Center or Plasma 0.012 NG/ML<content styleCode="Ital ics"> (< 0.034 NG/ML)</content > Creatine 30-135 <content [facility] kinase styleCode="Bold Marci [Enzymatic ">CK Medical activity/vol </content>92 Center ume] in IU/L<content Serum or styleCode="Ital Plasma ics"> (30-135 IU/L)</content> ID Date Data Source [facility].[id number] 05/04/2019 04:08:00 PM EST [facility] Center Name Value Range Interpretation Description Data Sup porting Code Source(s) Document(s ) Potassium 3.5-5.3 <content [facility] [Moles/volume] in styleCode="Bold"> [facility] Serum or Plasma Potassium Medical </content>4.6 Center MEQ/L<content styleCode="Italic s"> (3.5-5.3 MEQ/L)</content> Chloride 98-107 <content [facility] [Moles/volume] in styleCode="Bold"> [facility] Serum or Plasma Chloride Medical </content>103 Center MEQ/L<content styleCode="Italic s"> (98-107 MEQ/L)</content> Sodium 137-145 Below low <content [facility] [Moles/volume] in normal styleCode="Bold"> [facility] Serum or Plasma Sodium Medical </content>135 Center [...] s"> (3.5-5.0 G/DL)</content> ID Date Data Source [id number] 05/04/2019 04:05:00 PM REGI [facility] 0 Name Value Range Interpretation Description Data Sup porting Code Source(s) Document(s ) Glucose NEGATIVE <content [facility] [Mass/volume] styleCode="Ross Clemonss in Urine by d">Urine Medical Test strip Glucose Center </content>NEGA TIVE MG/DL<content styleCode="Cheri lics"> (NEGATIVE MG/DL)</conten t> UNK CLEAR <content Saint styleCode="[facility] d">Urine Medical Clarity Center </content>JEOVANNY R <content styleCode="Cheri lics"> (CLEAR )</content> Color of Urine YELLOW <content Saint styleCode="[facility] d">Color, Medical Urine Center </content>YELL OW <content styleCode="Cheri lics"> (YELLOW )</content> UNK NEGATIVE <content [facility] styleCode="[facility] Marci d">Urine Medical Bilirubin Center </content>NEGA TIVE <content styleCode="Cheri lics"> (NEGATIVE )</content> Specific 1.015-1.02 <content [facility] gravity of 5 styleCode="Ross Clemonss Urine by Test d">Urine Medical strip Specific Center [place] </content>1.01 5 <content styleCode="Cheri lics"> (1.015-1.025 )</content> [...] Nitrite NEGATIVE <content [facility] [Presence] in styleCode="Ross Covarrubias Urine by Test d">Urine Medical strip Nitrite [...] Value Status Description Data Source(s ) Smoking 02/28/2020 Denies Ever completed Denies Ever Smoked [facility] 11:30:00 AM EDT Smoked [facility] C enter Smoking 02/28/2020 Denies Ever completed Denies Ever Smoked [facility] 06:24:00 AM EDT Smoked Medical C enter Smoking [...] 02:05:00 PM EST Sm[facility] C enter Vital Signs ID Date Data Source UNK Name Value Range Interpretation Code Description Data Source(s) Body temperature 36.394052 36.136212 [facility] Respiratory rate 18 /min 18 /min Health system Oxygen saturation 98 % 98 % [facility] by Pulse oximetry Heart rate 83 /min 83 /min [facility] Diastolic blood 77 mm[Hg] 77 mm[Hg] [facility] pressure [facility] Systolic blood 155 mm[Hg] 155 mm[Hg] [facility] pressure [facility] Center Body temperature 36.864944 36.867281 [facility] Respiratory rate 18 /min 18 /min Health system Oxygen saturation 96 % 96 % [facility] by Pulse oximetry Heart rate 100 /min 100 /min [facility] Diastolic blood 95 mm[Hg] 95 mm[Hg] [facility] pressure Medical Center Systolic blood 172 mm[Hg] 172 mm[Hg] [facility] pressure Medical Center Diastolic blood 77 mm[Hg] 77 mm[Hg] [facility] pressure Hospital Systolic blood 160 mm[Hg] 160 mm[Hg] [facility] ns pressure Hospital Respiratory rate 18 /min 18 /min [facility] Heart rate 80 /min 80 /min [facility] Body temperature 36.33027 36.96313 [facility] Body temperature 97.4 [degF] 97.4 [degF] [facility] Body mass index 32.0 kg/m2 32.0 kg/m2 White [facility] (BMI) [Ratio] Hospital Body weight 185.39 185.39 [lb_av] [facility] [lb_av] Hospital Body temperature 37.157644 37.959374 [facility] Respiratory rate 18 /min 18 /min Health system Oxygen saturation 98 % 98 % [facility] Arterial blood Medical Center by Pulse oximetry Heart rate 80 /min 80 /min [facility] Diastolic blood 90 mm[Hg] 90 mm[Hg] [facility] pressure Medical Center Systolic blood 186 mm[Hg] 186 mm[Hg] [facility] pressure Medical Center Body weight 81.234391 81.319300 kg [facility] Measured kg Medical Center Body temperature 36.666627 36.997910 [facility] Respiratory rate 19 /min 19 /min Health system Oxygen saturation 96 % 96 % [facility] Arterial blood [facility] Center by Pulse oximetry Heart rate 81 /min 81 /min [facility] Body height 149.868584 149.774428 cm [facility] Diastolic blood 89 mm[Hg] 89 mm[Hg] [facility] pressure Medical Center Systolic blood 179 mm[Hg] 179 mm[Hg] [facility] pressure Medical Center Body mass index 36.3 kg/m2 36.3 kg/m2 [facility] (BMI) [Ratio] Medical [facility] ter Body weight 75.560724 75.556168 kg [facility] Measured kg [facility] Body temperature 36.689378 36.678079 [facility] Respiratory rate 18 /min 18 /min Health system Oxygen saturation 96 % 96 % [facility] Arterial blood [facility] by Pulse oximetry Heart rate 84 /min 84 /min [facility] Body height 147.977478 147.502455 cm Health system Diastolic blood 84 mm[Hg] 84 mm[Hg] [facility] pressure Medical Center Systolic blood 169 mm[Hg] 169 mm[Hg] [facility] Body mass index 34.9 kg/m2 34.9 kg/m2 [place] (BMI) [Ratio] Medical [facility] Body temperature 36.430757 36.776135 [facility] Respiratory rate 18 /min 18 /min Health system Oxygen saturation 98 % 98 % [facility] blood [facility] by Pulse oximetry Heart rate 85 /min 85 /min [facility] Diastolic blood 84 mm[Hg] 84 mm[Hg] [facility] Systolic blood 146 mm[Hg] 146 mm[Hg] [facility] Oxygen saturation 98 % 98 % [facility] Arterial blood [facility] Center by Pulse oximetry Heart rate 89 /min 89 /min [facility] Diastolic blood 82 mm[Hg] 82 mm[Hg] [facility] Center Systolic blood 158 mm[Hg] 158 mm[Hg] [facility] Body temperature 36.832798 36.099604 [facility] Respiratory rate 18 /min 18 /min Health system Body weight 81.436845 81.735589 kg [facility] Measured kg [facility] Body temperature 36.206378 36.625771 [facility] Respiratory rate 16 /min 16 /min Health system Oxygen saturation 99 % 99 % [facility] Arterial blood [facility] by Pulse oximetry Heart rate 91 /min 91 /min [facility] Body height 152.547495 152.461015 cm [facility] Medical [place] Diastolic blood 88 mm[Hg] 88 mm[Hg] [facility] Systolic blood 138 mm[Hg] 138 mm[Hg] [facility] Center Body mass index 35.1 kg/m2 35.1 kg/m2 [place] [facility] (BMI) [Ratio] Medical [address] Body temperature 36.445097 36.513880 [facility] Respiratory rate 18 /min 18 /min Health system Oxygen saturation 98 % 98 % [facility] Arterial blood Medical Center by Pulse oximetry Heart rate 79 /min 79 /min [facility] Diastolic blood 71 mm[Hg] 71 mm[Hg] [facility] pressure Medical Center Systolic blood 131 mm[Hg] 131 mm[Hg] [facility] pressure Medical Center Diastolic blood 65 mm[Hg] 65 mm[Hg] eCW3 ([facility] pressure [facility]) Systolic blood 111 mm[Hg] 111 mm[Hg] eCW3 ([facility] on pressure [facility]) Body temperature 98.1 [degF] 98.1 [degF] eCW3 ( [facility]) Heart rate 18 /min 18 /min eCW3 ([facility]) Body mass index 39.81 kg/m2 39.81 kg/m2 eCW3 ([facility] (BMI) [Ratio] [facility]) Body weight 184.0 184.0 [lb_av] eCW3 ([facility] on [lb_av] [facility]) Body height 57.0 [in_i] 57.0 [in_i] eCW3 ([facility] n [facility]) Patient Treatment Plan of Care Planned Activity Planned Date Details Description Data Source (s) Vitamin B 12 0.05 MG 10/02/2019 12:00:00 eCW3 ([facility] Oral Tablet [facility]) Vitamin B 12 0.05 MG 10/02/2019 12:00:00 eCW3 ([facility] Oral Tablet [facility])
[2020-03-11 13:19] VITALS: BP 142/65; PULSE 77; TEMP 98.4; BMI 33.5
[2020-03-11] MEDS ORDERED: SODIUM PHOSPHATE/NA BIPHOS 133 ML ENEMA PR ONE (14:26)
[2020-03-11] MEDS ORDERED: ACETAMINOPHEN 500 MG TABLET (FP) PO ONE (15:01)
--- NOTE | 2020-03-11 15:08 | PDOC ---
History of Present Illness - General Chief Complaint: Constipation Stated Complaint: CONSTIPATION Time Seen by Provider: 03/11/20 12:38 History Source: Patient - History of Present Illness Timing/Duration: reports: constant Past History - Medical History Allergies/Adverse Reactions: Allergies Allergy/AdvReac Type Severity Reaction Status Date / Time Penicillins Allergy Unknown Verified 03/11/20 13:19 Home Medications: Ambulatory Orders Bupropion HCl [Bupropion Xl] 150 mg PO DAILY 07/24/19 Cholecalciferol (Vitamin D3) [Vitamin D3] 50,000 unit PO SA 07/24/19 Docusate Sodium [Colace -] 100 mg PO BID #60 capsule 07/24/19 Enalapril Maleate 2.5 mg PO DAILY 07/24/19 Mineral Oil Enema [Fleet Mineral Oil Rectal Enema -] 133 ml NR ONCE #7 enema 07/24/19 Amoxicillin/Potassium Clav [Augmentin 500-125 Tablet] 1 each PO BID 10 Days #20 tablet 02/20/20 Phenazopyridine HCl [Pyridium] 200 mg PO TID 2 Days #6 tablet 02/20/20 Phenazopyridine HCl [Pyridium] 200 mg PO TID 2 Days #6 tablet 02/23/20 Sulfamethoxazole/Trimethoprim [Bactrim Ds -] 1 tab PO BID 14 Days #28 tablet 02/23/20 Polyethylene Glycol 3350 [Miralax (For Daily Use) -] 17 gm PO DAILY #1 bottle 03/11/20 Anemia: No Asthma: No Cancer: No Cardiac Disorders: No CVA: No COPD: No CHF: No DVT: No Dementia: No Diabetes: No GI Disorders: No Disorders: No HTN: Yes Hypercholesterolemia: No Liver Disease: No Seizures: No Thyroid Disease: No - Surgical History Abdominal Surgery: Yes Appendectomy: Yes Cardiac Surgery: No Cholecystectomy: Yes Lung Surgery: No Neurologic Surgery: No Orthopedic Surgery: No - Reproductive History Is Patient Now?: No - Immunization History Immunization Up to Date: Yes - Psycho-Social/Smoking History Smoking Status: No Smoking History: Never smoked Have you smoked in the past 12 months: No Number of Cigarettes Smoked Daily: 0 Information on smoking cessation initiated: No - Substance Abuse Hx (Audit-C & DAST Scrn) How often the patient has a drink containing alcohol: Never Score: In Men: 4 or > Positive; In Women: 3 or > Positive: 0 Screen Result (Pos requires Nsg. Audit-10AR): Negative In the last yr the pt used illegal drug/Rx for NonMed reason: No Score: Yes response is considered Positive: 0 Screen Result (Positive result requires Nsg. DAST-10): Negative Abd/GI Specific PMHX - Complaint Specific PMHX Colitis: No Diverticulitis: No Gall Bladder Disease: No GERD: No Hepatitis: No Irritable Bowel Synd (IBS): No Pancreatitis: No GI Ulcer Disease: No Review of Systems - Review of Systems Constitutional: No: Fever ABD/GI: Yes: Constipated. No: Blood Streaked Bowels, Diarrhea, Nausea, Rectal Bleeding, Vomiting, Abdominal cramping *Physical Exam - Vital Signs Last Vital Signs Temp Pulse Resp BP Pulse Ox 98.4 F 77 17 142/65 99 03/11/20 12:35 03/11/20 12:35 03/11/20 12:35 03/11/20 12:35 03/11/20 12:35 - Physical Exam General Appearance: Yes: Appropriately Dressed. No: Apparent Distress HEENT: positive: Normal Voice Neck: positive: Supple Respiratory/Chest: negative: Respiratory Distress Gastrointestinal/Abdominal: positive: Normal Bowel Sounds, Soft. negative: Tender, Distended, Guarding, Rebound Rectal Exam: positive: other (no stool impaction) Musculoskeletal: negative: CVA Tenderness Integumentary: positive: Dry, Warm Neurologic: positive: Fully Oriented, Alert, Normal Mood/Affect Medical Decision Making - Medical Decision Making 03/11/20 15:02 89-year-old female, history of HTN, "nerve pain" to LLE, on celecoxib, remote zandra, here with complaint of constipation and has not moved her bowels in 4 days. No significant abdominal pain, BRBPR, nausea, vomiting, fever or chills. Is passing flatus. Patient states she is currently taking dulcolax and increasing fluids and fiber in her diet with no relief. No rectal pain or pressure. Has had constipation in the past per patient. States colonoscopy over 10 years ago unremarkable the patient. Denies prior abd surgery see exam Recurrent constipation Normal scopes in past Not on narcotics Stable w/ benign abd and no stool impaction on exam Abd XR c/w mild constipation, no e/o obs -enema in ER>reassess 03/11/20 16:40 Pt reports mid sized BM s/p enema. No abd pain, n/v at this time. Family now at bedside and feels safe taking pt home w/ bowel regimen and PMD f/u. Strict return precautions given Discharge - Discharge Information Problems reviewed: Yes Clinical Impression/Diagnosis: Constipation Qualifiers: Constipation type: unspecified constipation type Qualified Code(s): K59.00 - Constipation, unspecified Condition: Improved Disposition: HOME - Additional Discharge Information Prescriptions: Polyethylene Glycol 3350 [Miralax (For Daily Use) -] 17 gm PO DAILY #1 bottle - Follow up/Referral - Patient Discharge Instructions Patient Printed Discharge Instructions: Constipation Additional Instructions: Patient's x-ray consistent with mild constipation Administer MiraLAX as directed and if symptoms worsen, return to the ED immediately. Otherwise follow-up with your PMD - Post Discharge Activity
[2020-03-11] MEDS ORDERED: LACTULOSE 20 GM/30 ML UDC (FOR ORAL USE ONLY) PO ONE (15:54)
[2020-03-11] MEDS ORDERED: LACTULOSE 20 GM/30 ML UDC (FOR ORAL USE ONLY) ONE (16:32)
== END 2020-03-11 17:05 | disposition home or self-care (01) ==
LOC: JER 12:31 → JERFT 12:31
DX: K59.00 Constipation, unspecified (principal)
CPT/HCPCS: 74021-TC-FY; 99284-25

== ENCOUNTER 2020-12-22 07:12 | Emergency (ER) | payer OTHER ==
[2020-12-22 07:31] VITALS: BMI 30.4
[2020-12-22] MEDS ORDERED: SODIUM CHLORIDE 0.9% 500 ML INFUS.BAG IV ONE (09:06)
[2020-12-22 09:07] LABS: BASO % 1.4 % (0-2.0); EOS % 1.6 % (0-4.5); HEMATOCRIT 40.2 % (32.4-45.2); HEMOGLOBIN 13.7 GM/dL (10.7-15.3); LYMPH % 15.7 % (8-40); MCH 34.2 pg (25.7-33.7); MCHC 34.1 g/dl (32.0-36.0); MEAN CELL VOLUME 100.2 fl (80-96); MEAN PLT VOLUME 9.4 fl (7.5-11.1); MONO % 10.4 % (3.8-10.2); NEUT % 70.9 % (42.8-82.8); PLATELET COUNT 213 10^3/uL (134-434); RBC 4.01 M/mm3 (3.60-5.2); WHITE BLOOD COUNT 5.1 K/mm3 (4.0-10.0)
[2020-12-22 09:22] LABS: BLOOD UREA NITROGEN 12.4 mg/dL (7-18); CALCIUM 8.8 mg/dL (8.5-10.1)
[2020-12-22 09:23] LABS: ALBUMIN 3.6 g/dl (3.4-5.0)
[2020-12-22 09:25] LABS: CREATININE 0.7 mg/dL (0.55-1.3)
[2020-12-22 09:27] LABS: BILIRUBIN,TOTAL 1.1 mg/dL (0.2-1)
[2020-12-22 09:42] LABS: EPI CELLS 12 /uL (0-25.1); HYALINE CASTS 0 /uL (0-3.1); URINE APPEARANCE CLOUDY; URINE BACTERIA 1197 /uL (0-1359); URINE BILIRUBIN NEGATIVE (NEGATIVE); URINE COLOR YELLOW; URINE GLUCOSE (UA) NEGATIVE (NEGATIVE); URINE KETONE NEGATIVE (NEGATIVE); URINE LEUK ESTERASE 1+ (NEGATIVE); URINE NITRITE NEGATIVE (NEGATIVE); URINE PROTEIN NEGATIVE (NEGATIVE); URINE WBC 15 /uL (0-25.8)
[2020-12-22] MEDS ORDERED: CEFTRIAXONE 1,000 MG in DEXTROSE 5%-WATER - 50 ML IVPB ONE (10:19)
[2020-12-22] MEDS ORDERED: CEFTRIAXONE 1 GM/50 ML BAG ONE (10:25)
[2020-12-22 10:45] LABS: URINE RBC 73.8 /uL (0-23.9); YEAST NO SEEN (NEGATIVE)
[2020-12-22 16:43] VITALS: BP 174/75; PULSE 70; TEMP 97.6
[2020-12-23 07:07] LABS: SARS-CoV-2 NAA Not Detected (Not Detected)
== END 2020-12-22 16:44 | disposition home or self-care (01) ==
LOC: JER 07:12
DX: R19.7 Diarrhea, unspecified (principal)
CPT/HCPCS: 36415; 80053; 81003; 83605; 83690; 85025; 87077; 87086; 87324; 87449; 93005; 93010; 99284-25; C9803; U0003; U0005